=== PATIENT | female | born 1965 | race Caucasian/White ===

== ENCOUNTER 2024-09-11 14:09 | Outpatient (CLI) | payer BC, SELFPAY | END 2024-09-11 14:10 | disposition home or self-care (01) | PROVIDERS: PCP Family Medicine; Visit Provider Family Medicine | DX: N95.2 Postmenopausal atrophic vaginitis (principal); F41.8 Other specified anxiety disorders; Z11.51 Encounter for screening for human papillomavirus (HPV); Z11.59 Encounter for screening for other viral diseases | CPT/HCPCS: 80053; 80061; 86304; 86803 ==

== ENCOUNTER 2024-09-25 10:32 | Outpatient (CLI) | payer BC, SELFPAY ==
--- NOTE | 2024-09-25 10:45 | CRLHL7_ITS ---
For Patients: As a result of the Century Cures Act, medical imaging exams and procedure reports are released immediately into your electronic medical record. You may view this report before your referring provider. If you have questions, please contact your health care provider. CLINICAL HISTORY: Unspecified abdominal pain COMPARISON: none TECHNIQUE: Real time zarco scale imaging and color Doppler analysis was performed of the abdomen. FINDINGS: The liver is heterogeneous and coarsened in echotexture. There is a heterogeneous solid mass within the left hepatic lobe which distorts the contour of the liver. This measures 4.4 x 3.4 x 5.8 cm. Portal vein thrombosis is noted. No ascites. Pancreatic parenchyma is heterogeneous. Spleen is normal measuring 9.7 cm. There is no evidence of ascites. The gallbladder is of normal size and there is no evidence of sludge or stones within the gallbladder lumen. The gallbladder wall measures 2 mm in thickness. The common bile duct measures 3 mm in size within the jed hepatis. The kidneys appear symmetric. The right kidney measures 9.9 cm in length and the left kidney measures 8.6 cm. There is no evidence of a renal calculus or hydronephrosis. Proximal aorta 2.5 x 2.2 cm. Mid aorta 1.8 x 1.5 cm. Distal aorta 1.7 x 2.0 cm. Common iliac arteries measure 1.0 x 1.0 cm on the right and 1.1 x 0.9 cm on the left. No aneurysm. IMPRESSION: Chronic liver disease with left hepatic lobe mass which measures 5.8 cm. Portal vein thrombosis. Dynamic pre and postcontrast CT of the abdomen and pelvis recommended for further evaluation. Called to Dr. Casitllo 11:45 a.m. 09/25/2024. Dictated by Kana Ambrosio MD @ 09/25/2024 11:47:42 AM (Electronically Signed)
--- OUTSIDE RECORDS SUMMARY | 2024-09-26 01:03 | XMS_ITS ---
Author Name Interface, [id number] lity Address [place] [address] Organization [facility] Address [place] [address] Care Team Providers Care Door Puller Name Role Phone Kareen Adrianatnhony Solis Unavailable Unavailable Allergies and Adverse Reactions Medication/Group Name Reaction Severity Date Penicillins Rash 08/15/2022 Plan Date Type Value 03/14/2023 APPOINTMENT 1552 LAB MD 03/14/2023 APPOINTMENT 1552 LAB MD 02/13/2023 APPOINTMENT 1552 LAB MD 02/13/2023 APPOINTMENT 1552 LAB MD 08/15/2022 APPOINTMENT DETAILER HX MALIGNANT CANCER 08/15/2022 APPOINTMENT 1552 LAB 08/15/2022 LABORDER CMP 08/15/2022 LABORDER CBC w/ auto diff 08/15/2022 LABORDER CA 125 panel 03/14/2023 LABORDER CBC w/ auto diff 03/14/2023 LABORDER CMP 03/14/2023 LABORDER CA 125 panel Reason for Visit 1552 LAB MD Encounters Date Name 08/15/2022 Primary malignant ne oplasm of endometrium (disorder) Immunizations Date Name Route Dose Instructions Refusal Reason Stat us 09/28/2020 Covid-19 vaccine (Tiera) Completed Diagnostic Results Date Type Test Units Lower Limit Upper Limit Result Flag Comments Status Ordered By Specimen Source Lab Address 08/15 CMP Gluco se mg/dL 74.0 106.0 83 [facility]AL [facility]. [address] [place] [address]. [place] 08/15 CMP BUN mg/dL 7.0 18.0 12 [facility]. [address] [place] [address]. [place] 08/15 CMP Creat inine , mg/dL mg/dL 0.55 1.3 0.83 FINAL [facility]. [address] [place] [address]. [place] 08/15 CMP GFR estim ate ml/min /1.73m 2 83 Result based on the eGFR 2020 calculati on.60-89 mL/min/1. 73m^2 without kidney damage may be normal.60 -89 mL/min/1. 73m^2 for 3 months or more, along with kidney damage, mayindica te early kidney disease.C ginao n modified to the 2020 formula effective 07/08/22. FINAL [facility]. [address] [place] [address]. [place] 08/15 CMP BUN/C reati nine ratio 6.0 25.0 14.46 [facility]. [address] [place] [address]. [place] 08/15 CMP Sodiu m mmol/L 136.0 145.0 141 [facility]AL [facility]. [address] [place] [address]. [place] 08/15 CMP Potas sium mmol/L 3.5 5.1 4.2 FINAL [facility]. [address] [place] [address]. [place] 08/15 CMP Chlor ben mmol/L 97.0 107.0 103 [facility]AL [facility]. [address] [place] [address]. [place] 08/15 CMP CO2 mmol/L 21.0 32.0 29 [facility]. [address] [place] [address]. [place] 08/15 CMP Calci um mg/dL 8.5 10.1 8.7 [facility]. [address] [place] [address]. [place] 08/15 CMP Total prote in g/dL 6.4 8.2 7.7 [facility]. [address] [place] [address]. [place] 08/15 CMP Album in g/dL 3.4 5.0 3.4 [facility]. [address] [place] [address]. [place] 08/15 CMP Globu shiela g/dL 2.2 4.2 4.3 High [facility]. [address] [place] [address]. [place] 08/15 CMP A/G ratio 0.8 2.0 0.8 FINAL [facility]. [address] [place] [address]. [place] 08/15 CMP Bilir ubin, total mg/dL 0.2 1.0 0.30 [facility]. [address] [place] [address]. [place] 08/15 CMP Alkal ine phosp hatas e U/L 46.0 116.0 69 [facility]. [address] [place] [address]. [place] 08/15 CMP AST/S GOT U/L 15.0 37.0 23 [facility]. [address] [place] [address]. [place] 08/15 CMP ALT/S GPT U/L 14.0 59.0 34 [facility]. [address] [place] [address]. [place] 08/15 CA 125 panel CA 125, Sieme ns ICMA UNITS/ ML 2.0 30.2 12.1 CA 125 values from different assay methods can not be used interchan geably. is assay was performed using the AMS VariCodeass ay system. FINAL [facility]. [address] [place] [address]. [place] 08/15 CBC w/ auto diff WBC 10^3/u L 4.8 10.8 4.1 Low [facility]AL [facility]. [address] [place] [address] CLIA#[id number] 08/15 CBC w/ auto diff RBC 10^6/u L 4.2 5.4 4.13 Low [facility]. [address] [place] [address] CLIA#[id number] 08/15 CBC w/ auto diff HGB g/dL 12.0 16.0 13.2 [facility]. [address] [place] [address] CLIA#[id number] 08/15 CBC w/ auto diff HCT % 37.0 47.0 39.6 FINAL [facility]. [address] [place] [address] CLIA#[id number] 08/15 CBC w/ auto diff MCV fL 81.0 99.0 95.90 [facility]. [address] [place] [address] CLIA#[id number] 08/15 CBC w/ auto diff MCH pg 27.0 31.0 32.00 High [facility]AL [facility]. [address] [place] [address] CLIA#[id number] 08/15 CBC w/ auto diff MCHC g/dL 33.0 37.0 33.30 [facility]. [address] [place] [address] CLIA#[id number] 08/15 CBC w/ auto diff RDW % 10.5 14.5 14.40 [facility]. [address] [place] [address] CLIA#[id number] 08/15 CBC w/ auto diff PLT 10^3/u L 130.0 400.0 244 [facility]. [address] [place] [address] CLIA#[id number] 08/15 CBC w/ auto diff MPV fL 9.4 12.3 8.3 Low [facility]. [address] [place] [address] CLIA#[id number] 08/15 CBC w/ auto diff Jimi % % 40.0 77.0 47.3 FINAL [facility]. [address] [place] [address] CLIA#[id number] 08/15 CBC w/ auto diff LY % % 15.0 41.0 34.6 FINAL [facility]. [address] [place] [address] CLIA#[id number] 08/15 CBC w/ auto diff MO % % 3.0 11.[address] 17.[address] [facility]. [address] [place] [address] CLIA#[id number] 08/15 CBC w/ auto diff EO % % 0.0 3.0 0.0 [facility]. [address] [place] [address] CLIA#[id number] 08/15 CBC w/ auto diff BA % % 0.0 1.0 0.70 [facility]. [address] [place] [address] CLIA#[id number] 08/15 CBC w/ auto diff IG % % 0.0 0.5 0.20 [facility]. [address] [place] [address] CLIA#[id number] 08/15 CBC w/ auto diff Jimi # (ANC) 10^3/u L 1.5 6.5 1.9 [facility]. [address] [place] [address] CLIA#[id number] 08/15 CBC w/ auto diff LY # 10^3/u L 1.2 3.4 1.4 [facility]. [address] [place] [address] CLIA#[id number] 08/15 CBC w/ auto diff MO # 10^3/u L 0.0 0.8 0.7 [facility]. [address] [place] [address] CLIA#[id number] 08/15 CBC w/ auto diff EO # 10^3/u L 0.0 0.3 0.0 [facility]. [address] [place] [address] CLIA#[id number] 08/15 CBC w/ auto diff BA # 10^3/u L 0.0 0.2 0.03 [facility]. [address] [place] [address] CLIA#[id number] 08/15 CBC w/ auto diff IG # 10^3/u L 0.0 0.03 0.01 [facility]. [address] [place] [address] CLIA#[id number] 08/15 CBC w/ auto diff NRBC, absol chitina, x 10^3/ uL 0.0 0.01 0.00 [facility] Blood [place] [address] CLIA#[id number] 08/15 CBC w/ auto diff NRBC, % 0.0 0.2 0.00 [facility] [place] [address] CLIA#[id number] Medications Date Name Route Dose Frequency Instructions Start Date End Date Status Citalopram Oral PO 1.0 tablet daily active Problems Diagnosis Status Date of Diagnosi s Primary malignant neoplasm of endometrium (disor yocasta) Active Vital Signs Date Type Value 08/15/2022 Body Temperature 98.10 08/15/2022 Heart Beat 85.00 08/15/2022 Respiratory Rate 16.00 08/15/2022 Intravascular Systolic 138 08/15/2022 Intravascular Diastolic 74 08/15/2022 BSA 1.76 08/15/2022 Weight 159.40 08/15/2022 Height 63.00 08/15/2022 BMI 28.24 08/15/2022 Pain Scale 0.00 Notes Section * DIRECTOR OF DONOR [place] [address] ??P:?? PATIENT:??KALEIGH WILL :??1965 Date of Service:??08/15/2022 Referring Physician Reason for Consult/Chief Complaint endometrial cancer Principal Diagnosis * Primary malignant neoplasm of endometrium (disorder) ( First record:07/19/2017 Last record:07/19/2017; ICD-10:C54.1 ;Malignant neoplasm of endometrium ) Diagnosis* Treatment History ? Treatment History* History of Present Illness Kaleigh Will is a melonie 57 year old lady who presented with abnormal bleeding in 2018. 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 She then had robotic hyst/bso/sentinal LND showing Stage 1A, no LVSI, negative SLN. MMR intact. She did not have adjuvant therapy but in 01/24 she returned with bleeding and biopsy showed recurrent disease. She had PET showing widespread disease with peritoneal mets including a trocar site met. It was biopsied and grade 3. She underwent systemic chemo x 4of planned 6 cycles due to her intolerance to chemo. She then recurred again in the vaginal cuff [id number] and biopsy showed grade 2 c/w endometrial primary. She underwent EBRT and VBT completed 07/27.?? She has been in remission since that time.?? She reports genetic testing negative. PDL1 reportedly positive.?? The patient was requested to see me for further evaluation and management. Medical History endometrial cancer Surgical History ? Surgical History* robotic hyst/bso/SLND 2017 DRIFTMAN History ? DRIFTMAN History* G4 Family History ? Family History* mother colon cancer age 57 Social History Smoking Status Smoking Tobacco : none found; Smokeless Tobacco : none found; Vaping : none found Social History* nonsmoker, no etoh/drug abuse Review of Systems Gen: ??no fever/chills, no weight loss/gain, no night sweats Head: ??no headaches, dizziness, no confusion, no seizures, no tremor, no speech changes ENT: ??no vision or hearing changes respiratory: ??no shortness of breath/wheezing, no cough, no hemoptysis, no pleurisy CV: no shortness of breath, chest pain, palpitations, no syncope, no edema GI: ??No abdominal pain, no Nausea, no vomiting, no constipation, no diarrhea, no hematochezia, no jaundice, no hematemesis, no melena, no dyspepsia, no dysphagia : ??no vaginal discharge, no suprapubic pain, no abnormal vaginal bleeding; no dysuria, no hematuria, no nocturia, no urinary incontinence Musculoskeletal: ??no back pain, no muscle pain, no swollen joints, no joint redness, no bone pain,no spine tenderness lymphatics: no lymphadenopathy, no lymphedema Heme: no abnormal bleeding, no epistaxis, no gingival bleeding, no petechiae, no ecchymosis Skin: ??no rash/infection Psych: ??no anxiety/depression, normal concentration Medications * Progesterone Oral 100 mg capsule 2 CAPSULE(S) PO daily as directed * Travoprost Ophthalmic Drops 0.004 % 0.004 % drops 1 DROP(S) OU daily Medications reviewed and reconciled with patient.?? Medications* Allergies * Penicillins * bacitracin Allergies* Vitals/Performance Status Performance Status:??Karnofsky Not Assessed Vital Signs:??Height: 63 in; Weight: 159.4 lb; Blood pressure: 138/74, Pulse: 85, Temperature: 98.1F, Respirations: 16, Pain Scale: 0 Physical Exam Constitutional: ??VSSAF; appears stated age?? Gen: NAD, A&O x 3 Neuro: no focal deficit Eyes: normal pupils, equal, round, reactive ?? Neck: supple, no lymphadenopathy Lung: ??clear bilaterally ; good respiratory effort?? cardiovascular: regular rate and rhythm , normal S1S2 ?? abdomen: ??no abdominal mass, no hepatosplenomegaly, normal bowel sounds, ??soft abdomen, ??no tenderness to palpation?? Musculoskeletal: normal gait, adequate strength and muscle tone?? Genitourinary: ??normal external female genitalia, normal perineum, urethra, bladder, vaginal pritchard, vaginal cuff. Radiation changes noted. No palpable masses. Surgically absent uterus, cervix, adnexa?? Skin: no notable rashes or abnormalities?? Procedure Imaging Pathology Lab CBC None Today Chemistries LabResults 07/19/2017 07/09/2017 Chemistries Glucose mg/dL 89 BUN mg/dL 14 Creatinine, mg/dL 1 Sodium mmol/L 140 Potassium mmol/L 4.3 Chloride mmol/L 104 CO2 mmol/L 29 Calcium mg/dL 8.9 GFR estimate mL/min/1.73m2 68 Coags None Today Tumor Markers None Today Urine None Today Assessment 1. Endometrial Cancer, Stage 1A, Grade 1, recurrent in the peritoneum as grade 3 within one year and treated with chemo x 4 cycles. Recurrent in vaginal cuff 2019 and treated with EBRT and VBT. Now in Remission.?? Plan We have reviewed records from her referring physician. We discussed her extensive course and recurrences and treatment. She has been in remission since 2019 and feels well now. We have reviewed risksof recurrence and symptoms to watch for. She will have labs today and on return and we will plan for imaging with symptoms. She will call with any problems and plan to f/u in 6m.?? Problem List * Primary malignant neoplasm of endometrium (disorder) . Evan Adrian MD, [facility] Send copy of note to: MD Reji Carter MD . Electronically signed by Evan Adrian MD, [facility] 08/15/2022 14:08 CDT
--- OUTSIDE RECORDS SUMMARY | 2024-09-26 01:03 | XMS_ITS | CCD ---
Author Name Interface, [id number] lity Address [place] [address] Organization [facility] Address [place] breakthroughs[place] [address] Care Team Providers Care Printed Circuit Board Panels Plater Name Role Phone Evan Adrian Unavailable Unavailable Reason for Visit 1552 LAB MD Encounters Date Name 08/15/2022 Primary malignant ne oplasm of endometrium (disorder) Medications Date Name Route Dose Frequency Instructions Start Date End Date Status Citalopram Oral PO 1.0 tablet daily active 018 Travoprost Ophthalmic Drops 0.004 % OU 1.0 DROP(S) daily 07/20/19 18 2017 inactive 018 Progesterone Oral PO 2.0 CAPSULE(S ) daily as directed 07/20/19 18 2017 inactive Problems Diagnosis Status Date of Diagnosi s Body mass index [BMI] 21.0-21.9, adult Inactive Primary malignant neoplasm of endometrium (disor yocasta) Active Social History Date Name Value 08/14/2022 Sex Female
== END 2024-09-25 10:33 | disposition home or self-care (01) ==
LOC: US 10:33
PROVIDERS: PCP Family Medicine; Visit Provider Family Medicine
DX: R10.9 Unspecified abdominal pain (principal); K76.9 Liver disease, unspecified; R16.0 Hepatomegaly, not elsewhere classified; I81 Portal vein thrombosis
CPT/HCPCS: 76700

== ENCOUNTER 2024-09-26 10:40 | Outpatient (CLI) | payer BC, SELFPAY ==
--- OUTSIDE RECORDS SUMMARY | 2024-09-26 09:54 | XMS_ITS | Continuity of Care Document ---
Author Organization [facility] Address [address] [address] [place] [address] Phone Care Team Providers Care Bathing Suit Maker Name Role Phone No Information Unavailable Unavailable Advance Directives Directive Yes / No Effective Date File Name No Information Encounters Encounter Description Practice Location Reason(s) For Visit Diagnoses Date Provider Providers Copied on Encounter [facility], [address] [address], [place], [place], [id number], tel:[phone] No Information No Information Referring Provider: Aide Castillo MD E, [address], [place], [address]. tel:[phone] Family History Family Member Type Diagnosis Age At Onset No Information Payers Payer name Insurance type Covered green party ID Authoriza tion(s) No Information Social History Type Description Quantity Date Captured Comments Sex Female Smoking Status No Information Chief Complaint And Reason For Visit No Information Reason For Referral Reason For Referral No Information History Of Present Illness Encounter Date Complaint History Of Prese nt Illness No Information Functional Status Date Functional Assessmen t No Information Instructions Date Instruction Additional Infor mation No Information Assessments Type Assessment Date No Information Patient Care Teams Name Effective Dates (start - stop) Status Members No Information
--- OUTSIDE RECORDS SUMMARY | 2024-09-26 10:52 | XMS_ITS ---
Author Name Interface, G2Ucogthy lity Address [place] [address] Organization [facility] Address [place] [address] Care Team Providers Care Tire Technician Name Role Phone Kareen Adriananthony Solis Unavailable Unavailable Allergies and Adverse Reactions Medication/Group Name Reaction Severity Date Penicillins Rash 08/15/2022 Plan Date Type Value 03/14/2023 APPOINTMENT 1552 LAB MD 03/14/2023 APPOINTMENT 1552 LAB MD 02/13/2023 APPOINTMENT 1552 LAB MD 02/13/2023 APPOINTMENT 1552 LAB MD 08/15/2022 APPOINTMENT EXTENSION ASSOCIATE HX MALIGNANT CANCER 08/15/2022 APPOINTMENT 1552 LAB [...] Gluco se mg/dL 74.0 106.0 83 FINAL [facility]. [address] [place] [address]. [place] 08/15 CMP BUN mg/dL 7.[address] [facility]. [address] [place] [address]. [place] 08/15 CMP Creat inine , mg/dL mg/dL 0.55 1.3 0.83 FINAL [facility]. [address] [place] [address]. [place] 08/15 CMP GFR estim ate ml/min /1.73m 2 83 Result based on the eGFR 2020 calculati on.60-89 mL/min/1. 73m^2 without kidney damage may be normal.60 -89 mL/min/1. 73m^2 for 3 months or more, along with kidney damage, mayindica te early kidney disease.C ginao n modified to the 2020 formula effective 07/08/22. FINAL [facility]. [address] [place] [address]. [place] 08/15 CMP BUN/C reati nine ratio 6.[address] [facility]. [address] [place] [address]. [place] 08/15 CMP Sodiu m mmol/L 136.0 145.0 141 FINAL [facility]. [address] [place] [address]. [place] 08/15 CMP Potas sium mmol/L 3.5 5.1 4.2 FINAL [facility]. [address] [place] [address]. [place] 08/15 CMP Chlor ben mmol/L 97.0 107.0 103 FINAL [facility]. [address] [place] [address]. [place] 08/15 CMP CO2 mmol/L 21.0 32.0 29 FINAL [facility]. [address] [place] [address]. [place] 08/15 CMP Calci um mg/dL 8.[address] [facility]. [address] [place] [address]. [place] 08/15 CMP Total prote in g/dL 6.[address] [facility]. [address] [place] [address]. [place] 08/15 CMP Album in g/dL 3.[address] [facility]. [address] [place] [address]. [place] 08/15 CMP Globu shiela g/dL 2.[address] [facility]. [address] [place] [address]. [place] 08/15 CMP A/G ratio 0.8 2.0 0.8 FINAL [facility] Plasma [facility]. [address] [place] [address]. [place] 08/15 CMP Bilir ubin, total mg/dL 0.2 1.0 0.30 FINAL [facility] Plasma [facility]. [address] [place] [address]. [place] 08/15 CMP Alkal ine phosp hatas e U/L 46.0 116.0 69 FINAL [facility] Plasma [facility]. [address] [place] [address]. [place] 08/15 CMP AST/S GOT U/L 15.0 37.0 23 FINAL [facility] Plasma [facility]. [address] [place] [address]. [place] 08/15 CMP ALT/S GPT U/L 14.0 59.0 34 FINAL [facility] Plasma [facility]. [address] [place] [address]. [place] 08/15 CA 125 panel CA 125, Sieme ns ICMA UNITS/ ML 2.0 30.2 12.1 CA 125 values from different assay methods can not be used interchan geably. is assay was performed using the [employer] ay system. FINAL [facility] Serum [facility]. [address] [place] [address]. [place] 08/15 CBC w/ auto diff WBC 10^3/u L 4.8 10.8 4.1 Low FINAL [facility] Whole Blood [facility]. [address] [place] [address] CLIA#[id number] 08/15 CBC w/ auto diff RBC 10^6/u L 4.2 5.4 4.13 Low FINAL [facility] Whole Blood [facility]. [address] [place] [address] CLIA#[id number] 08/15 CBC w/ auto diff HGB g/dL 12.0 16.0 13.2 FINAL [facility] Whole Blood [facility]. [address] [place] [address] CLIA#[id number] 08/15 CBC w/ auto diff HCT % 37.0 47.0 39.6 FINAL [facility] Whole Blood [facility]. [address] [place] [address] CLIA#[id number] 08/15 CBC w/ auto diff MCV fL 81.0 99.0 95.90 FINAL [facility] Whole Blood [facility]. [address] [place] [address] CLIA#[id number] 08/15 CBC w/ auto diff MCH pg 27.0 31.0 32.00 High FINAL [facility] Whole Blood [facility]. [address] [place] [address] CLIA#[id number] 08/15 CBC w/ auto diff MCHC g/dL 33.0 37.0 33.30 FINAL [facility] Whole Blood [facility]. [address] [place] [address] CLIA#[id number] 08/15 CBC w/ auto diff RDW % 10.5 14.5 14.40 FINAL [facility] Whole Blood [facility]. [address] [place] [address] CLIA#[id number] 08/15 CBC w/ auto diff PLT 10^3/u L 130.0 400.0 244 FINAL [facility] Whole Blood [facility]. [address] [place] [address] CLIA#[id number] 08/15 CBC w/ auto diff MPV fL 9.4 12.3 8.3 Low FINAL [facility] Whole Blood [facility]. [address] [place] [address] CLIA#[id number] 08/15 CBC w/ auto diff Jimi % % 40.0 77.0 47.3 FINAL [facility] Whole Blood [facility]. [address] [place] [address] CLIA#[id number] 08/15 CBC w/ auto diff LY % % 15.0 41.0 34.6 FINAL [facility] Whole Blood [facility]. [address] [place] [address] CLIA#[id number] 08/15 CBC w/ auto diff MO % % 3.0 11.[address] Whole Blood [facility]. [address] [place] [address] CLIA#[id number] 08/15 CBC w/ auto diff EO % % 0.0 3.0 0.0 FINAL [facility] Whole Blood [facility]. [address] [place] [address] CLIA#[id number] 08/15 CBC w/ auto diff BA % % 0.0 1.0 0.70 FINAL [facility] Whole Blood [facility]. [address] [place] [address] CLIA#[id number] 08/15 CBC w/ auto diff IG % % 0.0 0.5 0.20 FINAL [facility] Whole Blood [facility]. [address] [place] [address] CLIA#[id number] 08/15 CBC w/ auto diff Jimi # (ANC) 10^3/u L 1.5 6.5 1.9 FINAL [facility] Whole Blood [facility]. [address] [place] [address] CLIA#[id number] 08/15 CBC w/ auto diff LY # 10^3/u L 1.2 3.4 1.4 [facility] Whole Blood [facility]. [address] [place] [address] CLIA#[id number] 08/15 CBC w/ auto diff MO # 10^3/u L 0.0 0.8 0.7 FINAL [facility] Whole Blood [facility]. [address] [place] [address] CLIA#[id number] 08/15 CBC w/ auto diff EO # 10^3/u L 0.0 0.3 0.0 FINAL [facility] Whole Blood [facility]. [address] [place] [address] CLIA#[id number] 08/15 CBC w/ auto diff BA # 10^3/u L 0.0 0.2 0.03 FINAL [facility] Whole Blood [facility]. [address] [place] [address] CLIA#[id number] 08/15 CBC w/ auto diff IG # 10^3/u L 0.0 0.03 0.01 FINAL [facility] Whole Blood [facility]. [address] [place] [address] CLIA#[id number] 08/15 CBC w/ auto diff NRBC, absol koi, x 10^3/ uL 0.0 0.01 0.00 FINAL [facility] Whole Blood [place] [address] CLIA#[id number] 08/15 CBC w/ auto diff NRBC, % 0.0 0.2 0.00 FINAL [facility] Whole Blood [place] [address] CLIA#[id number] Medications Date Name Route Dose Frequency Instructions [...] 08/15/2022 Pain Scale 0.00 Notes Section * LARD RENDERER [place] [address] ??P:?? PATIENT:??KALEIGH WILL :??1965 Date of Service:??08/15/2022 [...] then recurred again in the vaginal cuff [id number] and biopsy showed grade 2 c/w endometrial primary. She underwent EBRT and VBT completed 07/27.?? She has been in remission since that time.?? She reports genetic testing negative. PDL1 reportedly positive.?? The patient was requested to see me for further evaluation and management. Medical History endometrial cancer Surgical History ? Surgical History* robotic hyst/bso/SLND 2017 ASSISTANT TO THE PRESIDENT History ? ASSISTANT TO THE PRESIDENT History* G4 Family History ? Family History* [...] of endometrium (disorder) . Evan Adrian MD, [facility] Send copy of note to: MD Reji Carter MD . Electronically signed by Evan Adrian MD, [facility] 08/15/2022 14:08 CDT
--- OUTSIDE RECORDS SUMMARY | 2024-09-26 10:52 | XMS_ITS | CCD ---
Author Name Interface, G4Iusepba lity Address [place] [address] [facility] Address [place] [address] Care Team Providers Care Infusion Pharmacist Name Role Phone Evan Adrian Unavailable Unavailable Reason for Visit Encounters Medications Problems Social History
--- OUTSIDE RECORDS SUMMARY | 2024-09-26 10:52 | XMS_ITS ---
Author Name Interface, [id number] lity Address [place] [address] Organization [facility] Address 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 [address] [place] [address]. [place] 08/15 CMP BUN mg/dL 7.0 18.0 12 [facility]. [address] [place] [address]. [place] 08/15 CMP Creat inine , mg/dL mg/dL 0.55 1.3 0.83 FINAL [facility]. [address] [place] [address]. [place] 08/15 CMP GFR estim ate ml/min /1.73m 2 83 Result based on the eGFR 2020 calculati on.60-89 mL/min/1. 73m^2 without kidney damage may be normal.60 -89 mL/min/1. 73m^2 for 3 months or more, along with kidney damage, mayindica te early kidney disease.C ginao n modified to the 2020 formula effective 07/08/22. FINAL [facility]. [address] [place] [address]. [place] 08/15 CMP BUN/C reati nine ratio 6.0 25.0 14.46 [facility]. [address] [place] [address]. [place] 08/15 CMP Sodiu m mmol/L 136.0 145.0 141 FINAL [facility]. [address] [place] [address]. [place] 08/15 CMP Potas sium mmol/L 3.5 5.1 4.2 FINAL [facility]. [address] [place] [address]. [place] 08/15 CMP Chlor ben mmol/L 97.0 107.0 103 FINAL [facility]. [address] [place] [address]. [place] 08/15 CMP CO2 mmol/L 21.0 32.0 29 FINAL [facility]. [address] [place] [address]. [place] 08/15 CMP Calci um mg/dL 8.5 10.1 8.7 [facility]. [address] [place] [address]. [place] 08/15 CMP Total prote in g/dL 6.4 8.2 7.7 [facility]. [address] [place] [address]. [place] 08/15 CMP Album in g/dL 3.4 5.0 3.4 [facility]. [address] [place] [address]. [place] 08/15 CMP Globu shiela g/dL 2.2 4.2 4.3 High [facility]. [address] [place] [address]. [place] 08/15 CMP A/G ratio 0.8 2.0 0.8 FINAL [facility] Plasma [facility]. [address] [place] [address]. [place] 08/15 CMP Bilir ubin, total mg/dL 0.2 1.0 0.30 FINAL [facility] Plasma [facility]. [address] [place] [address]. [place] 08/15 CMP Alkal ine phosp hatas e U/L 46.0 116.0 69 FINAL [facility] Plasma [facility]. [address] [place] [address]. [place] 08/15 CMP AST/S GOT U/L 15.0 37.0 23 FINAL [facility] Plasma [facility]. [address] [place] [address]. [place] 08/15 CMP ALT/S GPT U/L 14.0 59.0 34 FINAL [facility] Plasma [facility]. [address] [place] [address]. [place] 08/15 CA 125 panel CA 125, Sieme ns ICMA UNITS/ ML 2.0 30.2 12.1 CA 125 values from different assay methods can not be used interchan geably. is assay was performed using the [employer] ay system. FINAL [facility] Serum [facility]. [address] [place] [address]. [place] 08/15 CBC w/ auto diff WBC 10^3/u L 4.8 10.8 4.1 Low FINAL [facility] Whole Blood [facility]. [address] [place] [address] CLIA#[id number] 08/15 CBC w/ auto diff RBC 10^6/u L 4.2 5.4 4.13 Low FINAL [facility] Whole Blood [facility]. [address] [place] [address] CLIA#[id number] 08/15 CBC w/ auto diff HGB g/dL 12.0 16.0 13.2 FINAL [facility] Whole Blood [facility]. [address] [place] [address] CLIA#[id number] 08/15 CBC w/ auto diff HCT % 37.0 47.0 39.6 FINAL [place] Whole Blood [facility]. [address] [place] [address] CLIA#[id number] 08/15 CBC w/ auto diff MCV fL 81.0 99.0 95.90 FINAL [facility] Whole Blood [facility]. [address] [place] [address] CLIA#[id number] 08/15 CBC w/ auto diff MCH pg 27.0 31.0 32.00 High FINAL [place] Whole Blood [facility]. [address] [place] [address] CLIA#[id number] 08/15 CBC w/ auto diff MCHC g/dL 33.0 37.0 33.30 FINAL [facility] Whole Blood [facility]. [address] [place] [address] CLIA#[id number] 08/15 CBC w/ auto diff RDW % 10.5 14.5 14.40 FINAL [facility] Whole Blood [facility]. [address] [place] [address] CLIA#[id number] 08/15 CBC w/ auto diff PLT 10^3/u L 130.0 400.0 244 FINAL [facility] Whole Blood [facility]. [address] [place] [address] CLIA#[id number] 08/15 CBC w/ auto diff MPV fL 9.4 12.3 8.3 Low FINAL [place] Whole Blood [facility]. [address] [place] [address] CLIA#[id number] 08/15 CBC w/ auto diff Jimi % % 40.0 77.0 47.3 FINAL [place] Whole Blood [facility]. [address] [place] [address] CLIA#[id number] 08/15 CBC w/ auto diff LY % % 15.0 41.0 34.6 FINAL [place] Whole Blood [facility]. [address] [place] [address] CLIA#[id number] 08/15 CBC w/ auto diff MO % % 3.0 11.[address] Whole Blood [facility]. [address] [place] [address] CLIA#[id number] 08/15 CBC w/ auto diff EO % % 0.0 3.0 0.0 FINAL [facility] Whole Blood [facility]. [address] [place] [address] CLIA#[id number] 08/15 CBC w/ auto diff BA % % 0.0 1.0 0.70 FINAL [facility] Whole Blood [facility]. [address] [place] [address] CLIA#[id number] 08/15 CBC w/ auto diff IG % % 0.0 0.5 0.20 FINAL [facility] Whole Blood [facility]. [address] [place] [address] CLIA#[id number] 08/15 CBC w/ auto diff Jimi # (ANC) 10^3/u L 1.5 6.5 1.9 FINAL [facility] Whole Blood [facility]. [address] [place] [address] CLIA#[id number] 08/15 CBC w/ auto diff LY # 10^3/u L 1.2 3.4 1.4 [facility] Whole Blood [facility]. [address] [place] [address] CLIA#[id number] 08/15 CBC w/ auto diff MO # 10^3/u L 0.0 0.8 0.7 FINAL [facility] Whole Blood [facility]. [address] [place] [address] CLIA#[id number] 08/15 CBC w/ auto diff EO # 10^3/u L 0.0 0.3 0.0 FINAL [facility] Whole Blood [facility]. [address] [place] [address] CLIA#[id number] 08/15 CBC w/ auto diff BA # 10^3/u L 0.0 0.2 0.03 FINAL [facility] Whole Blood [facility]. [address] [place] [address] CLIA#[id number] 08/15 CBC w/ auto diff IG # 10^3/u L 0.0 0.03 0.01 FINAL [facility] Whole Blood [facility]. [address] [place] [address] CLIA#[id number] 08/15 CBC w/ auto diff NRBC, absol wainwright, x 10^3/ uL 0.0 0.01 0.00 FINAL [facility] Whole Blood [place] [address] CLIA#[id number] 08/15 CBC w/ auto diff NRBC, % 0.0 0.2 0.00 FINAL [facility] Whole Blood [place] [address] CLIA#[id number] Medications Date Name Route Dose Frequency Instructions [...] 08/15/2022 Pain Scale 0.00 Notes Section * CATALOGUE [place]ER [place] [address] ??P:?? PATIENT:??KALEIGH WILL :??1965 Date of Service:??08/15/2022 [...] then recurred again in the vaginal cuff [id number] and biopsy showed grade 2 c/w endometrial primary. She underwent EBRT and VBT completed 07/27.?? She has been in remission since that time.?? She reports genetic testing negative. PDL1 reportedly positive.?? The patient was requested to see me for further evaluation and management. Medical History endometrial cancer Surgical History ? Surgical History* robotic hyst/bso/SLND 2017 AS400 ADMINISTRATOR History ? AS400 ADMINISTRATOR History* G4 Family History ? Family History* [...] of endometrium (disorder) . [place] Adrian MD, [facility] [place] Send copy of note to: MD Reji Carter MD . Electronically signed by Evan Adrian MD, [facility] 08/15/2022 14:08 CDT
--- OUTSIDE RECORDS SUMMARY | 2024-09-26 10:53 | XMS_ITS | CCD ---
Author Name Interface, D4Sbwgxks lity Address [place] [address] [facility] Address More breakthroughs[place] [address] Care Team Providers Care Communications Assistant Name Role Phone Evan Adrian Unavailable Unavailable Reason for Visit Encounters Medications Problems Social History
--- NOTE | 2024-09-26 11:00 | CRLHL7_ITS ---
For Patients: As a result of the Century Cures Act, medical imaging exams and procedure reports are released immediately into your electronic medical record. You may view this report before your referring provider. If you have questions, please contact your health care provider. 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 COMPARISON: 09/25/2024 abdominal ultrasound TECHNIQUE: CT of the abdomen and pelvis with and without intravenous contrast (74 milliliters Isovue 370). FINDINGS: Lung bases: No pleural effusion. Status post bilateral breast implants. Tiny hiatal hernia. Liver: There are multiple somewhat ill-defined heterogeneously hypoattenuating masses within the left greater than right hepatic lobe the largest of which is a segment 2/3 5.4 x 4.6 centimeter mass which causes prominent anterior bulging of the liver capsule (8/36). The main portal vein becomes difficult to identify as it approaches the hepatic hilum and becomes decreased in attenuation adjacent to multiple ill-defined hepatic masses at this region which, although somewhat difficult to characterize due to contrast bolus, is concerning for either bland thrombus or tumor in vein (8/34). The hepatic branches of the main portal vein are also difficult to visualize. Non cirrhotic liver morphology. There is a 8 millimeter lipoma in the right hepatic lobe (16/14). Gallbladder and biliary tree: Normal CT appearance of the gallbladder. There is mild multifocal left-sided intrahepatic biliary ductal dilation. No evidence of extrahepatic biliary ductal dilation. Spleen: No splenomegaly. Pancreas: Normal. Adrenal glands: Normal. Kidneys and ureters: No hydroureteronephrosis. No suspicious renal lesions are identified. 3 millimeter nonobstructing right lower pole renal calculus. Bladder: Unremarkable CT appearance. Visualized reproductive organs: Status post hysterectomy. Gastrointestinal tract: No focal abnormally dilated loops of bowel. Peritoneal cavity: No free fluid or free air. Lymph nodes: No enlarged abdominal or pelvic lymph nodes by CT size criteria. Vessels: No abdominal aortic aneurysm. Please see above for findings pertaining to the portal venous vasculature. Abdominal and pelvic wall: Mild diastasis of the rectus abdominis musculature. There is a indeterminate 22 x 11 millimeter soft tissue nodule within the subcutaneous fat of the right lateral abdominal wall immediately superficial to the lateral abdominal wall musculature (8/55). There is a partially imaged at least 23 x 13 millimeter soft tissue nodule in the subcutaneous fat of the right perineum anterolateral to the anus (8/129). Bones: There are osseous degenerative changes. There is diffuse osseous demineralization. There is a bilateral L5 pars defect with 8 millimeters anterolisthesis of L5 on S1. There is marked endplate irregularity and/or erosion, joint space narrowing, and subchondral sclerosis associated with L5-S1. There is slight anterior vertebral body wedging centered at the thoracolumbar junction. IMPRESSION: 1. Multiple somewhat ill-defined heterogeneously hypoattenuating masses in the left greater than right hepatic lobe are most suspicious for metastatic disease. Recommend tissue diagnosis. 2. The main portal vein becomes difficult to identify as it approaches the hepatic hilum and becomes decreased in attenuation adjacent to multiple ill-defined hepatic masses at this region which, although somewhat difficult to characterize due to contrast bolus, is concerning for either bland thrombus or tumor in vein. 3. Mild multifocal left-sided intrahepatic biliary ductal dilation. 4. Indeterminate 2.2 centimeter soft tissue nodule in the subcutaneous fat of the right lateral abdominal wall and partially imaged indeterminate at least 23 millimeter soft tissue nodule in the subcutaneous fat of the right perineum. 5. Bilateral L5 pars defects with 8 millimeters anterolisthesis of L5 on S1. Marked endplate irregularity and/or erosion, joint space narrowing, and subchondral sclerosis at L5-S1 is most likely degenerative, but should be correlated with physical exam to exclude infection as this can sometimes have a similar CT appearance. 6. Nonobstructing 3 millimeter right lower pole renal calculus. Please note that all CT scans at this facility use dose modulation, iterative reconstruction, and/or weight-based dosing when appropriate to reduce radiation dose to as low as reasonably achievable. Dictated by Hussain Field MD @ 09/26/2024 12:34:34 PM (Electronically Signed)
--- OUTSIDE RECORDS SUMMARY | 2024-09-26 13:53 | XMS_ITS | CCD ---
Author Name Interface, [id number] lity Address [place] [address] [facility] Address [place] breakthrough[place] [address] Care Team Providers Care Automotive Electrical Helper Name Role Phone Evan Adrian Unavailable Unavailable Reason for Visit Encounters Medications Problems Social History
--- OUTSIDE RECORDS SUMMARY | 2024-09-26 13:53 | XMS_ITS ---
Author Name Interface, [id number] lity Address [place] [address] Organization [facility] Address 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 [address] [place] [address]. [place] 08/15 CMP BUN mg/dL 7.0 18.0 12 [facility]. [address] [place] [address]. [place] 08/15 CMP Creat inine , mg/dL mg/dL 0.55 1.3 0.83 FINAL [facility]. [address] [place] [address]. [place] 08/15 CMP GFR estim ate ml/min /1.73m 2 83 Result based on the eGFR 2020 calculati on.60-89 mL/min/1. 73m^2 without kidney damage may be normal.60 -89 mL/min/1. 73m^2 for 3 months or more, along with kidney damage, mayindica te early kidney disease.C ginao n modified to the 2020 formula effective 07/08/22. FINAL [facility]. [address] [place] [address]. [place] 08/15 CMP BUN/C reati nine ratio 6.0 25.0 14.46 [facility]. [address] [place] [address]. [place] 08/15 CMP Sodiu m mmol/L 136.0 145.0 141 FINAL [facility]. [address] [place] [address]. [place] 08/15 CMP Potas sium mmol/L 3.5 5.1 4.2 FINAL [facility]. [address] [place] [address]. [place] 08/15 CMP Chlor ben mmol/L 97.0 107.0 103 FINAL [facility]. [address] [place] [address]. [place] 08/15 CMP CO2 mmol/L 21.0 32.0 29 FINAL [facility]. [address] [place] [address]. [place] 08/15 CMP Calci um mg/dL 8.5 10.1 8.7 [facility]. [address] [place] [address]. [place] 08/15 CMP Total prote in g/dL 6.4 8.2 7.7 [facility]. [address] [place] [address]. [place] 08/15 CMP Album in g/dL 3.4 5.0 3.4 [facility]. [address] [place] [address]. [place] 08/15 CMP Globu shiela g/dL 2.2 4.2 4.3 High [facility]. [address] [place] [address]. [place] 08/15 CMP A/G ratio 0.8 2.0 0.8 FINAL [facility] Plasma [facility]. [address] [place] [address]. [place] 08/15 CMP Bilir ubin, total mg/dL 0.2 1.0 0.30 FINAL [facility] Plasma [facility]. [address] [place] [address]. [place] 08/15 CMP Alkal ine phosp hatas e U/L 46.0 116.0 69 FINAL [facility] Plasma [facility]. [address] [place] [address]. [place] 08/15 CMP AST/S GOT U/L 15.0 37.0 23 FINAL [facility] Plasma [facility]. [address] [place] [address]. [place] 08/15 CMP ALT/S GPT U/L 14.0 59.0 34 FINAL [facility] Plasma [facility]. [address] [place] [address]. [place] 08/15 CA 125 panel CA 125, Sieme ns ICMA UNITS/ ML 2.0 30.2 12.1 CA 125 values from different assay methods can not be used interchan geably. is assay was performed using the Nimbula[employer] ay system. FINAL [facility] Serum [facility]. [address] [place] [address]. [place] 08/15 CBC w/ auto diff WBC 10^3/u L 4.8 10.8 4.1 Low FINAL [facility] Whole Blood [facility]. [address] [place] [address] CLIA#[id number] 08/15 CBC w/ auto diff RBC 10^6/u L 4.2 5.4 4.13 Low FINAL [facility] Whole Blood [facility]. [address] [place] [address] CLIA#[id number] 08/15 CBC w/ auto diff HGB g/dL 12.0 16.0 13.2 FINAL [facility] Whole Blood [facility]. [address] [place] [address] CLIA#[id number] 08/15 CBC w/ auto diff HCT % 37.0 47.0 39.6 FINAL [place] Whole Blood [facility]. [address] [place] [address] CLIA#[id number] 08/15 CBC w/ auto diff MCV fL 81.0 99.0 95.90 FINAL [facility] Whole Blood [facility]. [address] [place] [address] CLIA#[id number] 08/15 CBC w/ auto diff MCH pg 27.0 31.0 32.00 High FINAL [place] [facility] Whole Blood [facility]. [address] [place] [address] CLIA#[id number] 08/15 CBC w/ auto diff MCHC g/dL 33.0 37.0 33.30 FINAL [facility] Whole Blood [facility]. [address] [place] [address] CLIA#[id number] 08/15 CBC w/ auto diff RDW % 10.5 14.5 14.40 FINAL [facility] Whole Blood [facility]. [address] [place] [address] CLIA#[id number] 08/15 CBC w/ auto diff PLT 10^3/u L 130.0 400.0 244 FINAL [facility] Whole Blood [facility]. [address] [place] [address] CLIA#[id number] 08/15 CBC w/ auto diff MPV fL 9.4 12.3 8.3 Low FINAL [place] [facility] Whole Blood [facility]. [address] [place] [address] CLIA#[id number] 08/15 CBC w/ auto diff Jimi % % 40.0 77.0 47.3 FINAL [facility] [place] Whole Blood [facility]. [address] [place] [address] CLIA#[id number] 08/15 CBC w/ auto diff LY % % 15.0 41.0 34.6 FINAL [place] Whole Blood [facility]. [address] [place] [address] CLIA#[id number] 08/15 CBC w/ auto diff MO % % 3.0 11.0 17.2 High FIN[address] Whole Blood [facility]. [address] [place] [address] CLIA#[id number] 08/15 CBC w/ auto diff EO % % 0.0 3.0 0.0 FINAL [facility] Whole Blood [facility]. [address] [place] [address] CLIA#[id number] 08/15 CBC w/ auto diff BA % % 0.0 1.0 0.70 FINAL [facility] Whole Blood [facility]. [address] [place] [address] CLIA#[id number] 08/15 CBC w/ auto diff IG % % 0.0 0.5 0.20 FINAL [facility] Whole Blood [facility]. [address] [place] [address] CLIA#[id number] 08/15 CBC w/ auto diff Jimi # (ANC) 10^3/u L 1.5 6.5 1.9 FINAL [facility] Whole Blood [facility]. [address] [place] [address] CLIA#[id number] 08/15 CBC w/ auto diff LY # 10^3/u L 1.2 3.4 1.4 [facility] Whole Blood [facility]. [address] [place] [address] CLIA#[id number] 08/15 CBC w/ auto diff MO # 10^3/u L 0.0 0.8 0.7 FINAL [facility] Whole Blood [facility]. [address] [place] [address] CLIA#[id number] 08/15 CBC w/ auto diff EO # 10^3/u L 0.0 0.3 0.0 FINAL [facility] Whole Blood [facility]. [address] [place] [address] CLIA#[id number] 08/15 CBC w/ auto diff BA # 10^3/u L 0.0 0.2 0.03 FINAL [facility] Whole Blood [facility]. [address] [place] [address] CLIA#[id number] 08/15 CBC w/ auto diff IG # 10^3/u L 0.0 0.03 0.01 FINAL [facility] Whole Blood [facility]. [address] [place] [address] CLIA#[id number] 08/15 CBC w/ auto diff NRBC, absol [place], x 10^3/ uL 0.0 0.01 0.00 FINAL [facility] Whole Blood [place] [address] CLIA#[id number] 08/15 CBC w/ auto diff NRBC, % 0.0 0.2 0.00 FINAL [facility] Whole Blood [place] [address] CLIA#[id number] Medications Date Name Route Dose Frequency Instructions [...] 08/15/2022 Pain Scale 0.00 Notes Section * CHIEF CONTROLLER [place] [address] ??P:?? PATIENT:??KALEIGH WILL :??1965 Date of Service:??08/15/2022 [...] then recurred again in the vaginal cuff [id number] and biopsy showed grade 2 c/w endometrial primary. She underwent EBRT and VBT completed 07/27.?? She has been in remission since that time.?? She reports genetic testing negative. PDL1 reportedly positive.?? The patient was requested to see me for further evaluation and management. Medical History endometrial cancer Surgical History ? 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 ANNEALING OVEN OPERATOR History* G4 Family History ? Family History* [...] of endometrium (disorder) . Evan Adrian MD, [facility] Send copy of note to: MD Reji Carter MD . Electronically signed by Evan Adrian MD, [facility] 08/15/2022 14:08 CDT
--- OUTSIDE RECORDS SUMMARY | 2024-09-26 13:53 | XMS_ITS ---
Author Name Interface, [id number] lity Address [place] [address] Organization [facility] Address [place] breakthrough[place] [address] Care Team Providers Care Sales Applications Engineer Name Role Phone Kareen Adriananthony Solis Unavailable Unavailable Allergies and Adverse Reactions Medication/Group Name Reaction Severity Date Penicillins Rash 08/15/2022 Plan Date Type Value 03/14/2023 APPOINTMENT 1552 LAB MD 03/14/2023 APPOINTMENT 1552 LAB MD 02/13/2023 APPOINTMENT 1552 LAB MD 02/13/2023 APPOINTMENT 1552 LAB MD 08/15/2022 APPOINTMENT DIRECTOR OF CARDIOLOGY SERVICE LINE HX MALIGNANT CANCER 08/15/2022 APPOINTMENT 1552 LAB [...] Gluco se mg/dL 74.0 106.0 83 FINAL [facility]. [address] [place] [address]. [place] 08/15 CMP BUN mg/dL 7.0 18.0 12 [facility]. [address] [place] [address]. [place] 08/15 CMP Creat inine , mg/dL mg/dL 0.55 1.3 0.83 FINAL [facility]. [address] [place] [address]. [place] 08/15 CMP GFR estim ate ml/min /1.73m 2 83 Result based on the eGFR 2020 calculati on.60-89 mL/min/1. 73m^2 without kidney damage may be normal.60 -89 mL/min/1. 73m^2 for 3 months or more, along with kidney damage, mayindica te early kidney disease.C ginao n modified to the 2020 formula effective 07/08/22. FINAL [facility]. [address] [place] [address]. [place] 08/15 CMP BUN/C reati nine ratio 6.0 25.0 14.46 [facility]. [address] [place] [address]. [place] 08/15 CMP Sodiu m mmol/L 136.0 145.0 141 FINAL [facility]. [address] [place] [address]. [place] 08/15 CMP Potas sium mmol/L 3.5 5.1 4.2 FINAL [facility]. [address] [place] [address]. [place] 08/15 CMP Chlor ben mmol/L 97.0 107.0 103 FINAL [facility]. [address] [place] [address]. [place] 08/15 CMP CO2 mmol/L 21.0 32.0 29 FINAL [facility]. [address] [place] [address]. [place] 08/15 CMP Calci um mg/dL 8.5 10.1 8.7 [facility]. [address] [place] [address]. [place] 08/15 CMP Total prote in g/dL 6.4 8.2 7.7 [facility]. [address] [place] [address]. [place] 08/15 CMP Album in g/dL 3.4 5.0 3.4 [facility]. [address] [place] [address]. [place] 08/15 CMP Globu shiela g/dL 2.2 4.2 4.3 High [facility]. [address] [place] [address]. [place] 08/15 CMP A/G ratio 0.8 2.0 0.8 FINAL [facility] Plasma [facility]. [address] [place] [address]. [place] 08/15 CMP Bilir ubin, total mg/dL 0.2 1.0 0.30 FINAL [facility] Plasma [facility]. [address] [place] [address]. [place] 08/15 CMP Alkal ine phosp hatas e U/L 46.0 116.0 69 FINAL [facility] Plasma [facility]. [address] [place] [address]. [place] 08/15 CMP AST/S GOT U/L 15.0 37.0 23 FINAL [facility] Plasma [facility]. [address] [place] [address]. [place] 08/15 CMP ALT/S GPT U/L 14.0 59.0 34 FINAL [facility] Plasma [facility]. [address] [place] [address]. [place] 08/15 CA 125 panel CA 125, Sieme ns ICMA UNITS/ ML 2.0 30.2 12.1 CA 125 values from different assay methods can not be used interchan geably. is assay was performed using the AYLIENass ay system. FINAL [facility] Serum [facility]. [address] [place] [address]. [place] 08/15 CBC w/ auto diff WBC 10^3/u L 4.8 10.8 4.1 Low FINAL [facility] Whole Blood [facility]. [address] [place] [address] CLIA#[id number] 08/15 CBC w/ auto diff RBC 10^6/u L 4.2 5.4 4.13 Low FINAL [facility] Whole Blood [facility]. [address] [place] [address] CLIA#[id number] 08/15 CBC w/ auto diff HGB g/dL 12.0 16.0 13.2 FINAL [facility] Whole Blood [facility]. [address] [place] [address] CLIA#[id number] 08/15 CBC w/ auto diff HCT % 37.0 47.0 39.6 FINAL [place] Whole Blood [facility]. [address] [place] [address] CLIA#[id number] 08/15 CBC w/ auto diff MCV fL 81.0 99.0 95.90 FINAL [facility] Whole Blood [facility]. [address] [place] [address] CLIA#[id number] 08/15 CBC w/ auto diff MCH pg 27.0 31.0 32.00 High FINAL [place] Whole Blood [facility]. [address] [place] [address] CLIA#[id number] 08/15 CBC w/ auto diff MCHC g/dL 33.0 37.0 33.30 FINAL [facility] Whole Blood [facility]. [address] [place] [address] CLIA#[id number] 08/15 CBC w/ auto diff RDW % 10.5 14.5 14.40 FINAL [facility] Whole Blood [facility]. [address] [place] [address] CLIA#[id number] 08/15 CBC w/ auto diff PLT 10^3/u L 130.0 400.0 244 FINAL [facility] Whole Blood [facility]. [address] [place] [address] CLIA#[id number] 08/15 CBC w/ auto diff MPV fL 9.4 12.3 8.3 Low FINAL [place] Whole Blood [facility]. [address] [place] [address] CLIA#[id number] 08/15 CBC w/ auto diff Jimi % % 40.0 77.0 47.3 FINAL [place] [facility] Whole Blood [facility]. [address] [place] [address] CLIA#[id number] 08/15 CBC w/ auto diff LY % % 15.0 41.0 34.6 FINAL [place] [facility] Whole Blood [facility]. [address] [place] [address] CLIA#[id number] 08/15 CBC w/ auto diff MO % % 3.0 11.[address] Whole Blood [facility]. [address] [place] [address] CLIA#[id number] 08/15 CBC w/ auto diff EO % % 0.0 3.0 0.0 FINAL [facility] Whole Blood [facility]. [address] [place] [address] CLIA#[id number] 08/15 CBC w/ auto diff BA % % 0.0 1.0 0.70 FINAL [facility] Whole Blood [facility]. [address] [place] [address] CLIA#[id number] 08/15 CBC w/ auto diff IG % % 0.0 0.5 0.20 FINAL [facility] Whole Blood [facility]. [address] [place] [address] CLIA#[id number] 08/15 CBC w/ auto diff Jimi # (ANC) 10^3/u L 1.5 6.5 1.9 FINAL [facility] Whole Blood [facility]. [address] [place] [address] CLIA#[id number] 08/15 CBC w/ auto diff LY # 10^3/u L 1.2 3.4 1.4 [facility] Whole Blood [facility]. [address] [place] [address] CLIA#[id number] 08/15 CBC w/ auto diff MO # 10^3/u L 0.0 0.8 0.7 FINAL [facility] Whole Blood [facility]. [address] [place] [address] CLIA#[id number] 08/15 CBC w/ auto diff EO # 10^3/u L 0.0 0.3 0.0 FINAL [facility] Whole Blood [facility]. [address] [place] [address] CLIA#[id number] 08/15 CBC w/ auto diff BA # 10^3/u L 0.0 0.2 0.03 FINAL [facility] Whole Blood [facility]. [address] [place] [address] CLIA#[id number] 08/15 CBC w/ auto diff IG # 10^3/u L 0.0 0.03 0.01 FINAL [facility] Whole Blood [facility]. [address] [place] [address] CLIA#[id number] 08/15 CBC w/ auto diff NRBC, absol [place], x 10^3/ uL 0.0 0.01 0.00 FINAL [facility] Whole Blood [place] [address] CLIA#[id number] 08/15 CBC w/ auto diff NRBC, % 0.0 0.2 0.00 FINAL [facility] Whole Blood [place] [address] CLIA#[id number] Medications Date Name Route Dose Frequency Instructions [...] 08/15/2022 Pain Scale 0.00 Notes Section * GLASS BLOCK BENDER [place] [address] ??P:?? PATIENT:??KALEIGH WILL :??1965 Date of Service:??08/15/2022 [...] then recurred again in the vaginal cuff [id number] and biopsy showed grade 2 c/w endometrial primary. She underwent EBRT and VBT completed 07/27.?? She has been in remission since that time.?? She reports genetic testing negative. PDL1 reportedly positive.?? The patient was requested to see me for further evaluation and management. Medical History endometrial cancer Surgical History ? Surgical History* robotic hyst/bso/SLND 2017 ROLLER LEVELER History ? ROLLER LEVELER History* G4 Family History ? Family History* [...] Evan Adrian MD, [facility] Send copy of note to: MD Reji Carter MD . Electronically signed by Evan Adrian MD, [facility] 08/15/2022 14:08 CDT
--- OUTSIDE RECORDS SUMMARY | 2024-09-26 13:53 | XMS_ITS | CCD ---
Author Name Interface, [id number] lity Address [place] [address] [facility] Address More breakthroughs[place] [address] Care Team Providers Care Earth Science Technical Officer Name Role Phone Evan Adrian Unavailable Unavailable Reason for Visit Encounters Medications Problems Social History
--- OUTSIDE RECORDS SUMMARY | 2024-09-27 00:16 | XMS_ITS | CCD ---
Author Name Interface, [id number] lity Address More breakthroughs[place] [address] [facility] Address More breakthroughs. [place] [address] Care Team Providers Care Mechanical Engineering Intern Name Role Phone Evan Adrian Unavailable Unavailable Reason for Visit Encounters Medications Problems Social History
--- OUTSIDE RECORDS SUMMARY | 2024-09-27 00:16 | XMS_ITS ---
Author Name Interface, H2Vofsxaj lity Address [place] [address] Organization [facility] Address [place] [address] Care Team Providers Care Networking Administrator Name Role Phone NguyễnKareenanthony Solis Unavailable Unavailable Allergies and Adverse Reactions Medication/Group Name Reaction Severity Date Penicillins Rash 08/15/2022 Plan Date Type Value 03/14/2023 APPOINTMENT 1552 LAB MD 03/14/2023 APPOINTMENT 1552 LAB MD 02/13/2023 APPOINTMENT 1552 LAB MD 02/13/2023 APPOINTMENT 1552 LAB MD 08/15/2022 APPOINTMENT OPERATOR ASSISTANT I CEMENTING HX MALIGNANT CANCER 08/15/2022 APPOINTMENT 1552 LAB [...] Gluco se mg/dL 74.0 106.0 83 FINAL [facility]. [address] [place] [address]. [place] 08/15 CMP BUN mg/dL 7.0 18.0 12 [facility]. [address] [place] [address]. [place] 08/15 CMP Creat inine , mg/dL mg/dL 0.55 1.3 0.83 FINAL [facility]. [address] [place] [address]. [place] 08/15 CMP GFR estim ate ml/min /1.73m 2 83 Result based on the eGFR 2020 calculati on.60-89 mL/min/1. 73m^2 without kidney damage may be normal.60 -89 mL/min/1. 73m^2 for 3 months or more, along with kidney damage, mayindica te early kidney disease.C ginao n modified to the 2020 formula effective 07/08/22. FINAL [facility]. [address] [place] [address]. [place] 08/15 CMP BUN/C reati nine ratio 6.0 25.0 14.46 [facility]. [address] [place] [address]. [place] 08/15 CMP Sodiu m mmol/L 136.0 145.0 141 FINAL [facility]. [address] [place] [address]. [place] 08/15 CMP Potas sium mmol/L 3.5 5.1 4.2 FINAL [facility]. [address] [place] [address]. [place] 08/15 CMP Chlor ben mmol/L 97.0 107.0 103 FINAL [facility]. [address] [place] [address]. [place] 08/15 CMP CO2 mmol/L 21.0 32.0 29 FINAL [facility]. [address] [place] [address]. [place] 08/15 CMP Calci um mg/dL 8.5 10.1 8.7 [facility]. [address] [place] [address]. [place] 08/15 CMP Total prote in g/dL 6.4 8.2 7.7 [facility]. [address] [place] [address]. [place] 08/15 CMP Album in g/dL 3.4 5.0 3.4 [facility]. [address] [place] [address]. [place] 08/15 CMP Globu shiela g/dL 2.2 4.2 4.3 High [facility]. [address] [place] [address]. [place] 08/15 CMP A/G ratio 0.8 2.0 0.8 FINAL [facility] Plasma [facility]. [address] [place] [address]. [place] 08/15 CMP Bilir ubin, total mg/dL 0.2 1.0 0.30 FINAL [facility] Plasma [facility]. [address] [place] [address]. [place] 08/15 CMP Alkal ine phosp hatas e U/L 46.0 116.0 69 FINAL [facility] Plasma [facility]. [address] [place] [address]. [place] 08/15 CMP AST/S GOT U/L 15.0 37.0 23 FINAL [facility] Plasma [facility]. [address] [place] [address]. [place] 08/15 CMP ALT/S GPT U/L 14.0 59.0 34 FINAL [facility] Plasma [facility]. [address] [place] [address]. [place] 08/15 CA 125 panel CA 125, Sieme ns ICMA UNITS/ ML 2.0 30.2 12.1 CA 125 values from different assay methods can not be used interchan geably. is assay was performed using the Smuleass ay system. FINAL [facility] Serum [facility]. [address] [place] [address]. [place] 08/15 CBC w/ auto diff WBC 10^3/u L 4.8 10.8 4.1 Low FINAL [facility] Whole Blood [facility]. [address] [place] [address] CLIA#[id number] 08/15 CBC w/ auto diff RBC 10^6/u L 4.2 5.4 4.13 Low FINAL [facility] Whole Blood [facility]. [address] [place] [address] CLIA#[id number] 08/15 CBC w/ auto diff HGB g/dL 12.0 16.0 13.2 FINAL [facility] Whole Blood [facility]. [address] [place] [address] CLIA#[id number] 08/15 CBC w/ auto diff HCT % 37.0 47.0 39.6 FINAL [facility] [place] Whole Blood [facility]. [address] [place] [address] CLIA#[id number] 08/15 CBC w/ auto diff MCV fL 81.0 99.0 95.90 FINAL [facility] Whole Blood [facility]. [address] [place] [address] CLIA#[id number] 08/15 CBC w/ auto diff MCH pg 27.0 31.0 32.00 High FINAL [facility] [place] Whole Blood [facility]. [address] [place] [address] CLIA#[id number] 08/15 CBC w/ auto diff MCHC g/dL 33.0 37.0 33.30 FINAL [facility] Whole Blood [facility]. [address] [place] [address] CLIA#[id number] 08/15 CBC w/ auto diff RDW % 10.5 14.5 14.40 FINAL [facility] Whole Blood [facility]. [address] [place] [address] CLIA#[id number] 08/15 CBC w/ auto diff PLT 10^3/u L 130.0 400.0 244 FINAL [facility] Whole Blood [facility]. [address] [place] [address] CLIA#[id number] 08/15 CBC w/ auto diff MPV fL 9.4 12.3 8.3 Low FINAL [facility] [place] Whole Blood [facility]. [address] [place] [address] CLIA#[id number] 08/15 CBC w/ auto diff Jimi % % 40.0 77.0 47.3 FINAL [facility] [place] Whole Blood [facility]. [address] [place] [address] CLIA#[id number] 08/15 CBC w/ auto diff LY % % 15.0 41.0 34.6 FINAL [facility] [place] Whole Blood [facility]. [address] [place] [address] CLIA#[id number] 08/15 CBC w/ auto diff MO % % 3.0 11.[address] [facility]. [address] [place] [address] CLIA#[id number] 08/15 CBC w/ auto diff EO % % 0.0 3.0 0.0 FINAL [facility] Whole Blood [facility]. [address] [place] [address] CLIA#[id number] 08/15 CBC w/ auto diff BA % % 0.0 1.0 0.70 FINAL [facility] Whole Blood [facility]. [address] [place] [address] CLIA#[id number] 08/15 CBC w/ auto diff IG % % 0.0 0.5 0.20 FINAL [facility] Whole Blood [facility]. [address] [place] [address] CLIA#[id number] 08/15 CBC w/ auto diff Jimi # (ANC) 10^3/u L 1.5 6.5 1.9 FINAL [facility] Whole Blood [facility]. [address] [place] [address] CLIA#[id number] 08/15 CBC w/ auto diff LY # 10^3/u L 1.2 3.4 1.4 [facility] Whole Blood [facility]. [address] [place] [address] CLIA#[id number] 08/15 CBC w/ auto diff MO # 10^3/u L 0.0 0.8 0.7 FINAL [facility] Whole Blood [facility]. [address] [place] [address] CLIA#[id number] 08/15 CBC w/ auto diff EO # 10^3/u L 0.0 0.3 0.0 FINAL [facility] Whole Blood [facility]. [address] [place] [address] CLIA#[id number] 08/15 CBC w/ auto diff BA # 10^3/u L 0.0 0.2 0.03 FINAL [facility] Whole Blood [facility]. [address] [place] [address] CLIA#[id number] 08/15 CBC w/ auto diff IG # 10^3/u L 0.0 0.03 0.01 FINAL [facility] Whole Blood [facility]. [address] [place] [address] CLIA#[id number] 08/15 CBC w/ auto diff NRBC, absol match-e-be-[place], x 10^3/ uL 0.0 0.01 0.00 FINAL [facility] Whole Blood [place] [address] CLIA#[id number] 08/15 CBC w/ auto diff NRBC, % 0.0 0.2 0.00 FINAL [facility] Whole Blood [place] [address] CLIA#[id number] Medications Date Name Route Dose Frequency Instructions [...] 08/15/2022 Pain Scale 0.00 Notes Section * [employer] [place] [address] ??P:?? PATIENT:??KALEIGH WILL :??1965 Date of Service:??08/15/2022 [...] then recurred again in the vaginal cuff [id number] and biopsy showed grade 2 c/w endometrial primary. She underwent EBRT and VBT completed 07/27.?? She has been in remission since that time.?? She reports genetic testing negative. PDL1 reportedly positive.?? The patient was requested to see me for further evaluation and management. Medical History endometrial cancer Surgical History ? Surgical History* robotic hyst/bso/SLND 2017 SMELLER History ? SMELLER History* G4 Family History ? Family History* [...] of endometrium (disorder) . Evan Adrian MD, [facility] [place] Send copy of note to: MD Reji Carter MD . Electronically signed by Evan Adrian MD, [facility] 08/15/2022 14:08 CDT
--- OUTSIDE RECORDS SUMMARY | 2024-09-27 00:16 | XMS_ITS | CCD ---
Author Name Interface, [id number] lity Address [place] [address] [facility] Address [place] [address] Care Team Providers Care Site Physician Name Role Phone Evan Adrian Unavailable Unavailable Reason for Visit Encounters Medications Problems Social History
--- OUTSIDE RECORDS SUMMARY | 2024-09-27 00:16 | XMS_ITS ---
Author Name Interface, N0Olwvuln lity Address [place] [address] Organization [facility] Address [place] breakthroughs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 [address] [place] [address]. [place] 08/15 CMP BUN mg/dL 7.0 18.0 12 [facility]. [address] [place] [address]. [place] 08/15 CMP Creat inine , mg/dL mg/dL 0.55 1.3 0.83 FINAL [facility]. [address] [place] [address]. [place] 08/15 CMP GFR estim ate ml/min /1.73m 2 83 Result based on the eGFR 2020 calculati on.60-89 mL/min/1. 73m^2 without kidney damage may be normal.60 -89 mL/min/1. 73m^2 for 3 months or more, along with kidney damage, mayindica te early kidney disease.C ginao n modified to the 2020 formula effective 07/08/22. FINAL [facility]. [address] [place] [address]. [place] 08/15 CMP BUN/C reati nine ratio 6.0 25.0 14.46 [facility]. [address] [place] [address]. [place] 08/15 CMP Sodiu m mmol/L 136.0 145.0 141 FINAL [facility]. [address] [place] [address]. [place] 08/15 CMP Potas sium mmol/L 3.5 5.1 4.2 FINAL [facility]. [address] [place] [address]. [place] 08/15 CMP Chlor ben mmol/L 97.0 107.0 103 FINAL [facility]. [address] [place] [address]. [place] 08/15 CMP CO2 mmol/L 21.0 32.0 29 FINAL [facility]. [address] [place] [address]. [place] 08/15 CMP Calci um mg/dL 8.5 10.1 8.7 [facility]. [address] [place] [address]. [place] 08/15 CMP Total prote in g/dL 6.4 8.2 7.7 [facility]. [address] [place] [address]. [place] 08/15 CMP Album in g/dL 3.4 5.0 3.4 [facility]. [address] [place] [address]. [place] 08/15 CMP Globu shiela g/dL 2.2 4.2 4.3 High [facility]. [address] [place] [address]. [place] 08/15 CMP A/G ratio 0.8 2.0 0.8 FINAL [facility] Plasma [facility]. [address] [place] [address]. [place] 08/15 CMP Bilir ubin, total mg/dL 0.2 1.0 0.30 FINAL [facility] Plasma [facility]. [address] [place] [address]. [place] 08/15 CMP Alkal ine phosp hatas e U/L 46.0 116.0 69 FINAL [facility] Plasma [facility]. [address] [place] [address]. [place] 08/15 CMP AST/S GOT U/L 15.0 37.0 23 FINAL [facility] Plasma [facility]. [address] [place] [address]. [place] 08/15 CMP ALT/S GPT U/L 14.0 59.0 34 FINAL [facility] Plasma [facility]. [address] [place] [address]. [place] 08/15 CA 125 panel CA 125, Sieme ns ICMA UNITS/ ML 2.0 30.2 12.1 CA 125 values from different assay methods can not be used interchan geably. is assay was performed using the NetEffectass ay system. FINAL [facility] Serum [facility]. [address] [place] [address]. [place] 08/15 CBC w/ auto diff WBC 10^3/u L 4.8 10.8 4.1 Low FINAL [facility] Whole Blood [facility]. [address] [place] [address] CLIA#[id number] 08/15 CBC w/ auto diff RBC 10^6/u L 4.2 5.4 4.13 Low FINAL [facility] Whole Blood [facility]. [address] [place] [address] CLIA#[id number] 08/15 CBC w/ auto diff HGB g/dL 12.0 16.0 13.2 FINAL [facility] Whole Blood [facility]. [address] [place] [address] CLIA#[id number] 08/15 CBC w/ auto diff HCT % 37.0 47.0 39.6 FINAL [place] Whole Blood [facility]. [address] [place] [address] CLIA#[id number] 08/15 CBC w/ auto diff MCV fL 81.0 99.0 95.90 FINAL [facility] Whole Blood [facility]. [address] [place] [address] CLIA#[id number] 08/15 CBC w/ auto diff MCH pg 27.0 31.0 32.00 High FINAL [facility] [place] Whole Blood [facility]. [address] [place] [address] CLIA#[id number] 08/15 CBC w/ auto diff MCHC g/dL 33.0 37.0 33.30 FINAL [facility] Whole Blood [facility]. [address] [place] [address] CLIA#[id number] 08/15 CBC w/ auto diff RDW % 10.5 14.5 14.40 FINAL [facility] Whole Blood [facility]. [address] [place] [address] CLIA#[id number] 08/15 CBC w/ auto diff PLT 10^3/u L 130.0 400.0 244 FINAL [facility] Whole Blood [facility]. [address] [place] [address] CLIA#[id number] 08/15 CBC w/ auto diff MPV fL 9.4 12.3 8.3 Low FINAL [place] Whole Blood [facility]. [address] [place] [address] CLIA#[id number] 08/15 CBC w/ auto diff Jimi % % 40.0 77.0 47.3 FINAL [place] Whole Blood [facility]. [address] [place] [address] CLIA#[id number] 08/15 CBC w/ auto diff LY % % 15.0 41.0 34.6 FINAL [place] Whole Blood [facility]. [address] [place] [address] CLIA#[id number] 08/15 CBC w/ auto diff MO % % 3.0 11.0 17.2 High [address] Whole Blood [facility]. [address] [place] [address] CLIA#[id number] 08/15 CBC w/ auto diff EO % % 0.0 3.0 0.0 FINAL [facility] Whole Blood [facility]. [address] [place] [address] CLIA#[id number] 08/15 CBC w/ auto diff BA % % 0.0 1.0 0.70 FINAL [facility] Whole Blood [facility]. [address] [place] [address] CLIA#[id number] 08/15 CBC w/ auto diff IG % % 0.0 0.5 0.20 FINAL [facility] Whole Blood [facility]. [address] [place] [address] CLIA#[id number] 08/15 CBC w/ auto diff Jimi # (ANC) 10^3/u L 1.5 6.5 1.9 FINAL [facility] Whole Blood [facility]. [address] [place] [address] CLIA#[id number] 08/15 CBC w/ auto diff LY # 10^3/u L 1.2 3.4 1.4 [facility] Whole Blood [facility]. [address] [place] [address] CLIA#[id number] 08/15 CBC w/ auto diff MO # 10^3/u L 0.0 0.8 0.7 FINAL [facility] Whole Blood [facility]. [address] [place] [address] CLIA#[id number] 08/15 CBC w/ auto diff EO # 10^3/u L 0.0 0.3 0.0 FINAL [facility] Whole Blood [facility]. [address] [place] [address] CLIA#[id number] 08/15 CBC w/ auto diff BA # 10^3/u L 0.0 0.2 0.03 FINAL [facility] Whole Blood [facility]. [address] [place] [address] CLIA#[id number] 08/15 CBC w/ auto diff IG # 10^3/u L 0.0 0.03 0.01 FINAL [facility] Whole Blood [facility]. 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 PATIENT:??KALEIGH WILL :??1965 Date of Service:??08/15/2022 [...] then recurred again in the vaginal cuff [id number] and biopsy showed grade 2 c/w endometrial primary. She underwent EBRT and VBT completed 07/27.?? She has been in remission since that time.?? She reports genetic testing negative. PDL1 reportedly positive.?? The patient was requested to see me for further evaluation and management. Medical History endometrial cancer Surgical History ? Surgical History* robotic hyst/bso/SLND 2017 DIRECTOR STAFFING History ? DIRECTOR STAFFING History* G4 Family History ? Family History* [...] of endometrium (disorder) . Evan Adrian MD, [facility] [place] Send copy of note to: MD Reji Carter MD . Electronically signed by Evan Adrian MD, [facility] 08/15/2022 14:08 CDT
== END 2024-09-26 10:41 | disposition home or self-care (01) ==
PROVIDERS: PCP Family Medicine; Visit Provider Family Medicine
DX: R16.0 Hepatomegaly, not elsewhere classified (principal); I81 Portal vein thrombosis; N20.0 Calculus of kidney
CPT/HCPCS: 74170; Q9967

== ENCOUNTER 2025-01-20 13:22 | Emergency (ER) | payer BC, SELFPAY ==
--- OUTSIDE RECORDS SUMMARY | 2024-12-16 13:20 | XMS_ITS | Encounter Summary ---
Author Organization [facility] Address [address] [place] [address] Care Team Providers Care Legislators Name Role Phone Elsewhere, Pcp Primary Care Provider Unavailabl e Reason for Visit * Episode Based Medications (Routine) - Authorized Specialty Diagnoses / Procedures Referred By Contac t Referred To Contact Diagnoses Other Retirement Current Drug Therapy Melanoma Skin (HCC) Procedures OR NIVOLUMAB INJ OR IPILIMUMAB INJ 1 MG Yossi Cabrera M.D., Ph.D. [address] [place] [phone] Phone: tel: fax: Department of Oncology in [place], [place] [address] [place] [phone] Phone: tel: Referral ID Status Reason Start Date Expiration Date V isits Requested Visits Authorized [id number] Authorized 10/29/2024 01/29/2026 99 99 Encounter Details Date Type Department Care Team (Latest Contact Info) Description 12/16/2024 1:20 PM CDT - 12/16/2024 11:59 PM CDT Hospital Encounter Department of Laboratory Medicine in [address] [phone] Yossi Cabrera M.D., Ph.D. [address] [place] [phone] Other Retirement Current Drug Therapy; Melanoma Skin (HCC) Discharge Disposition: Home or Self Care Social History Tobacco Use Types Packs/Day Years Used Date Smoking Tobacco: Never Passive Smoke Exposure: Never Smokeless Tobacco: Never Alcohol Use Standard Drinks/Week Comments Yes 1 (1 standard drink = 0.6 oz pur e alcohol) 1 glass wine per month [facility] Utilities Answer Date Recorded In the past 12 months has e electric, gas, oil, or water company threatened to shut off services in your home? No 09/30/2024 Hunger Vital Sign Answer Date Recorded Within the past 12 months, y ou worried that your food would run out before you got the money to buy more. Never true 10/01/19 25 Within the past 12 months, t he food you bought just didn't last and you didn't have money to get more. Never true 09/30/2024 PRAPARE - Transportation Answer Date Re corded In the past 12 months, has l ack of transportation kept you from medical appointments or from getting medications? No 09/08 In the past 12 months, has l ack of transportation kept you from meetings, work, or from getting things needed for daily living? No 09/30/2024 Housing Stability Answer Date Recorded What is your living situation today? [facility] 09/30/2024 Comments No Sex and Gender Information Value Date Recorded Sex Assigned at Female 09/30/2024 9:25 AM CDT Legal Sex Female 12:05 PM CDT Gender Identity Female 09/30/2024 9:25 AM CDT Sexual Orientation Straight 09/30/2024 9: 25 AM CDT documented as of this encounter Medications at Time of Discharge acetaminophen (TylenoL) 500 mg tablet Take 1,000 mg by mouth every 6 (six) hours. ALPRAZolam (Xanax) 0.5 mg tablet Take 1 tablet by mouth every 12 (twelve) hours as needed for anxiety. 09/26/2024 apixaban (Eliquis) 5 mg tablet Take 1 tablet (5 mg total) by mouth 2 (two) times a day. 180 tablet 3 10/09/2024 chlorpheniramine maleate (CHLOR-TRIMETON ORAL) Take by mouth. citalopram (CeleXA) 40 mg tablet Take 1 tablet by mouth daily. 11/07/2024 estradioL (Estrace) 0.1 mg/g (0.01%) vaginal cream Insert 2 g into the vagina every 7 (seven) days. Has not started yet 09/11/2024 hydrOXYzine (Atarax) 25 mg tablet Take 1 tablet by mouth every 8 (eight) hours as needed for anxiety. 11/07/2024 multivitamin tablet Take 1 tablet by mouth daily. triamcinolone (Kenalog) 0.1 % cream Apply 1 Application topically 2 (two) times a day. Apply thin layer to areas of rash. 454 g 12/10/2024 documented as of this encounter Plan of Treatment Upcoming Encounters Date Type Department Care Team (Latest Contact Info) Description 01/23/2025 12:15 PM CDT Clinical Communication Virtual Review in [address] [phone] 01/23/2025 2:15 PM CDT Appointment Department of Radiology, [address] [phone] Yossi Cabrera M.D., Ph.D. [address] [place] [phone] 01/26/2025 11:15 AM CDT Appointment Department of Radiology, [address] [phone] Yossi Cabrera M.D., Ph.D. [address] [place] [phone] 01/26/2025 12:40 PM CDT Lab Department of Laboratory Medicine and Pathology, [address] [phone] Yossi Cabrera M.D., Ph.D. [address] [place] [phone] 01/27/2025 1:40 PM CDT Office Visit Department of Oncology in [address] [phone] Sara Rowan P.A.-C., M.S. [address] [place] [phone] 01/27/2025 2:30 PM CDT Infusion Department of Oncology in [place], [place] [address] [place] [phone] Yossi Cabrera M.D., Ph.D. 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 [address] [place] [phone] documented as of this encounter Procedures Procedure Name Priority Date/Time Associated Diagnosis Comments AURA ONCOEXTRA-GERMLINE Routine 12/16/2024 2:18 PM CDT Melanoma Skin (HCC) THYROID FUNCTION CASCADE, S Routine 12/16/2024 2:18 PM CDT Other Cigar Head Piercer Current Drug Therapy Melanoma Skin (HCC) CBC WITH DIFFERENTIAL, B Routine 12/16/2024 2:18 PM CDT Other Cigar Head Piercer Current Drug Therapy Melanoma Skin (HCC) COMPREHENSIVE METABOLIC PANEL, S/P Routine 12/16/2024 2:18 PM CDT Other Retirement Current Drug Therapy Melanoma Skin (HCC) documented in this encounter Results * Aura Exact OncoExTra-[place] - Sent Out Lab (12/16/2024 2:18 PM CDT) Aura OncoExtra-Lazaro mline Collected, Sent to Reference Lab DEFAULT 12/17/2024 7:28 AM CDT AURA Blood (Blood, Peripheral Draw) 12/16/2024 2:18 PM CDT 12/17/2024 7:28 AM CDT Yossi Cabrera M.D., Ph.D. LAB GENETIC TESTING Final Result [facility] AURA REFERRALS [address] [place] [address], [place] AURA [address] [place] [address] * Thyroid Function Mcgrann (12/16/2024 2:18 PM CDT) TSH, Sensitive 2.6 0.3 - 4.2 mIU/L 12/16/2024 3:51 PM CDT CNFL Blood (Blood, Venous) 12/16/2024 2:18 PM CDT 12/16/2024 2:21 PM CDT Yossi Cabrera M.D., Ph.D. LAB BLOOD ADD-ON Fin al Result [facility] [address] [place] [phone], [place] CNFL [facility] in [address] [address] * (ABNORMAL) Comprehensive Metabolic Panel (12/16/2024 2:18 PM CDT) Potassium, P 3.9 3.6 - 5.2 mmol/L 12/16/2024 2:41 PM CDT CNFL Sodium, P 133(L) 135 - 145 mmol/L 12/16/2024 2:41 PM CDT CNFL Chloride, P 101 98 - 107 mmol/L 12/16/2024 2:41 PM CDT CNFL Bicarbonate, P 25 22 - 29 mmol/L 12/16/2024 2:41 PM CDT CNFL Anion Gap, P 7 7 - 15 12/16/2024 2:41 PM CDT CNFL BUN (Blood Urea Nitrogen), P 7 6 - 21 mg/dL 12/16/2024 2:41 PM CDT CNFL Creatinine 0.58(L) 0.59 - 1.04 mg/dL 12/16/2024 2:41 PM CDT CNFL Estimated GFR (eGFR) >90 >=60 mL/min/BS A 12/16/2024 2:41 PM CDT CNFL Comment: Estimated GFR calculated using the 2020 CKD_EPI creatinine equation. Calcium, Total, P 8.8 8.6 - 10.0 mg/dL 12/16/2024 2:41 PM CDT CNFL Glucose, P 97 70 - 140 mg/dL 12/16/2024 2:41 PM CDT CNFL Protein, Total, P 6.9 6.3 - 7.9 g/dL 12/16/2024 2:41 PM CDT CNFL Albumin, P 3.1(L) 3.5 - 5.0 g/dL 12/16/2024 2:41 PM CDT CNFL Aspartate Aminotransferase (AST), P 22 8 - 43 U/L 12/16/2024 2:41 PM CDT CNFL Alkaline Phosphatase, P 227(H) 35 - 104 U/L 12/16/2024 2:41 PM CDT CNFL Alanine Aminotransferase (ALT), P 27 7 - 45 U/L 12/16/2024 2:41 PM CDT CNFL Bilirubin, Total, P 0.3 0.0 - 1.2 mg/dL 12/16/2024 2:41 PM CDT CNFL Blood (Blood, Venous) 12/16/2024 2:18 PM CDT 12/16/2024 2:21 PM CDT us Yossi Cabrera M.D., Ph.D. LAB BLOOD ADD-ON Fin al Result [facility] [address] [place], [place] [id number], [facility] CNFL [facility] [place] [address] * (ABNORMAL) CBC with Differential, Blood (12/16/2024 2:18 PM CDT) Hemoglobin 9.5(L) 11.6 - 15.0 g/dL 12/16/2024 2:29 PM CDT CNFL Hematocrit 29.1(L) 35.5 - 44.9 % 12/16/2024 2:29 PM CDT CNFL Erythrocytes 3.24(L) 3.92 - 5.13 x10(12)/L 12/16/2024 2:29 PM CDT CNFL MCV 89.8 78.2 - 97.9 fL 12/16/2024 2:29 PM CDT CNFL RBC Distrib Width 20.4(H) 12.2 - 16.1 % 12/16/2024 2:29 PM CDT CNFL Platelet Count 381(H) 157 - 371 x10(9)/L 12/16/2024 2:29 PM CDT CNFL Leukocytes 5.1 3.4 - 9.6 x10(9)/L 12/16/2024 2:29 PM CDT CNFL Neutrophils 3.06 1.56 - 6.45 x10(9)/L 12/16/2024 2:29 PM CDT CNFL Lymphocytes 1.40 0.95 - 3.07 x10(9)/L 12/16/2024 2:29 PM CDT CNFL Monocytes 0.64 0.26 - 0.81 x10(9)/L 12/16/2024 2:29 PM CDT CNFL Eosinophils <0.04 0.03 - 0.48 x10(9)/L 12/16/2024 2:29 PM CDT CNFL Basophils <0.04 0.01 - 0.08 x10(9)/L 12/16/2024 2:29 PM CDT CNFL Blood (Blood, Venous) 12/16/2024 2:18 PM CDT 12/16/2024 2:21 PM CDT us Yossi Cabrera M.D., Ph.D. LAB BLOOD ADD-ON Fin al Result [facility] [address] [place] [phone], [facility] CNFL [facility] [place] [address] documented in this encounter Visit Diagnoses Diagnosis Other Retirement Current Drug Therapy Melanoma Skin (HCC) documented in this encounter Additional Health Concerns Infection Onset Date Last Indicated Resolved Time Protective Environment 11/04/2024 11/04/2024 documented as of this encounter Care Teams Legislators Relationship Specialty Start Date End Date Elsewhere, Pcp PCP - General Internal Medicine 09/28/24 documented as of this encounter
--- OUTSIDE RECORDS SUMMARY | 2024-12-17 13:40 | XMS_ITS | Encounter Summary ---
Author Organization [facility] Address [address] [place] [address] Care Team Providers Care Wellhead Pumper Name Role Phone Elsewhere, Pcp Primary Care Provider Unavailabl e Reason for Visit * Episode Based Medications (Routine) - Authorized Specialty Diagnoses / Procedures Referred By Contac t Referred To Contact Diagnoses Other Custodial Current Drug Therapy Melanoma Skin (HCC) Procedures RI NIVOLUMAB INJ RI IPILIMUMAB INJ 1 MG Yossi Cabrera M.D., Ph.D. [address] [place] [phone] Phone: tel: fax: Department of Oncology in [place], [place] [address] [place] [phone] Phone: tel: Referral ID Status Reason Start Date Expiration Date V isits Requested Visits Authorized [id number] Authorized 10/29/2024 01/29/2026 99 99 Encounter Details Date Type Department Care Team (Late st Contact Info) Description 12/17/2024 1:40 PM CDT Office Visit Department of Oncology in [place], [place] [address] [place] [phone] Sara Rowan P.A.-C., M.S. [address] [place] [phone] Melanoma Skin (HCC) (Primary Dx); Secondary Malignant Neoplasm Brain (HCC); Secondary Malignant Neoplasm Soft Tissue (HCC); Other Body Former Current Drug Therapy; Rash; Anemia Social History Tobacco Use Types Packs/Day Years Used Date Smoking Tobacco: Never Passive Smoke Exposure: Never Smokeless Tobacco: Never Tobacco Cessation:Counseling Given: Not Answered Alcohol Use Standard Drinks/Week Comments Yes 1 (1 standard drink = 0.6 oz pur e alcohol) 1 glass wine per month [facility] Utilities Answer Date Recorded In the past 12 months has th e electric, gas, oil, or water company [...] your living situation today? [facility] 09/30/2024 Comments No Sex and Gender Information Value Date Recorded Sex Assigned at Female 09/30/2024 9:25 AM CDT Legal Sex Female 12:05 PM CDT Gender Identity Female 09/30/2024 9:25 AM CDT Sexual Orientation Straight 09/30/2024 9: 25 AM CDT documented as of this encounter Last Filed Vital Signs Vital Sign Reading Time Taken Comments Blood Pressure 110/71 12/17/2024 1:44 PM CDT Pulse 96 12/17/2024 1:44 PM CDT Temperature 36.4 C (97.5 F) 12/17/2024 1:44 PM CDT Respiratory Rate 16 12/17/2024 1:44 PM CDT Oxygen Saturation 98% 12/17/2024 1:44 PM CDT Inhaled Oxygen Concentration - - Weight 64.9 kg (143 lb 1.3 oz) 12/17/2024 1:44 P M CDT Height 158.9 cm (5' 2.56) 12/17/2024 1:44 PM CD T Body Mass Index 25.7 12/17/2024 1:44 PM CDT documented in this encounter Progress Notes * Sara Rowan P.A.-C., M.S. - 12/17/2024 1:40 PM CDT SUBJECTIVE REQUESTING PROVIDER Yossi Cabrera M.D., Ph.D. [address] [place] [phone] PRIMARY COLLABORATING PROVIDER Yossi Cabrera M.D., Ph.D. CHIEF CONCERN Kaleigh Will is a 59 y.o. female with BRAF mutated metastatic melanoma who is currently on ipilimumab and nivolumab. Presents today for clinical evaluation and lab review prior to her third infusion. HISTORY OF PRESENT ILLNESS Oncology History Oncology History Melanoma Skin (HCC) 08/07/2024 Other Patient began feeling night sweats, anorexia, fatigue. From August until mid October, she lost without trying 10 lb. 10/01/2024 Critical Imaging FDG PET scan showed hepatic and multiple musculoskeletal masses. Musculoskeletal masses included the right adductor musculature, medial right thigh, right inferior flank, and right thyroid. 10/03/2024 Clinical Stage Staging form: Melanoma Of The Skin, AJCC 8th Edition - Clinical stage from 10/03/2024: Stage IV (cT0, cN0, pM1d(1)) 10/03/2024 Biopsy/Pathology Fine-needle aspiration of mass on right flank returned with malignant melanoma. From the report: The neoplastic cells are positive for SOX10, S100, Melan A, BRAF, CD117 while negative for AE1/AE3, PAX8, TTF1, WT-1, Desmin and chromogranin. The neoplastic cells retain INI-1, and BRG. 10/14/2024 Critical Imaging MR brain with and without contrast showed 4 lesions, with the largest in the left occipital lobe at1.8 cm in diameter. 10/30/2024 Biopsy/Pathology Biopsy of liver is positive for metastatic melanoma 11/04/2024 - Chemotherapy Nivolumab 3 mg/kg / Ipilimumab 1 mg/kg ( Maintenance Cycles 480 mg every 28 days) Start Date: 11/04/2024 11/11/2024 Surgery and Procedures GK therapy to right frontal tumor, left frontal tumor x 2, left occipital, left parietal tumor, andright temporal tumor. Malignant Neoplasm Of Uterus Endometrial (HCC) 2017 Initial Diagnosis Malignant Neoplasm Of Uterus Endometrial (HCC). This was diagnosed at an outside institution in [place] after an episode of abnormal uterine bleeding. 08/2017 Surgery and Procedures Patient received total abdominal hysterectomy and bilateral oophorectomy. 04/2018 - Chemotherapy 9 months after total abdominal hysterectomy and oophorectomy, patient had a recurrence and receivedchemotherapy, believed to be carbo Taxol. Her platelets decreased significantly at the time. 06/2019 - Radiation Therapy Approximately 1 year after receiving chemotherapy, there was an additional recurrence of the patient's cancer which included on imaging a ???spot?? on her abdomen and liver. She received 30 days of pelvic radiation, followed by vaginal brachytherapy. INTERVAL HISTORY Kaleigh Will presents to clinic today accompanied by her spouse, Gato. She reports good tolerance of ipilimumab and nivolumab with the exception of a rash which started around the time she discontinued 2 mg of oral dexamethasone just over a week ago. She did message in about this concern andwas informed to take 10 mg Claritin daily, 25 mg Benadryl nightly, and use topical triamcinolone cream twice daily. She states this regimen has helped. She does note increased abdominal bloating overthe past 3 weeks, but feels palpable mass on right lateral back and right groin have decreased in size. REVIEW OF SYSTEMS A 14-point review of systems was completed and negative except as noted above in the interval history. OBJECTIVE PAST MEDICAL/SURGICAL HISTORY Medical History[1] Surgical History[2] ALLERGIES Allergies Allergen Reactions Hydrophilic Cream Rash Penicillins Rash Pollen Extracts Other (see comments) Congestion MEDICATIONS Active Home Medications Medication Sig Taking acetaminophen (TylenoL) 500 mg tablet Take 1,000 mg by mouth every 6 (six) hours. Yes ALPRAZolam (Xanax) 0.5 mg tablet Take 1 tablet by mouth every 12 (twelve) hours as needed for anxiety. Yes apixaban (Eliquis) 5 mg tablet Take 1 tablet (5 mg total) by mouth 2 (two) times a day. Yes chlorpheniramine maleate (CHLOR-TRIMETON ORAL) Take by mouth. Yes citalopram (CeleXA) 40 mg tablet Take 1 tablet by mouth daily. Yes estradioL (Estrace) 0.1 mg/g (0.01%) vaginal cream Insert 2 g into the vagina every 7 (seven) days.Has not started yet Yes hydrOXYzine (Atarax) 25 mg tablet Take 1 tablet by mouth every 8 (eight) hours as needed for anxiety. Yes multivitamin tablet Take 1 tablet by mouth daily. Yes triamcinolone (Kenalog) 0.1 % cream Apply 1 Application topically 2 (two) times a day. Apply thin layer to areas of rash. Yes SOCIAL HISTORY Kaleigh Will lives in [place], [place], with her spouse, Gato. PHYSICAL EXAMINATION ECOG performance score: 0 - asymptomatic BP 110/71 (BP Location: Right arm, Patient Position: Sitting, Cuff Size: Regular) Pulse 96 Temp36.4 ??C (Temporal) Resp 16 Ht 158.9 cm Wt 64.9 kg SpO2 98% BMI 25.70 kg/m?? General: Well-developed female sitting comfortably in clinic room. Eyes: Extraocular movements intact. ENT: Mucous membranes moist. Neck: No thyromegaly noted. Lymph Nodes: No cervical, supraclavicular, axillary, or inguinal lymphadenopathy. Cardiovascular: Regular rate and rhythm. No murmurs, rubs, or gallops. Lungs: Clear to auscultation bilaterally. No use of accessory muscles. No rales, rhonchi, or wheezes. Extremities: No edema or cyanosis. Musculoskeletal: Normal range of motion. No swollen or erythematous joints. Skin: Warm and dry. Mild rash on bilateral forearms. Neurological: Alert and oriented x 3. Psychiatry: No overt anxiety or depression. DIAGNOSTICS LABORATORY DATA Reviewed. RADIOLOGICAL DATA Reviewed. ASSESSMENT / PLAN #1 Melanoma Skin (HCC) #2 Secondary Malignant Neoplasm Brain (HCC) #3 Secondary Malignant Neoplasm Soft Tissue (HCC) #4 Other Custodial Current Drug Therapy Kaleigh Will is a 59 y.o. female with BRAF mutated metastatic melanoma who is currently on ipilimumab and nivolumab. Presents today for clinical evaluation and lab review prior to next infusion. She reports good tolerance of ipilimumab and nivolumab with the exception of a rash, which I've discussed further below. She does not increased abdominal bloating over the past 3 weeks, but feels palpable mass on right lateral back and right groin have decreased in size. Labs reveal worsening anemia, discussed below. Per clinical evaluation, ECOG status, and lab review, patient is okay to proceed with infusion today. Plan to return to clinic in 3 weeks for her fourth infusion. Imaging scheduled for 01/27/25. #5 Rash Rash started around the time she discontinued 2 mg of oral dexamethasone just over a week ago. She did message in about this concern and was informed to take 10 mg Claritin daily, 25 mg Benadryl nightly, and use topical triamcinolone cream twice daily. She states this regimen has helped. I also encouraged lukewarm baths/showers and routine moisturization with unscented cream such as Vanicream, CereVe, or Eucerin. #6 Anemia Hemoglobin has dropped from 11.9 to 9.5 over the past 3 weeks. Kaleigh denies any notable bleeding with the exception of some bleeding with blowing her nose. Denies black tarry stools or overt blood instool. Will check this in a week to ensure it does not continue to decline. If declining further, we will complete further workup to rule out occult bleed. PATIENT EDUCATION Ready to learn, no apparent learning barriers were identified; learning preferences include listening. Explained diagnosis and treatment plan; patient expressed understanding of the content. Discussed with the patient we work together as a care team of physicians, nurse practitioners/physician assistants, nurses and other bilingual patient support caseworker that specialize in this cancer. Also, reviewed the importance of maintaining ongoing care with local oncology team and primary care physician. BILLING I spent an additional 30 minutes beyond treatment clearance reviewing chart, managing above symptoms, and placing follow-up orders. [1] No past medical history on file. [2] Past Surgical History: Procedure Laterality Date APPLICATION STEREOTACTIC HEAD FRAME N/A 11/11/2024 Procedure: APPLICATION STEREOTACTIC HEAD FRAME; Surgeon: Shun Vital M.D.; Location: [facility] SECTION GAMMA KNIFE N/A 11/11/2024 Procedure: GAMMA KNIFE.; Surgeon: Shun Vital M.D.; Location: [facility] OR documented in this encounter Plan of Treatment Upcoming Encounters Date Type Department Care Team (Latest Contact Info) Description 01/23/2025 12:15 PM CDT Clinical Communication Virtual Review in [place], [place] 200 [place] [phone] 01/23/2025 2:15 PM CDT Appointment Department of Radiology, [facility] in [place], [place] [address] [place] [phone] Yossi Cabrera M.D., Ph.D. [address] [place] [phone] 01/26/2025 11:15 AM CDT Appointment Department of Radiology, [facility] in [place], [place] [address] [place] [phone] Yossi Cabrera M.D., Ph.D. [address] [place] [phone] 01/26/2025 12:40 PM CDT Lab Department of Laboratory Medicine and Pathology, [facility] in [place], [place] [address] [place] [phone] Yossi Cabrera M.D., Ph.D. [address] [place] [phone] 01/27/2025 1:40 PM CDT Office Visit Department of Oncology in [address] [phone] Sara Rowan P.A.-C., M.S. [address] [place] [phone] 01/27/2025 2:30 PM CDT Infusion Department of Oncology in [place], [place] [address] [place] [phone] Yossi Cabrera M.D., Ph.D. [address] [place] [phone] 03/16/2025 10:30 AM ZINC MINER BLASTING Office Visit Department of Oncology in [place], [place] [address] [place] [phone] Yossi Cabrera M.D., Ph.D. [address] [place] [phone] documented as of this encounter Results * (ABNORMAL) CBC with Differential, Blood (12/25/2024 12:26 PM CDT) [facility] Hemoglobin 10.3(L) 11.6 - 15.0 g/dL 12/25/2024 12:30 PM CDT CNFL Hematocrit 32.3(L) 35.5 - 44.9 % 12/25/2024 12:30 PM CDT CNFL Erythrocytes 3.54(L) 3.92 - 5.13 x10(12)/L 12/25/2024 12:30 PM CDT CNFL MCV 91.2 78.2 - 97.9 fL 12/25/2024 12:30 PM CDT CNFL RBC Distrib Width 20.1(H) 12.2 - 16.1 % 12/25/2024 12:30 PM CDT CNFL Platelet Count 352 157 - 371 x10(9)/L 12/25/2024 12:30 PM CDT CNFL Leukocytes 6.4 3.4 - 9.6 x10(9)/L 12/25/2024 12:30 PM CDT CNFL Neutrophils 3.72 1.56 - 6.45 x10(9)/L 12/25/2024 12:30 PM CDT CNFL Lymphocytes 1.72 0.95 - 3.07 x10(9)/L 12/25/2024 12:30 PM CDT CNFL Monocytes 0.90(H) 0.26 - 0.81 x10(9)/L 12/25/2024 12:30 PM CDT CNFL Eosinophils <0.04 0.03 - 0.48 x10(9)/L 12/25/2024 12:30 PM CDT CNFL Basophils 0.04 0.01 - 0.08 x10(9)/L 12/25/2024 12:30 PM CDT CNFL Blood (Blood, Venous) 12/25/2024 12:26 PM CDT 12/25/2024 12:27 PM CDT Sara Rowan P.A.-C., M.S. LAB BLOOD ADD-ON Final Result Performing Organization Address City/State/[facility] Co de Phone Number [facility] [address] [place] [phone], [facility] CNFL [facility] in [address] [address] documented in this encounter Visit Diagnoses Diagnosis Melanoma Skin (HCC)- Primary Secondary Malignant Neoplasm Brain (HCC) Secondary Malignant Neoplasm Soft Tissue (HCC) Other Body Former Current Drug Therapy Rash Anemia documented in this encounter Additional Health Concerns Infection Onset Date Last Indicated Resolved Time Protective Environment 11/04/2024 11/04/2024 documented as of this encounter Care Teams Wellhead Pumper Relationship Specialty Start Date End Date Elsewhere, Pcp PCP - General Internal Medicine 09/28/24 documented as of this encounter
--- OUTSIDE RECORDS SUMMARY | 2024-12-17 15:00 | XMS_ITS | Encounter Summary ---
Author Organization [facility] Address [address] [place] [address] Care Team Providers Care Cambering Machine Operator Name Role Phone Elsewhere, Pcp Primary Care Provider Unavailabl e Reason for Visit * Episode Based Medications (Routine) - Authorized Specialty Diagnoses / Procedures Referred By Contac t Referred To Contact Diagnoses Other Electronics Maintenance Technician Current Drug Therapy Melanoma Skin (HCC) Procedures MO NIVOLUMAB INJ MO IPILIMUMAB INJ 1 MG Yossi Cabrera M.D., Ph.D. [address] [place] [phone] Phone: tel: fax: Department of Oncology in [place], [place] [address] [place] [phone] Phone: tel: Referral ID Status Reason Start Date Expiration Date V isits Requested Visits Authorized [id number] Authorized 10/29/2024 01/29/2026 99 99 Encounter Details Date Type Department Care Team (Late st Contact Info) Description 12/17/2024 3:00 PM CDT Infusion Department of Oncology in [place], [place] [address] [place] [phone] Yossi Cabrera M.D., Ph.D. [address] [place] [address] [phone] Melanoma Skin (HCC) (Primary Dx); Other Nursing Home Current Drug Therapy Social History Tobacco Use Types Packs/Day Years Used Date Smoking Tobacco: Never Passive Smoke Exposure: Never Smokeless Tobacco: Never Alcohol Use Standard Drinks/Week Comments Yes 1 (1 standard drink = 0.6 oz pur e alcohol) 1 glass wine per month [facility] Utilities Answer Date Recorded In the [...] your living situation today? I have a [facility] place to live 09/30/2024 Comments No Sex and Gender Information Value Date Recorded Sex Assigned at Female 09/30/2024 9:25 AM CDT Legal Sex Female 12:05 PM CDT Gender Identity Female 09/30/2024 9:25 AM CDT Sexual Orientation Straight 09/30/2024 9: 25 AM CDT documented as of this encounter Plan of Treatment Upcoming Encounters Date Type Department Care Team (Latest Contact Info) Description 01/23/2025 12:15 PM CDT Clinical Communication Virtual Review in [place], [place] 200 [place] [address] 01/23/2025 2:15 PM CDT Appointment Department of Radiology, [facility] in [place], [place] [address] [place] [phone] Yossi Cabrera M.D., Ph.D. [address] [place] [phone] 01/26/2025 11:15 AM CDT Appointment Department of Radiology, [facility] in [place], [place] [address] [place] [phone] Yossi Cabrera M.D., Ph.D. [address] [place] [phone] 01/26/2025 12:40 PM CDT Lab Department of Laboratory Medicine and Pathology, [facility], in [place], [place] [address] [place] [phone] Yossi Cabrera M.D., Ph.D. [address] [place] [phone] 01/27/2025 1:40 PM CDT Office Visit Department of Oncology in [address] [phone] Sara Rowan P.A.-C., M.S. [address] [place] [phone] 01/27/2025 2:30 PM CDT Infusion Department of Oncology in [address] [phone] Yossi Cabrera M.D., Ph.D. [address] [place] [phone] 03/16/2025 10:30 AM COMPRESSOR STATIONS SUPERINTENDENT Office Visit Department of Oncology in [address] [phone] Yossi Cabrera M.D., Ph.D. [address] [place] [phone] documented as of this encounter Visit Diagnoses Diagnosis Melanoma Skin (HCC)- Primary Other Electronics Maintenance Technician Current Drug Therapy documented in this encounter Administered Medications Inactive Administered Medications - up to 3 most recent administrations Medication Order MAR Action Action Date Dose Rate Site ipilimumab 65 mg in NaCl 0.9% 71 mL IVPB (Yervoy) 65 mg (rounded from 65.4 mg = 1 mg/kg 65.4 kg Treatment plan Measured weight), intravenous, at 142 mL/hr, Administer over 30 Minutes, Once, On Sun12/17/24 at 1600, For 1 dose, Do not shake. Administer via ppv-yulvnpo-onlsxlk 0.2 or 0.22 filter. Do not co-administer other drugs through the same infusion line. Flush line with 0.9% NaCl after each dose. Do not shake. Use low protein binding filter.Indications:Other Electronics Maintenance Technician Current Drug Therapy,Melanoma Skin (HCC) New Bag 12/17/2024 4:21 PM CDT 65 mg 142 mL/hr nivolumab 200 mg in NaCl 0.9% 130 mL IVPB (Opdivo) 200 mg (rounded from 196.2 mg = 3 mg/kg 65.4 kg Treatment plan Measured weight), intravenous, at 260 mL/hr, Administer over 30 Minutes, Once, On Sun12/17/24 at 1530, For 1 dose, Do not co-administer other drugs through the same infusion line. Give via 0.2 or 0.22 micron filter. Do not shake. Use low protein binding filter.Indications:Other Nursing Home Current Drug Therapy,Melanoma Skin (HCC) New Bag 12/17/2024 3:38 PM CDT 200 mg 260 mL/hr sodium chloride 0.9 % injection 10 mL 10 mL, intravenous, As needed, line care, Starting on Sun12/17/24 at 1512, Prior to blood sampling, post blood transfusion, or post blood sampling.Indications:Melanoma Skin (HCC) Given 12/17/2024 4:16 PM CDT 20 mL documented in this encounter Additional Health Concerns Infection Onset Date Last Indicated Resolved Time Protective Environment 11/04/2024 11/04/2024 documented as of this encounter Care Teams Cambering Machine Operator Relationship Specialty Start Date End Date Elsewhere, Pcp PCP - General Internal Medicine 09/28/24 documented as of this encounter
--- OUTSIDE RECORDS SUMMARY | 2024-12-25 12:20 | XMS_ITS | Encounter Summary ---
Author Organization [facility] Address [address] [place] [address] Care Team Providers Care Lead Pastor Name Role Phone Elsewhere, Pcp Primary Care Provider Unavailabl e Encounter Details Date Type Department Care Team (Latest Contact Info) Description 12/25/2024 12:20 PM CDT - 12/25/2024 11:59 PM CDT Hospital Encounter Department of Laboratory Medicine in [address] [phone] Sara Rowan P.A.-C., M.S. 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 I have a [facility] place to live 09/30/2024 Comments No [...] PM CDT Clinical Communication Virtual Review in [place], [place] 200 [place] [address] 01/23/2025 2:15 PM CDT Appointment Department of Radiology, [facility] in [place], [place] [address] [place] [phone] Yossi Cabrera M.D., Ph.D. [address] [place] [phone] 01/26/2025 11:15 AM CDT Appointment Department of Radiology, [facility] in [place], [place] [address] [place] [phone] Yossi Cabrera M.D., Ph.D. [address] [place] [phone] 01/26/2025 12:40 PM CDT Lab Department of Laboratory Medicine and Pathology, [facility] in [address] [phone] Yossi Cabrera M.D., Ph.D. [address] [place] [phone] 01/27/2025 1:40 PM CDT Office Visit Department of Oncology in [address] [phone] Sara Rowan P.A.-C., M.S. [address] [place] [phone] 01/27/2025 2:30 PM CDT Infusion Department of Oncology in [address] [phone] Yossi Cabrera M.D., Ph.D. [address] [place] [phone] 03/16/2025 10:30 AM WELLNESS SPECIALIST Office Visit Department of Oncology in [place], [place] [address] [place] [address] Yossi Cabrera M.D., Ph.D. 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 M.S. 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
--- OUTSIDE RECORDS SUMMARY | 2025-01-05 13:45 | XMS_ITS | Encounter Summary ---
Author Organization [facility] Address [address] [place] [address] Care Team Providers Care Dining Chair Seat Cushion Trimmer Name Role Phone Elsewhere, Pcp Primary Care Provider Unavailabl e Reason for Visit * Reason Onset Date Comments Pre-visit Intake 01/05/2025 * Appointment Request (Routine) - Authorized Specialty Diagnoses / Procedures Referred By Contac t Referred To Contact Oncology Referral ID Status Reason Start Date Expiration Date V isits Requested Visits Authorized [id number] Authorized 11/03/2024 02/03/2026 1 1 Encounter Details Date Type Department Care Team (Latest Contact Info) Description 01/05/2025 1:45 PM CDT Clinical Communication Virtual Review in [place], [place] 200 [place] [address] Pre-visit Intake Social History Tobacco Use Types Packs/Day Years Used Date Smoking Tobacco: Never Passive Smoke Exposure: Never Smokeless Tobacco: Never Alcohol Use Standard Drinks/Week Comments Yes 1 (1 standard drink = 0.6 oz pur e alcohol) 1 glass wine per month [facility] Utilities Answer Date Recorded In the past 12 months has e [employer], gas, oil, or water [employer] threatened to shut off services in your [...] your living situation today? I have a [facility] place to live 09/30/2024 Comments No [...] PM CDT Clinical Communication Virtual Review in [place], [place] 200 [place] [address] 01/23/2025 2:15 PM CDT Appointment Department of Radiology, [place], [place] [address] [place] [phone] Yossi Cabrera M.D., Ph.D. [address] [place] [phone] 01/26/2025 11:15 AM CDT Appointment Department of Radiology, [facility] in [address] [phone] Yossi Cabrera M.D., Ph.D. [address] [place] [phone] 01/26/2025 12:40 PM CDT Lab Department of Laboratory Medicine and Pathology, [place], [place] [address] [place] [phone] Yossi Cabrera M.D., Ph.D. [address] [place] [phone] 01/27/2025 1:40 PM CDT Office Visit Department of Oncology in [place], [place] [address] [place] [phone] Sara Rowan P.A.-C., M.S. [address] [place] [phone] 01/27/2025 2:30 PM CDT Infusion Department of Oncology in [place], [place] [address] [place] [phone] Yossi Cabrera M.D., Ph.D. [address] [place] [phone] 03/16/2025 10:30 AM OFFSET PLATEMAKER Office Visit Department of Oncology in [place], [place] [address] [place] [phone] Yossi Cabrera M.D., Ph.D. [address] [place] [phone] documented as of this encounter Visit Diagnoses Not on filedocumented in this encounter Additional Health Concerns Infection Onset Date Last Indicated Resolved Time Protective Environment 11/04/2024 11/04/2024 documented as of this encounter Care Teams Dining Chair Seat Cushion Trimmer Relationship Specialty Start Date End Date Elsewhere, Pcp PCP - General Internal Medicine 09/28/24 documented as of this encounter
--- OUTSIDE RECORDS SUMMARY | 2025-01-06 13:18 | XMS_ITS | Encounter Summary ---
Author Organization [facility] Address [address] [place] [address] Care Team Providers Care Sample Weaver Name Role Phone Elsewhere, Pcp Primary Care Provider Unavailabl e Reason for Visit * Episode Based Medications (Routine) - Authorized Specialty Diagnoses / Procedures Referred By Contac t Referred To Contact Diagnoses Other Snf Current Drug Therapy Melanoma Skin (HCC) Procedures AR NIVOLUMAB INJ AR IPILIMUMAB INJ 1 MG Yossi Cabrera M.D., Ph.D. [address] [place] [phone] Phone: tel: fax: Department of Oncology in [place], [place] [address] [place] [phone] Phone: tel: Referral ID Status Reason Start Date Expiration Date V isits Requested Visits Authorized [id number] Authorized 10/29/2024 01/29/2026 99 99 Encounter Details Date Type Department Care Team (Latest Contact Info) Description 01/06/2025 1:18 PM CDT - 01/06/2025 11:59 PM CDT Hospital Encounter Department of Laboratory Medicine in [address] [phone] Yossi Cabrera M.D., Ph.D. [address] [place] [phone] Other Snf Current Drug Therapy; Melanoma Skin (HCC) Discharge Disposition: Home or Self Care Social History Tobacco Use Types Packs/Day Years Used Date Smoking Tobacco: Never Passive Smoke Exposure: Never Smokeless Tobacco: Never Alcohol Use Standard Drinks/Week Comments Yes 1 (1 standard drink = 0.6 oz pur e alcohol) 1 glass wine per month [facility] Utilities Answer Date Recorded In the past [...] your living situation today? I have a [facility] place to live 09/30/2024 Comments No [...] PM CDT Clinical Communication Virtual Review in [address] [phone] 01/23/2025 2:15 PM CDT Appointment Department of Radiology, [address] [phone] Yossi Cabrera M.D., Ph.D. [address] [place] [phone] 01/26/2025 11:15 AM CDT Appointment Department of Radiology, [address] [phone] Yossi Cabrera M.D., Ph.D. [address] [place] [phone] 01/26/2025 12:40 PM CDT Lab Department of Laboratory Medicine and Pathology, [address] [phone] Yossi Cabrera M.D., Ph.D. [address] [place] [phone] 01/27/2025 1:40 PM CDT Office Visit Department of Oncology in [address] [phone] Sara Rowan P.A.-C., M.S. [address] [place] [phone] 01/27/2025 2:30 PM CDT Infusion Department of Oncology in [place], [place] [address] [place] [phone] Yossi Cabrera M.D., Ph.D. [address] [place] [address] [phone] 03/16/2025 10:30 AM HOME SALES SERVICE PROFESSIONAL Office Visit Department of Oncology in [place], [place] [address] [place] [phone] Yossi Cabrera M.D., Ph.D. [address] [place] [address] [phone] documented as of this encounter Procedures Procedure Name Priority Date/Time Associated Diagnosis Comments THYROID FUNCTION CASCADE, S Routine 01/06/2025 1:25 PM CDT Other Snf Current Drug Therapy Melanoma Skin (HCC) CBC WITH DIFFERENTIAL, B Routine 01/06/2025 1:25 PM CDT Other Snf Current Drug Therapy Melanoma Skin (HCC) COMPREHENSIVE METABOLIC PANEL, S/P Routine 01/06/2025 1:25 PM CDT Other Television Actor Current Drug Therapy Melanoma Skin (HCC) documented in this encounter Results * Thyroid Function [place] (01/06/2025 1:25 PM CDT) TSH, Sensitive 3.2 0.3 - 4.2 mIU/L 01/06/2025 2:36 PM CDT CNFL Blood (Blood, Venous) 01/06/2025 1:25 PM CDT 01/06/2025 1:27 PM CDT us Yossi Cabrera M.D., Ph.D. LAB BLOOD ADD-ON Fin al Result [facility] [address] [place] [address], [facility] CNFL [facility] in [address] [address] * (ABNORMAL) Comprehensive Metabolic Panel (01/06/2025 1:25 PM CDT) Potassium, P 4.6 3.6 - 5.2 mmol/L 01/06/2025 8:05 PM CDT [facility] Sodium, P 135 135 - 145 mmol/L 01/06/2025 8:05 PM CDT [facility] Chloride, P 97(L) 98 - 107 mmol/L 01/06/2025 8:05 PM CDT [facility] Bicarbonate, P 25 22 - 29 mmol/L 01/06/2025 8:06 PM CDT [facility] Anion Gap, P 13 7 - 15 01/06/2025 8:05 PM CDT [facility] BUN (Blood Urea Nitrogen), P 9 6 - 21 mg/dL 01/06/2025 8:06 PM CDT [facility] Creatinine 0.58(L) 0.59 - 1.04 mg/dL 01/06/2025 8:06 PM CDT [facility] Estimated GFR (eGFR) >90 >=60 mL/min/BS A 01/06/2025 8:06 PM CDT [facility] Comment: Estimated GFR calculated using the 2020 CKD_EPI creatinine equation. Calcium, Total, P 9.0 8.6 - 10.0 mg/dL 01/06/2025 8:06 PM CDT [facility] Glucose, P 94 70 - 140 mg/dL 01/06/2025 8:06 PM CDT [facility] Protein, Total, P 7.3 6.3 - 7.9 g/dL 01/06/2025 8:06 PM CDT [facility] Albumin, P 3.3(L) 3.5 - 5.0 g/dL 01/06/2025 8:06 PM CDT [facility] Aspartate Aminotransferase (AST), P 26 8 - 43 U/L 01/06/2025 8:06 PM CDT [facility] Alkaline Phosphatase, P 155(H) 35 - 104 U/L 01/06/2025 8:06 PM CDT [facility] Alanine Aminotransferase (ALT), P 12 7 - 45 U/L 01/06/2025 8:06 PM CDT [facility] Bilirubin, Total, P 0.3 0.0 - 1.2 mg/dL 01/06/2025 8:06 PM CDT [facility] Blood (Blood, Venous) 01/06/2025 1:25 PM CDT 01/06/2025 1:27 PM CDT us Yossi Cabrera M.D., Ph.D. LAB BLOOD ADD-ON Fin al Result [facility] [address] [place] [address], [facility] in [place] [address] [place] [address] * (ABNORMAL) CBC with Differential, Blood (01/06/2025 1:25 PM CDT) [facility] Hemoglobin 10.6(L) 11.6 - 15.0 g/dL 01/06/2025 1:30 PM CDT CNFL Hematocrit 32.7(L) 35.5 - 44.9 % 01/06/2025 1:30 PM CDT CNFL Erythrocytes 3.64(L) 3.92 - 5.13 x10(12)/L 01/06/2025 1:30 PM CDT CNFL MCV 89.8 78.2 - 97.9 fL 01/06/2025 1:30 PM CDT CNFL RBC Distrib Width 18.8(H) 12.2 - 16.1 % 01/06/2025 1:30 PM CDT CNFL Platelet Count 325 157 - 371 x10(9)/L 01/06/2025 1:30 PM CDT CNFL Leukocytes 5.8 3.4 - 9.6 x10(9)/L 01/06/2025 1:30 PM CDT CNFL Neutrophils 3.28 1.56 - 6.45 x10(9)/L 01/06/2025 1:30 PM CDT CNFL Lymphocytes 1.70 0.95 - 3.07 x10(9)/L 01/06/2025 1:30 PM CDT CNFL Monocytes 0.75 0.26 - 0.81 x10(9)/L 01/06/2025 1:30 PM CDT CNFL Eosinophils <0.04 0.03 - 0.48 x10(9)/L 01/06/2025 1:30 PM CDT CNFL Basophils 0.05 0.01 - 0.08 x10(9)/L 01/06/2025 1:30 PM CDT CNFL Blood (Blood, Venous) 01/06/2025 1:25 PM CDT 01/06/2025 1:27 PM CDT Yossi Cabrera M.D., Ph.D. LAB BLOOD ADD-ON Fin al Result Performing Organization Address City/State/[facility] Co de Phone Number [facility] [address] [place] [phone], [facility] CNFL [facility] in [address] [address] documented in this encounter Visit Diagnoses Diagnosis Other Snf Current Drug Therapy Melanoma Skin (HCC) documented in this encounter Additional Health Concerns Infection Onset Date Last Indicated Resolved Time Protective Environment 11/04/2024 11/04/2024 documented as of this encounter Care Teams Sample Weaver Relationship Specialty Start Date End Date Elsewhere, Pcp PCP - General Internal Medicine 09/28/24 documented as of this encounter
--- OUTSIDE RECORDS SUMMARY | 2025-01-07 13:00 | XMS_ITS | Encounter Summary ---
Author Organization [facility] Address [address] [place] [address] Care Team Providers Care Biochemist Name Role Phone Elsewhere, Pcp Primary Care Provider Unavailabl e Reason for Visit * Episode Based Medications (Routine) - Authorized Specialty Diagnoses / Procedures Referred By Contac t Referred To Contact Diagnoses Other Retirement Current Drug Therapy Melanoma Skin (HCC) Procedures WY NIVOLUMAB INJ WY IPILIMUMAB INJ 1 MG Yossi Cabrera M.D., Ph.D. [address] [place] [phone] Phone: tel: fax: Department of Oncology in [place], [place] [address] [place] [phone] Phone: tel: Referral ID Status Reason Start Date Expiration Date V isits Requested Visits Authorized [id number] Authorized 10/29/2024 01/29/2026 99 99 Encounter Details Date Type Department Care Team (Late st Contact Info) Description 01/07/2025 1:00 PM CDT Office Visit Department of Oncology in [place], [place] [address] [place] [phone] Sara Rowan P.A.-C., M.S. [address] [place] [phone] Melanoma Skin (HCC) (Primary Dx); Secondary Malignant Neoplasm Brain (HCC); Secondary Malignant Neoplasm Soft Tissue (HCC); Other Roller Maker Current Drug Therapy; Myalgia Social History Tobacco Use Types Packs/Day Years Used Date Smoking Tobacco: Never Passive Smoke Exposure: Never Smokeless Tobacco: Never Alcohol Use Standard Drinks/Week Comments Yes 1 (1 standard drink = 0.6 oz pur e alcohol) 1 glass wine per month [facility] Utilities Answer Date Recorded In the past [...] your living situation today? [facility] 09/30/2024 Comments No Sex and Gender Information Value Date Recorded Sex Assigned at Female 09/30/2024 9:25 AM CDT Legal Sex Female 12:05 PM CDT Gender Identity Female 09/30/2024 9:25 AM CDT Sexual Orientation Straight 09/30/2024 9: 25 AM CDT documented as of this encounter Last Filed Vital Signs Vital Sign Reading Time Taken Comments Blood Pressure 126/78 01/07/2025 1:01 PM CDT Pulse 78 01/07/2025 1:01 PM CDT Temperature 36.5 C (97.7 F) 01/07/2025 1:01 PM CDT Respiratory Rate 17 01/07/2025 1:01 PM CDT Oxygen Saturation 99% 01/07/2025 1:01 PM CDT Inhaled Oxygen Concentration - - Weight 63.5 kg (139 lb 15.9 oz) 01/07/2025 1:01 PM CDT Height 158.7 cm (5' 2.48) 01/07/2025 1:01 PM CD T Body Mass Index 25.21 01/07/2025 1:01 PM CDT documented in this encounter Progress Notes * Montane, Sara N, P.A.-C., M.S. - 01/07/2025 1:00 PM CDT SUBJECTIVE REQUESTING PROVIDER Yossi Cabrera M.D., Ph.D. [address] [place] [phone] PRIMARY COLLABORATING PROVIDER Yossi Cabrera M.D., Ph.D. CHIEF CONCERN Kaleigh Will is a 59 y.o. female with BRAF mutated metastatic melanoma who is currently on ipilimumab and nivolumab. Presents today for clinical evaluation and lab review prior to her fourth infusion. HISTORY OF PRESENT ILLNESS Oncology History [...] was diagnosed at an outside institution in [place] after an episode of abnormal uterine bleeding. [...] She reports good tolerance of ipilimumab and nivolumab. Right sided pain and rash have improved since her previous visit.She feels the metastatic sites on her right lateral abdomen and right epigastric area are flattening, but becoming more firm. She feels the metastatic site on her left medial thigh has decreased in size. Lastly, she notes a new pea-sized lump in her left lateral abdomen. She also states she's had some pain in her legs and thighs when sitting for >1 hour. REVIEW OF SYSTEMS A 14-point review of [...] mg by mouth every 6 (six) hours. Patient taking differently: Take 1,000 mg by mouth as needed for moderate pain or score 4-6 of 10 (headache). ALPRAZolam (Xanax) 0.5 mg tablet Take 1 tablet by mouth every 12 (twelve) hours as needed for anxiety. Patient taking differently: Take 1 tablet by mouth every 12 (twelve) hours as needed for anxiety (mri). apixaban (Eliquis) 5 mg tablet Take 1 tablet (5 mg total) by mouth 2 (two) times a day. chlorpheniramine maleate (CHLOR-TRIMETON ORAL) Take by mouth. Patient taking differently: Take by mouth as needed. citalopram (CeleXA) 40 mg tablet Take 1 tablet by mouth daily. estradioL (Estrace) 0.1 mg/g (0.01%) vaginal cream Insert 2 g into the vagina every 7 (seven) days.Has not started yet Patient taking differently: Insert 2 g into the vagina as needed. Has not started yet hydrOXYzine (Atarax) 25 mg tablet Take 1 tablet by mouth every 8 (eight) hours as needed for anxiety. Patient not taking: Reported on 01/05/2025 multivitamin tablet Take 1 tablet by mouth daily. triamcinolone (Kenalog) 0.1 % cream Apply 1 Application topically 2 (two) times a day. Apply thin layer to areas of rash. Patient taking differently: Apply 1 Application topically as needed for rash. Apply thin layer to areas of rash. SOCIAL HISTORY Kaleigh Will lives in [place], [place], with her spouse, Gato. PHYSICAL EXAMINATION ECOG performance score: 0 - asymptomatic BP 126/78 (BP Location: Left arm, Patient Position: Sitting, Cuff Size: Regular) Pulse 78 Temp 36.5 ??C (Temporal) Resp 17 Ht 158.7 cm Wt 63.5 kg SpO2 99% BMI 25.21 kg/m?? General: Well-developed female sitting comfortably in clinic room. Eyes: Extraocular movements intact. ENT: Mucous membranes moist. Neck: No thyromegaly noted. Lymph Nodes: No lymphadenopathy. Cardiovascular: Regular rate and rhythm. No murmurs, rubs, or gallops. Lungs: Clear to auscultation bilaterally. No use of accessory muscles. No rales, rhonchi, or wheezes. Extremities: No edema or cyanosis. Musculoskeletal: SQ nodules in right lateral abdomen, left thigh, and left lateral abdomen are palpable. Skin: Warm and dry. Mild rash on bilateral forearms. Neurological: Alert and oriented x 3. Psychiatry: No overt anxiety or depression. DIAGNOSTICS LABORATORY DATA Reviewed. RADIOLOGICAL DATA Reviewed. 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 female with BRAF mutated metastatic melanoma who is currently on ipilimumab and nivolumab. Presents today for clinical evaluation and lab review prior to next infusion. She reports good tolerance of ipilimumab and nivolumab. Right sided pain and rash have improved since her previous visit. She feels the metastatic sites on her right lateral abdomen and right epigastric area are flattening, but becoming more firm. She feels the metastatic site on her left medial thigh has decreased in size. Lastly, she notes a new pea-sized lump in her left lateral abdomen. These are all palpable on physical exam. Labs reveal improving anemia, but are otherwise unremarkable. Per clinical evaluation, ECOG status, and lab review, patient is okay to proceed with infusion today. Plan to return to clinic in 3 weeks at which time we will review imaging prior to transition to nivolumab monotherapy. #5 Myalgia Kaleigh notes she's struggling with thigh and leg pain when sitting >1 hour. Given this, I have ordered a CK to be drawn in the infusion unit to rule out myositis. PATIENT EDUCATION Ready to learn, no apparent learning barriers were identified; learning preferences include listening. Explained diagnosis and treatment plan; patient expressed understanding of the content. Discussed with the patient we work together as a care team of physicians, nurse practitioners/physician assistants, nurses and other application support engineer that specialize in this cancer. Also, reviewed the importance of maintaining ongoing care with local oncology team and primary care physician. BILLING I spent an additional 29 minutes beyond treatment clearance reviewing chart, managing above symptoms, and placing follow-up orders. [1] No past medical history on file. [2] Past Surgical History: Procedure Laterality Date APPLICATION STEREOTACTIC HEAD FRAME N/A 11/11/2024 Procedure: APPLICATION STEREOTACTIC HEAD FRAME; Surgeon: Shun Vital M.D.; Location: [facility] SECTION GAMMA KNIFE N/A 11/11/2024 Procedure: GAMMA KNIFE.; Surgeon: Shun Vital M.D.; Location: [facility] OR documented in this encounter Plan of Treatment Upcoming Encounters Date Type Department Care Team (Latest Contact Info) Description 01/23/2025 12:15 PM CDT Clinical Communication Virtual Review in [place], [place] 200 [place] [phone] 01/23/2025 2:15 PM CDT Appointment Department of Radiology, [facility], in [place], [place] [address] [place] [address] Yossi Cabrera M.D., Ph.D. [address] [place] [phone] 01/26/2025 11:15 AM CDT Appointment Department of Radiology, [facility] in [place], [place] [address] [place] [phone] Yossi Cabrera M.D., Ph.D. [address] [place] [phone] 01/26/2025 12:40 PM CDT Lab Department of Laboratory Medicine and Pathology, [facility] in [place], [place] [address] [place] [phone] Yossi Cabrera M.D., Ph.D. [address] [place] [phone] 01/27/2025 1:40 PM CDT Office Visit Department of Oncology in [address] [phone] Sara Rowan P.A.-C., M.S. [address] [place] [phone] 01/27/2025 2:30 PM CDT Infusion Department of Oncology in [address] [phone] Yossi Cabrera M.D., Ph.D. [address] [place] [phone] 03/16/2025 10:30 AM LEAN MANUFACTURING LEADER Office Visit Department of Oncology in [address] [phone] Yossi Cabrera M.D., Ph.D. 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
--- OUTSIDE RECORDS SUMMARY | 2025-01-07 14:00 | XMS_ITS | Encounter Summary ---
Author Organization [facility] Address [address] [place] [address] Care Team Providers Care Loan Examiner Name Role Phone Elsewhere, Pcp Primary Care Provider Unavailabl e Reason for Visit * Episode Based Medications (Routine) - Authorized Specialty Diagnoses / Procedures Referred By Contac t Referred To Contact Diagnoses Other Chcf Current Drug Therapy Melanoma Skin (HCC) Procedures ME NIVOLUMAB INJ ME IPILIMUMAB INJ 1 MG Yossi Cabrera M.D., Ph.D. [address] [place] [phone] Phone: tel: fax: Department of Oncology in [place], [place] [address] [place] [phone] Phone: tel: Referral ID Status Reason Start Date Expiration Date V isits Requested Visits Authorized [id number] Authorized 10/29/2024 01/29/2026 99 99 Encounter Details Date Type Department Care Team (Late st Contact Info) Description 01/07/2025 2:00 PM CDT Infusion Department of Oncology in [place], [place] [address] [place] [phone] Yossi Cabrera M.D., Ph.D. [address] [place] [phone] Melanoma Skin (HCC) (Primary Dx); Other Chcf Current Drug Therapy Social History Tobacco Use Types Packs/Day Years Used Date Smoking Tobacco: Never Passive Smoke Exposure: Never Smokeless Tobacco: Never Alcohol Use Standard Drinks/Week Comments Yes 1 (1 standard drink = 0.6 oz pur e alcohol) 1 glass wine per month [facility] Utilities Answer Date Recorded In the [...] your living situation today? I have a [facility] place to live 09/30/2024 Comments [...] PM CDT Clinical Communication Virtual Review in [place], [place] 200 [place] [address] 01/23/2025 2:15 PM CDT Appointment Department of Radiology, [facility] in [place], [place] [address] [place] [phone] Yossi Cabrera M.D., Ph.D. [address] [place] [phone] 01/26/2025 11:15 AM CDT Appointment Department of Radiology, [facility] in [place], [place] [address] [place] [phone] Yossi Cabrera M.D., Ph.D. [address] [place] [phone] 01/26/2025 12:40 PM CDT Lab Department of Laboratory Medicine and Pathology, [facility], in [place], [place] [address] [place] [phone] Yossi Cabrera M.D., Ph.D. [address] [place] [phone] 01/27/2025 1:40 PM CDT Office Visit Department of Oncology in [address] [phone] Sara Rowan P.A.-C., M.S. [address] [place] [phone] 01/27/2025 2:30 PM CDT Infusion Department of Oncology in [address] [phone] Yossi Cabrera M.D., Ph.D. [address] [place] [phone] 03/16/2025 10:30 AM RECOIL SPRING WINDER Office Visit Department of Oncology in [address] [phone] Yossi Cabrera M.D., Ph.D. [address] [place] [phone] documented as of this encounter Visit Diagnoses Diagnosis Melanoma Skin (HCC)- Primary Other Shortage Worker Current Drug Therapy documented in this encounter Administered Medications Inactive Administered Medications - up to 3 most recent administrations Medication Order MAR Action Action Date Dose Rate Site ipilimumab 65 mg in NaCl 0.9% 71 mL IVPB (Yervoy) 65 mg (rounded from 65.4 mg = 1 mg/kg 65.4 kg Treatment plan Measured weight), intravenous, at 142 mL/hr, Administer over 30 Minutes, Once, On Sun01/07/25 at 1445, For 1 dose, Do not shake. Administer via gpw-iperuao-zznaewi 0.2 or 0.22 filter. Do not co-administer other drugs through the same infusion line. Flush line with 0.9% NaCl after each dose. Do not shake. Use low protein binding filter.Indications:Other Chcf Current Drug Therapy,Melanoma Skin (HCC) New Bag 01/07/2025 3:07 PM CDT 65 mg 142 mL/hr nivolumab 200 mg in NaCl 0.9% 130 mL IVPB (Opdivo) 200 mg (rounded from 196.2 mg = 3 mg/kg 65.4 kg Treatment plan Measured weight), intravenous, at 260 mL/hr, Administer over 30 Minutes, Once, On Sun01/07/25 at 1415, For 1 dose, Do not co-administer other drugs through the same infusion line. Give via 0.2 or 0.22 micron filter. Do not shake. Use low protein binding filter.Indications:Other Chcf Current Drug Therapy,Melanoma Skin (HCC) New Bag 01/07/2025 2:31 PM CDT 200 mg 260 mL/hr sodium chloride 0.9 % injection 10 mL 10 mL, intravenous, As needed, line care, Starting on Sun01/07/25 at 1350, Prior to blood sampling, post blood transfusion, or post blood sampling.Indications:Melanoma Skin (HCC) Given 01/07/2025 3:32 PM CDT 20 mL Given 01/07/2025 3:00 PM CDT 20 mL documented in this encounter Additional Health Concerns Infection Onset Date Last Indicated Resolved Time Protective Environment 11/04/2024 11/04/2024 documented as of this encounter Care Teams Loan Examiner Relationship Specialty Start Date End Date Elsewhere, Pcp PCP - General Internal Medicine 09/28/24 documented as of this encounter
--- OUTSIDE RECORDS SUMMARY | 2025-01-12 14:00 | XMS_ITS | Encounter Summary ---
Author Organization [facility] Address [address] [place] [address] Care Team Providers Care Director Of Outreach Name Role Phone Elsewhere, Pcp Primary Care Provider Unavailabl e Reason for Referral * Outpatient (Routine) - Authorized Specialty Diagnoses / Procedures Referred By Contac t Referred To Contact Oncology Diagnoses Melanoma Skin (HCC) Yossi Cabrera M.D., Ph.D. [address] [place] [phone] Phone: tel: fax: [facility] Referral ID Status Reason Start Date Expiration Date V isits Requested Visits Authorized [id number] Authorized 01/12/2025 07/14/2026 1 1 Scheduling Instructions Please change to a 60 minute visit, thanks! Reason for Visit * Outpatient (Routine) - Closed Specialty Diagnoses / Procedures Referred By Contac t Referred To Contact Oncology Diagnoses Melanoma Skin (HCC) Yossi Cabrera M.D., Ph.D. [address] [place] [phone] Phone: tel: fax: [facility] Referral ID Status Reason Start Date Expiration Date Visits Re quested Visits Authorized [id number] Closed 12/01/2024 06/02/2026 1 1 Encounter Details Date Type Department Care Team (Late st Contact Info) Description 01/12/2025 2:00 PM CDT Telemedicine Department of Oncology in [place], [place] [address] [place] [phone] Yossi Cabrera M.D., Ph.D. [address] [place] [phone] Claire Leger M.S., CASEYN, LD [address] [place] [phone] Melanoma Skin (HCC) (Primary Dx) Social History Tobacco Use Types Packs/Day Years Used Date Smoking Tobacco: Never Passive Smoke Exposure: Never Smokeless Tobacco: Never Alcohol Use Standard Drinks/Week Comments Not Currently 1 (1 standard drink = 0.6 oz pur e alcohol) 1 glass wine per month [facility] Utilities Answer Date Recorded In the past 12 months has e [employer], gas, oil, or water company threatened to [...] your living situation today? I have a [facility] place to live 09/30/2024 Comments No Sex and Gender Information Value Date Recorded Sex Assigned at Female 09/30/2024 9:25 AM CDT Legal Sex Female 12:05 PM CDT Gender Identity Female 09/30/2024 9:25 AM CDT Sexual Orientation Straight 09/30/2024 9: 25 AM CDT documented as of this encounter Progress Notes * Claire Leger M.S., RDN, LD - 01/12/2025 2:00 PM CDT CHIEF COMPLAINT/REASON FOR VISIT Ms. Kaleigh Will was referred for medical nutrition therapy: Melanoma Skin (HCC). She is currently on ipilimumab and nivolumab therapy. Referring provider: Yossi Cabrera M.D., Ph.D. Met with patient for an individual visit. Consult conducted via real-time audio/video technology byClaire Leger M.S., RDN, LD in [facility] to the patient in her home. Follow-up visit. Start time: 2:03 pm End time: 2:30 pm Today's visit lasted 27 minutes. ASSESSMENT Nutrition Focused Physical Findings Appetite: decreased from baseline Mouth/Esophagus/Throat: dysgeusia, foods are described as bland, she finds spicier to be more appealing Nausea/Vomiting: no concerns Bowels: constipation; she has purchased Metamucil fiber gummies recently, she plans to utilize in the afternoon or evening. Hydration: fair Food/Nutrition Related History Diet Experience: She is not following any specific diet restrictions or modifications at this time but she has been trying to eat more fruits and vegetables. She shares grocery shopping responsibilities, she does the majority of the cooking at home. She has been using One Bars Current intake: Breakfast: apple cinnamon oatmeal with added flaxseed (made with milk) or raisin bran cereal Lunch: scrambled egg sandwich or tuna sandwich on sprouted wheat bread with added lettuce PM snack: cashews, almonds, walnuts, apple, banana, craisins Dinner: two vegetables (corn, sweet potatoes, broccoli, cauliflower), meat (chicken, pork tenderloin, ground beef/turkey) hamburger, tacos with lettuce/tomato/cheese, sloppy jg's, salmon HS snack: chocolate or ice cream Beverage/fluid intake: She primarily drinks water, estimates about 50 oz. Occasional milk or lemonade or pomegranate juice. Physical activity: She uses a treadmill, rebounder, stationary bike intermittently. She also enjoyswalking outside. Weight History Patient Weight: 01/07/25 : 63.5 kg 12/17/24 : 64.9 kg 11/26/24 : 63.3 kg 11/11/24 : 62.2 kg 11/10/24 : 63.3 kg 11/04/24 : 64.5 kg BMI Readings from Last 1 Encounters: 01/07/25 25.21 kg/m?? Weight history: She has lost about 20 lbs following her cancer diagnosis, she shares that her weight has stabilized now. Estimation of Nutritional Needs Calories: 1540 kcal (HB+20%) Protein: 76 grams/day (1.2 g/kg) NUTRITION DIAGNOSIS Predicted suboptimal energy intake related to cancer diagnosis/treatment as evidenced by potential for side effects to adversely affect her ability to maintain weight and nutritional status throughout treatment. Nutrition Prescription/Recommendation Regular meals and snacks with adequate calories, protein and fiber. INTERVENTION Counseling: We reviewed strategies to increase protein and fiber intake. I answered questions aboutexercise. MONITORING AND EVALUATION: Nutrition parameter to monitor: food intake Desired Outcome: optimize Patient Goal(s): 1. Strive to include high protein foods with each meal/snack. 2. Choose high fiber foods, such as adding flax or carlos alberto seeds or oatmeal, adding beans/lentils to dishes, etc. Follow-up: 1-2 months documented in this encounter Plan of Treatment Upcoming Encounters Date Type Department Care Team (Latest Contact Info) Description 01/23/2025 12:15 PM CDT Clinical Communication Virtual Review in [address] [phone] 01/23/2025 2:15 PM CDT Appointment Department of Radiology, [facility] in [address] [phone] Yossi Cabrera M.D., Ph.D. [address] [place] [phone] 01/26/2025 11:15 AM CDT Appointment Department of Radiology, [facility] in [address] [phone] Yossi Cabrera M.D., Ph.D. [address] [place] [phone] 01/26/2025 12:40 PM CDT Lab Department of Laboratory Medicine and Pathology, [facility], in [place], [place] [address] [place] [phone] Yossi Cabrera M.D., Ph.D. [address] [place] [phone] 01/27/2025 1:40 PM CDT Office Visit Department of Oncology in [place], [place] [address] [place] [phone] Sara Rowan P.A.-C., M.S. [address] [place] [phone] 01/27/2025 2:30 PM CDT Infusion Department of Oncology in [place], [place] [address] [place] [phone] Yossi Cabrera M.D., Ph.D. [address] [place] [phone] 03/16/2025 10:30 AM CONVERSION WORKER Office Visit Department of Oncology in [place], [place] [address] [place] [phone] Yossi Cabrera M.D., Ph.D. [address] [place] [phone] Scheduled Referrals Name Type Priority Associated Diagnoses Orde r Schedule Oncology office visit (clinic) Outpatient Referral Routine Melanoma Skin (HCC) Expected: 03/14/2025, Expires: 04/14/2026 documented as of this encounter Visit Diagnoses Diagnosis Melanoma Skin (HCC)- Primary documented in this encounter Additional Health Concerns Infection Onset Date Last Indicated Resolved Time Protective Environment 11/04/2024 11/04/2024 documented as of this encounter Care Teams Director Of Outreach Relationship Specialty Start Date End Date Elsewhere, Pcp PCP - General Internal Medicine 09/28/24 documented as of this encounter
[2025-01-20 13:26] VITALS: BP 125/81; PULSE 79; RESP 16; TEMP 37.3; O2SAT 99; BMI 24.6
--- NOTE | 2025-01-20 13:51 | CT_ITS ---
Patient: ZACK DIGGS Facility:?[facility] RIS Patient ID:?[id number] Site Patient ID:?[id number]. Site :?1965 Study:?CT-Head Angio W/ 95CC [id number]/14/2025 3:07:13 PM Ordering Physician:Liz Membreno Final Report: DATE: 01/20/2025 CLINICAL HISTORY: Patient with imbalance. TECHNIQUE: Standard helical CT image acquisition through the head and neck was performed after intravenous contrast bolus enhancement. 2D and 3D MIP images for post- processing were performed and interpreted on an independent workstation and 3D images were permanently archived. COMPARISON: CT same day. FINDINGS: There are faintly enhancing lesions in the right frontal and left temporal lobes, as well as the left cerebellar hemisphere. The origins of the great vessels from the aortic arch are patent. The origin of the right vertebral artery is patent. The origin of the left vertebral artery is patent. The common carotid arteries are patent There is no stenosis at the origin of the right internal carotid artery. There is no stenosis at the origin of the left internal carotid artery. The rest of the cervical segments of the internal carotid arteries are patent up to their intracranial segments. The intracranial segments of the internal carotid arteries are patent. The right vertebral artery is dominant. The cervical segments of the vertebral arteries are patent. The intracranial segments of the vertebral arteries are patent. The middle cerebral arteries are normal without aneurysm or proximal occlusion identified. The anterior cerebral arteries are normal without aneurysm or proximal occlusion identified. The anterior communicating artery is well visualized and appears normal. The basilar artery is normal without aneurysm or occlusion. The posterior cerebral arteries are normal without aneurysm or proximal occlusion. There is normal opacification of major intracranial venous structures. The visualized lung apices demonstrate a 5mm left upper lobe lung nodule. The thyroid gland demonstrates a 1.5cm hypodense lesion in its right lobe. The soft tissues of the neck are unremarkable. There are degenerative changes in the cervical spine. IMPRESSION: 1. Patent cervical and proximal intracranial vasculature. 2. Faintly enhancing lesions in the right frontal and left temporal lobes, as well as the left cerebellar hemisphere are concerning for metastasis. Further evaluation with a brain MRI with contrast is recommended. 3. Indeterminate 5mm left upper lobe lung nodule. Further evaluation with dedicated chest CT is recommended. 4. 1.5cm hypodense right thyroid lesion. Further evaluation with ultrasound is recommended. Please note that all CT scans at this facility use dose modulation, iterative reconstruction, and/or weight-based dosing when appropriate to reduce radiation dose to as low as reasonably achievable. Dictated by Debra Ghotra MD @ 01/20/2025 10:49:23 PM Signed by:?Debra Ghotra MD @01/20/2025 10:49:23 PM (Electronic Signature)
--- NOTE | 2025-01-20 13:51 | CT_ITS ---
Patient: ZACK DIGGS Facility:?[facility] RIS Patient ID:?[id number] Site Patient ID:?[id number]. Site :?1965 Study:?CT-Neck Angio W/ 95CC [id number]/14/2025 3:07:20 PM Ordering Physician:Liz Membreno Final Report: DATE: 01/20/2025 CLINICAL HISTORY: Patient with imbalance. TECHNIQUE: Standard helical CT image acquisition through the head and neck was performed after intravenous contrast bolus enhancement. 2D and 3D MIP images for post- processing were performed and interpreted on an independent workstation and 3D images were permanently archived. COMPARISON: CT same day. FINDINGS: There are faintly enhancing lesions in the right frontal and left temporal lobes, as well as the left cerebellar hemisphere. The origins of the great vessels from the aortic arch are patent. The origin of the right vertebral artery is patent. The origin of the left vertebral artery is patent. The common carotid arteries are patent There is no stenosis at the origin of the right internal carotid artery. There is no stenosis at the origin of the left internal carotid artery. The rest of the cervical segments of the internal carotid arteries are patent up to their intracranial segments. The intracranial segments of the internal carotid arteries are patent. The right vertebral artery is dominant. The cervical segments of the vertebral arteries are patent. The intracranial segments of the vertebral arteries are patent. The middle cerebral arteries are normal without aneurysm or proximal occlusion identified. The anterior cerebral arteries are normal without aneurysm or proximal occlusion identified. The anterior communicating artery is well visualized and appears normal. The basilar artery is normal without aneurysm or occlusion. The posterior cerebral arteries are normal without aneurysm or proximal occlusion. There is normal opacification of major intracranial venous structures. The visualized lung apices demonstrate a 5mm left upper lobe lung nodule. The thyroid gland demonstrates a 1.5cm hypodense lesion in its right lobe. The soft tissues of the neck are unremarkable. There are degenerative changes in the cervical spine. IMPRESSION: 1. Patent cervical and proximal intracranial vasculature. 2. Faintly enhancing lesions in the right frontal and left temporal lobes, as well as the left cerebellar hemisphere are concerning for metastasis. Further evaluation with a brain MRI with contrast is recommended. 3. Indeterminate 5mm left upper lobe lung nodule. Further evaluation with dedicated chest CT is recommended. 4. 1.5cm hypodense right thyroid lesion. Further evaluation with ultrasound is recommended. Please note that all CT scans at this facility use dose modulation, iterative reconstruction, and/or weight-based dosing when appropriate to reduce radiation dose to as low as reasonably achievable. Dictated by Debra Ghotra MD @ 01/20/2025 10:48:46 PM Signed by:?Debra Ghotra MD @01/20/2025 10:48:46 PM (Electronic Signature)
--- NOTE | 2025-01-20 13:51 | CRLHL7_ITS ---
For Patients: As a result of the Century Cures Act, medical imaging exams and procedure reports are released immediately into your electronic medical record. You may view this report before your referring provider. If you have questions, please contact your health care provider. INDICATION: Loss of balance. History of gamma knife radiation TECHNIQUE: CT of the head without contrast. Coronal and sagittal reformats. Bone and soft tissue algorithms. COMPARISON: No prior studies available for comparison at this institution. FINDINGS: There is moderate vasogenic edema in the right superior middle frontal gyrus with hyperdense 1.5 cm lesion of the right superior frontal lobe. Additional region of vasogenic edema is noted in the left occipital lobe likely caused by a 1.3 cm cystic lesion in the medial left occipital lobe. There are 10 mm and 9 mm hyperdensities in the left medial temporal lobe without adjacent edema (series 4, image 12 in 19). There is a 7 mm hyperdensity in the left medial cerebellum (series 4, image 15). There is partial effacement of the frontal horn of the right lateral ventricle. No mass effect or midline shift. Mild generalized parenchymal volume loss. Moderate regions of decreased attenuation within the periventricular and subcortical white matter of both cerebral hemispheres most likely reflect chronic microvascular ischemic disease and age related change in this patient. Vascular calcifications within the carotid siphons. Orbital contents are normal. No calvarial fractures. No lytic or sclerotic osseous lesions within the calvarium or skull base. Scalp and other imaged soft tissue structures are normal. Mastoid air cells are clear. Rightward deviation of the nasal septum with septal spurring. IMPRESSION: 1. No evidence of acute ischemia. 2. There is moderate vasogenic edema in the right superior middle frontal gyrus with hyperdense 1.5 cm lesion of the right superior frontal lobe. Additional region of vasogenic edema is noted in the left occipital lobe likely caused by a 1.3 cm cystic lesion in the medial left occipital lobe. There are 10 mm and 9 mm hyperdensities in the left medial temporal lobe without adjacent edema. There is a 7 mm hyperdensity in the left medial cerebellum. Findings concerning for metastatic lesions. Please note that all CT scans at this facility use dose modulation, iterative reconstruction, and/or weight-based dosing when appropriate to reduce radiation dose to as low as reasonably achievable. Dictated by Kana Madrid MD @ 01/20/2025 3:25:15 PM (Electronically Signed)
[2025-01-20 14:15] LABS: Appearance Urine Clear (Clear)
--- NOTE | 2025-01-20 14:22 | ED.GENADULT ---
HPI - General Adult General Chief complaint: Neuro Symptoms/Altered Deficit Stated complaint: R leg weakness, flashes in R eye Time Seen by Provider: 01/20/25 13:38 Source: patient Mode of arrival: ambulatory Limitations: no limitations History of Present Illness HPI narrative: 59-year-old female presenting today with right leg weakness. Patient states that for the last 4 days she has felt like she can not get dressed properly and feels off balance like her right leg is weaker than the left. Patient does have a history of melanoma with metastasis. She states that she has had brain lesions in the past and underwent gamma knife treatment. She does have repeat imaging scheduled for this week and next week. She has been getting immunotherapy as well. She denies headache or vision changes. She does have flashes in the periphery of the right eye which she has had in the past. This occurs once or twice per day. She denies any speech changes or confusion. No weakness of the upper extremities. She denies having to drag her foot, denies tripping on anything. States that she notices that she feels off-balance when she has to get up in her truck or when she has to get her pants on. Related Data Home Medications ?Medication ?Instructions ?Recorded ?Confirmed apixaban 5 mg tablet (Eliquis) 5 mg PO BID 01/20/25 01/20/25 Previous Rx's ?Medication ?Instructions ?Recorded estradiol 0.01% (0.1 mg/gram) 1 g vaginal QWEEK #42.5 grams 09/11/24 vaginal cream alprazolam 0.5 mg tablet (Xanax) 0.5 mg PO BID PRN anxiety #60 tabs 09/26/24 hydroxyzine HCl 25 mg tablet 25 mg PO TID PRN anxiety #30 tabs 11/07/24 citalopram 40 mg tablet 40 mg PO DAILY #30 tabs 12/30/24 dexamethasone 1 mg tablet 1 mg PO .As prescribed #36 tabs 01/20/25 Allergies Allergy/AdvReac Type Severity Reaction Status Date / Time Penicillins Allergy Mild Rash Verified 01/20/25 13:32 Review of Systems Status of ROS: Reports: 10 or more systems reviewed and unremarkable except as noted in History and below [facility] Medical History Endometrial cancer ?C54.1 - Malignant neoplasm of endometrium (ICD-10) Surgical History History of ?Z98.891 - History of uterine scar from previous surgery (ICD-10) H/O: hysterectomy ?Z90.710 - Acquired absence of both cervix and uterus (ICD-10) Family History Father Parkinson disease Heart disease Mother Colon cancer Brother Lymphoma Exam Narrative: Exam Narrative: Well-nourished well-developed patient in no acute distress. Alert and oriented. Answers questions appropriately. Mood and affect are appropriate. Thoughts are goal oriented and rational. No tangential or magical thinking noted. Patient speaks in full sentences without needing to catch her breath. HEENT: Normocephalic atraumatic. Pupils are equally round reactive to light. Extraocular muscles are intact. Conjunctivae are moist without any icterus noted. Moist mucous membranes. Cardiovascular: Heart is regular rate and rhythm S1 and S2 are present without any murmurs. Lungs: Clear to auscultation bilaterally no wheezes rhonchi or rales are appreciated. Patient takes deep breaths without any discomfort. Abdomen: Soft and nontender nondistended with normal bowel sounds. Extremities: Bilateral lower extremities are without edema. Normal DP and PT pulses. Skin: Well perfused without any obvious rashes. Strength is 5/5 of the upper and lower extremities. Reflexes are 2+ and symmetric at the knees. Romberg sign is negative. Cranial nerves 3-12 are normal. There is no nystagmus either horizontally or vertically. Gait is normal. Patient has a hard time balancing on both the right and the left leg when the other 1 is raised. Const: Vital Signs, click to edit/add: Vital Signs - 24 hr 01/20/25 13:26 01/20/25 15:48 Temperature 99.1 F Pulse Rate 79 Pulse Rate [Left P ulse Oximeter] 79 Respiratory Rate 16 16 Blood Pressure 142/73 H Blood Pressure [Ri ght Upper Arm] 125/81 Pulse Oximetry 99 100 Oxygen Delivery Me thod Room Air Room Air Course Course ED Course: Patient presenting with concerns about right-sided weakness however strength is symmetric on examination. She does seem quite off balance however. Therefore we will proceed with a stroke workup. EKG, read by me, shows normal sinus rhythm with a pulse of 80. She has normal QRS, QTC and RI intervals. CBC unremarkable. Lactate is normal. UA is unremarkable. Chemistries show a slightly low sodium at 133, otherwise unremarkable. Alkaline phosphatase slightly elevated at 167. Normal troponin. CRP slightly elevated at 1.[address] shows scattered moderate vasogenic edema. CTA head and neck preliminary reads do not show any vascular abnormalities. Unclear if this is new or not. Therefore I did speak to with the oncology team at [facility] where patient gets her care. I spoke to Dr. Sanchez who recommends dexamethasone therapy after we discussed her CT scan results. It appears that the vasogenic edema is around the locations of known disease. Oncology team [facility] [place] will reach out to the patient and follow-up. Vital Signs Vital signs: Initial Vital Signs Temperature 99.1 F 01/20/25 13:26 Temperature Source Temporal Artery Scan 01/20/25 13:26 Pulse Rate 79 01/20/25 13:26 Respiratory Rate 16 01/20/25 13:26 Blood Pressure 125/81 01/20/25 13:26 Blood Pressure Mean 95 01/20/25 13:26 Blood Pressure Position Sitting 01/20/25 13:26 Pulse Oximetry 99 01/20/25 13:26 Oxygen Delivery Method Room Air 01/20/25 13:26 Vital Signs Temperature 99.1 F 01/20/25 13:26 Pulse Rate 79 01/20/25 13:26 Respiratory Rate 16 01/20/25 13:26 Blood Pressure 125/81 01/20/25 13:26 Pulse Oximetry 99 01/20/25 13:26 Oxygen Delivery Method Room Air 01/20/25 13:26 Temperature 99.1 F 01/20/25 13:26 Pulse Rate 79 01/20/25 15:48 Respiratory Rate 16 01/20/25 15:48 Blood Pressure 142/73 H 01/20/25 15:48 Pulse Oximetry 100 01/20/25 15:48 Oxygen Delivery Method Room Air 01/20/25 15:48 Medical Decision Making MDM Narrative Medical decision making narrative: 59-year-old female with metastatic cancer. Presenting with balance issues and vasogenic edema of known lesions of her brain. Will treat with a dexamethasone taper. Patient will follow-up with her oncology team. Lab Data Lab results reviewed: Yes I reviewed the patient's lab results Labs: Lab Results 01/20/25 01/20/25 Range/Units 14:05 14:42 WBC 6.68 (4.50-11.00) K/uL RBC 4.02 (4.00-5.20) m/uL Hgb 11.5 L (12.0-16.0) gm/dL Hct 36.3 (33.0-51.0) % MCV 90 (80-100) fL MCH 29 (26-34) pg MCHC 32 (32-36) gm/dL RDW Coeff of Jacque 17.9 H (11.5-15.5) % Plt Count 353 (140-440) K/uL Neut % (Auto) 63.1 (42.0-72.0) % Lymph % (Auto) 25.0 (20-44) % [place] % (Auto) 11.1 H (0.0-11.0) % Eos % (Auto) 0.1 (0.0-7.0) % Baso % (Auto) 0.6 (0.0-3.0) % Neut # (Auto) 4.21 (1.7-7.0) K/uL Lymph # (Auto) 1.67 (0.90-2.90) K/uL [place] # (Auto) 0.70 (0.00-0.90) K/UL Eos # (Auto) 0.01 (0.00-0.50) K/uL Baso # (Auto) 0.04 (0.00-0.30) K/uL Abs Immat Gran (auto) 0.01 (0.00-0.30) K/uL Imm/Tot Granulo (auto) 0.1 % Sodium 133 L (135-149) mmol/L Potassium 4.0 (3.6-5.1) mmol/L Chloride 101 (96-114) mmol/L Carbon Dioxide 28 (20-32) mmol/L Anion Gap 4 L (7-15) mEq/L BUN 10 (7-30) mg/dL Creatinine 0.6 (0.5-1.5) mg/dL Estimated Creat Clear 84.54 Estimated GFR 104 ml/min Glucose 106 (60-115) mg/dL Lactate 1.6 (0.5-1.9) mmol/L Calcium 9.4 (8.4-10.6) mg/dL Magnesium 2.2 (1.5-2.6) mg/dL Total Bilirubin 0.4 (0.1-1.5) mg/dL Direct Bilirubin 0.2 (0.0-0.5) mg/dL AST 29 (12-35) U/L ALT 17 (4-35) U/L Alkaline Phosphatase 167 H (40-150) U/L Troponin I < 0.01 (0.01-0.04) ng/mL C-Reactive Protein 1.7 H (0.5-1.0) mg/dL Total Protein 8.3 (6.0-8.3) g/dL Albumin 4.0 (3.3-5.0) g/dL Urine Color Yellow (Yellow) Urine Appearance Clear (Clear) Urine pH 7.0 (5.0-8.5) Ur Specific [place] 1.010 (1.000-1.030) Urine Protein Negative (Negative) Urine Glucose (UA) Negative (Negative) Urine Ketones Negative (Negative) Urine Blood Trace-intact A (Negative) Urine Nitrite Negative (Negative) Urine Bilirubin Negative (Negative) Urine Urobilinogen 0.2 (0.2-1.0) Ur Leukocyte Esterase Negative (Negative) Urine RBC 0-2 (0-2) Urine WBC 0-2 (0-5) Ur Squamous Epith Cells Few (None-Few) Urine Bacteria None (None) Imaging Data CT scan - head: Attestation: I have reviewed the pertinent imaging results. Radiologist's impression: TECHNIQUE: CT of the head without contrast. Coronal and sagittal reformats. Bone and soft tissue algorithms. COMPARISON: No prior studies available for comparison at this institution. FINDINGS: There is moderate vasogenic edema in the right superior middle frontal gyrus with hyperdense 1.5 cm lesion of the right superior frontal lobe. Additional region of vasogenic edema is noted in the left occipital lobe likely caused by a 1.3 cm cystic lesion in the medial left occipital lobe. There are 10 mm and 9 mm hyperdensities in the left medial temporal lobe without adjacent edema (series 4, image 12 in 19). There is a 7 mm hyperdensity in the left medial cerebellum (series 4, image 15). There is partial effacement of the frontal horn of the right lateral ventricle. No mass effect or midline shift. Mild generalized parenchymal volume loss. Moderate regions of decreased attenuation within the periventricular and subcortical white matter of both cerebral hemispheres most likely reflect chronic microvascular ischemic disease and age related change in this patient. Vascular calcifications within the carotid siphons. Orbital contents are normal. No calvarial fractures. No lytic or sclerotic osseous lesions within the calvarium or skull base. Scalp and other imaged soft tissue structures are normal. Mastoid air cells are clear. Rightward deviation of the nasal septum with septal spurring. IMPRESSION: 1. No evidence of acute ischemia. 2. There is moderate vasogenic edema in the right superior middle frontal gyrus with hyperdense 1.5 cm lesion of the right superior frontal lobe. Additional region of vasogenic edema is noted in the left occipital lobe likely caused by a 1.3 cm cystic lesion in the medial left occipital lobe. There are 10 mm and 9 mm hyperdensities in the left medial temporal lobe without adjacent edema. There is a 7 mm hyperdensity in the left medial cerebellum. Findings concerning for metastatic lesions. ECG Data Attestation: I personally reviewed and interpreted this ECG as follows: Discharge Plan Discharge Clinical Impression: Balance disorder, Vasogenic brain edema, Metastasis Patient Disposition: Home, Self-Care Condition: Stable Additional Instructions: Start steroid therapy as prescribed. Your oncology team should be reaching out to you in the next couple days to schedule a follow-up appointment. If you do not hear from them, recommend you call them to schedule an appointment. The steroid taper will be prescribed for the next 12 days, but it may need to be longer so make sure you follow-up before your steroid taper is done. Prescriptions: New dexamethasone 1 mg tablet 1 mg PO .As prescribed Qty: 36 0RF Rx Instructions: Take 4 tablets daily for 4 days, then take 3 tablets daily for 4 days, then take 2 tablets daily for 4 days. No Action estradiol 0.01 % (0.1 mg/gram) cream 1 g vaginal QWEEK Qty: 42.5 12RF Eliquis 5 mg tablet 5 mg PO BID alprazolam [Xanax] 0.5 mg tablet 0.5 mg PO BID PRN (Reason: anxiety) Qty: 60 0RF hydroxyzine HCl 25 mg tablet 25 mg PO TID PRN (Reason: anxiety) Qty: 30 1RF citalopram 40 mg tablet 40 mg PO DAILY Qty: 30 2RF Follow Up/Referrals: Aide Castillo MD [Primary Care Provider, Family Practice] Stand Alone Forms: [employer] Info Instructions
--- OUTSIDE RECORDS SUMMARY | 2025-01-20 14:55 | XMS_ITS | Clinical Summary ---
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 1 Bottle 0 2 Active multivitamin (MVI) tablet Take 1 tablet by mouth once daily. 0 2 Active omega-3 fatty acids-vitamin E (FISH OIL) 1,000 mg Cap Take 2 capsules by mouth once daily. 0 2 Active cholecalciferol (VITAMIN D) 1,000 unit tablet Take 1 tablet by mouth once daily. 0 2 Active vitamin B complex (VITAMIN B COMPLEX) tablet Take 1 tablet by mouth once daily. 0 2 Active Calcium carbonate (OYSTERSHELL CALCIUM) 500 mg tablet Take 2 tablets by mouth once daily. 0 2 Active Active Problems Problem Noted Date Diagnosed Date History of breast augmentation 05/16/2011 Resolved Problems Problem Noted Date Diagnosed Date Resolved Date Breast cancer screening 05/16/201110/2011 Immunizations Immunization Administration Dates Next Due Tdap 05/16/2011 Family History Medical History Relation Name Comments Cancer Brother 4 Good Health Brother 5 Good Health Brother 6 Psychiatric illness Father Genetic Other ypraap-[id number] olon- at age 55, brother-non hodgkins lymphoma~heart dis-father Good Health Sister 2 Cancer-breast No Family History Relation Name Status Comments Brother 1 Alive Brother 2 Alive Brother 3 Alive Brother 4 Brother 5 Brother 6 Father Mother Other Sister 1 Alive Sister 2 Social History Tobacco Use Types Packs/Day Years Used Date Smoking Tobacco: Former Smokeless Tobacco: Never Alcohol Use Standard Drinks/Week Comments Yes 0 (1 standard drink = 0.6 oz pur e alcohol) occasional Comments No Sex and Gender Information Value Date Recorded Sex Assigned at Not on file Legal Sex Female 5:41 AM COUNTER HOP Gender Identity Not on file Sexual Orientation Not on file Obstetrics History Para Term AB IAB SAB Ectopic Multiple Livin g Live Births 4 0 0 0 1 0 1 0 0 3 4 Date Outcome GA Total Labor Labor//3rd Weight Sex Type Anes PTL Jessica A1 A5 Name Clin SAB Living Living Living Last Filed Vital Signs Vital Sign Reading Time Taken Comments Blood Pressure 128/78 05/16/2011 3:10 PM COUNTER HOP Pulse - - Temperature - - Respiratory Rate - - Oxygen Saturation - - Inhaled Oxygen Concentration - - Weight 57.2 kg (126 lb) 05/16/2011 3:10 PM COUNTER HOP Height 162.6 cm (5' 4) 05/16/2011 3:10 PM COUNTER HOP Body Mass Index 21.63 05/16/2011 3:10 PM COUNTER HOP Plan of Treatment Health Maintenance Due Date Last Done Comments Depression screening for age 12+ 1978 HIV for age 15-65 1981 BMI (ht and wt on same day) for age 18+ 1984 Hepatitis C screening for age 18-79 1984 Hepatitis B series for 19+ ( 1 of 3 - 19+ 3-dose series) 1985 Colonoscopy through age 75 2011 Mammogram for age 45-75 05/22/2012 05/22/2011 Pap test for age 21-65 05/16/2014 05/16/2011 Lipids for age 45-75 05/18/2016 05/18/2011 Pneumococcal series for age 50+ (1 of 1 - PCV) 017 Zoster (shingles) series for age 50+ (1 of 2) 05/26/19 17 Tetanus booster 05/16/2021 05/16/2011 COVID-19 vaccine series (2023- season) Influenza Vaccine (#1) 2024 RSV vaccine for adults or pr egnancy (1 - 1-dose 75+ series) 2041 Procedures Procedure Name Priority Date/Time Associated Diagnosis Comments XR MAMMO BILAT SCREEN FFDM W MARIA R (IA) Routine 05/22/2011 5:46 PM COUNTER HOP History of breast augmentation Breast cancer screening LIPID PANEL Routine 05/18/2011 8:00 AM COUNTER HOP Lipid screening WINDER FIXER THIN PREP PAP SCREEN IMAGED Routine 05/16/2011 4:13 PM COUNTER HOP Screening for malignant neoplasm of the cervix from Last 3 Months or Most Recently Relevant to Health Maintenance Results * XR MAMMO BILAT SCREEN FFDM W MARIA R (05/22/2011 5:46 PM COUNTER HOP) Anatomical Region Laterality Modality BREASTS, Breast Left, Breast Right Bilateral Mammography Impressions 05/24/2011 1:46 PM COUNTER HOP There is no radiographic evidence for malignancy. Recommend annual mammograms. A lay language report of this examination will be provided to the patient. MAMMOGRAM ASSESSMENT: ACR 2 Benign Narrative 05/24/2011 1:46 PM COUNTER HOP XR MAMMO BILAT SCREEN FFDM W MARIA R [G0202.5] CLINICAL HISTORY: This is an asymptomatic 45 y.o. patient. INDICATION FOR EXAM: Mammogram Screening. TECHNIQUE: CC & MLO views were obtained. This digital study was evaluated with the assistance of Computer-Aided Detection. COMPARISON FILMS: This is a baseline study. FINDINGS: Mammographically, the breast tissue is heterogeneously dense, which could obscure detection of small masses (approximately 51% - 75% glandular). No suspicious masses or microcalcifications. Implant(s) within both breasts. Procedure Note Romie Gregory MD - 05/24/2011 XR MAMMO BILAT SCREEN FFDM W MARIA R [G0202.5] CLINICAL HISTORY: This is an asymptomatic 45 y.o. patient. INDICATION FOR EXAM: Mammogram Screening. TECHNIQUE: CC & MLO views were obtained. This digital study was evaluatedwith the assistance of Computer-Aided Detection. COMPARISON FILMS: This is a baseline study. FINDINGS: Mammographically, the breast tissue is heterogeneously dense,which could obscure detection of small masses (approximately 51% - 75%glandular). No suspicious masses or microcalcifications. Implant(s)within both breasts. IMPRESSION: There is no radiographic evidence for malignancy. Recommendannual mammograms. A lay language report of this examination will be provided to the patient. MAMMOGRAM ASSESSMENT: ACR 2 Benign Sabra Mendes MD MAMMO Final Res ult * LIPID PANEL (05/18/2011 8:00 AM COUNTER HOP) [facility] CHOLESTEROL,TOTAL 191 110 - 199 mg/dL [facility] TRIGLYCERIDES 60 <150 mg/dL [facility] HDL CHOLESTEROL 85 >40 mg/dL [facility] CHOL/HDL RATIO 2.25 <4.51 [facility] LDL CHOLESTEROL 94 <131 mg/dL [facility] PATIENT STATUS Fasting [facility] Blood specimen (specimen) BLOOD SPECIMEN / Unknown 05/18/2011 8:00 AM COUNTER HOP 05/18/2011 7:53 AM COUNTER HOP Sabra Mendes MD CHEMISTRY Final Res ult Performing Organization Address City/State/[facility] Co de Phone Number [facility] [address] [place], [place] [phone] * WINDER FIXER THIN PREP PAP SCREEN IMAGED (05/16/2011 4:13 PM COUNTER HOP) CYTOLOGY CYTOPATHOLOGY REPORT [facility] Status: Final Status [id number] CLINICAL INFORMATION Last Date of LMP : Last Pap Date :2004 Last Pap Result :NIL ABN [place]/Bx Past 5 YRS :None Hormone Usage :None Menstrual Status :Irregular Periods [place]/Bx done today :No Additional Information :None given HPV Request :HPV if ASCUS SPECIMEN SOURCE :Cervical/vaginal ThinPrep Vial, screening SPECIMEN ADEQUACY :Satisfactory for evaluation Endocervical component present. INTERPRETATION/RES ULT Negative for intraepithelial lesion or malignancy (NIL) Cytology 1st Screener :wst Signed by :wst This specimen was screened by the FDA approved ThinPrep Imaging System and manually reviewed. NOTE: The Pap test is a screening technique, not a diagnostic procedure. It is used primarily to screen for squamous cancers and precursor lesions. Published studies have shown that it is subject to both false negative and false positive results. The pap test should not be used as the sole means to diagnose or exclude pre-malignant and malignant lesions. COLLECTED:05/16/11 ACCESSIONED: 05/18/11 SIGNED: 05/23/11 [facility] PAP [place] CODE NIL [facility] Tissue specimen (specimen) (Cervical/Vagina l) 05/16/2011 4:13 PM COUNTER HOP 05/16/2011 4:12 PM COUNTER HOP Sabra Mendes MD PATHOLOGY/CYTOLOGY Final Result Performing Organization Address City/State/[facility] Co de Phone Number [facility] [place] ZIP [phone] [address] from Last 3 Months or Most Recently Relevant to Health Maintenance Insurance [facility] Care Teams Felt Cutting Machine Operator Relationship Specialty Start Date End Date Unknown, Doctor . PCP - General 03/17/05August, Anahi Christianson, RN, BSN Nurse Navigator - Oncology Oncology 10/03/24
--- OUTSIDE RECORDS SUMMARY | 2025-01-20 14:55 | XMS_ITS ---
Author Name Interface, [id number] lity Address [place] [address] [facility] Address [place] [address] Support Name Relationship Address Phone Gato Will Spouse Unknown Unavailable Allergies and Adverse Reactions Medication/Group Name Reaction Severity Date Penicillins Rash 08/15/2022 Plan Date Type Value 03/14/2023 APPOINTMENT 1552 LAB MD 03/14/2023 APPOINTMENT 1552 LAB MD 02/13/2023 APPOINTMENT 1552 LAB MD 02/13/2023 APPOINTMENT 1552 LAB MD 08/15/2022 APPOINTMENT IMMIGRATION CASE MANAGER HX MALIGNANT CANCER 08/15/2022 APPOINTMENT 1552 LAB 08/15/2022 LAB_ORDER CMP 08/15/2022 LAB_ORDER CBC w/ auto diff 08/15/2022 LAB_ORDER CA 125 panel 03/14/2023 LAB_ORDER CBC w/ auto diff 03/14/2023 LAB_ORDER CMP 03/14/2023 LAB_ORDER CA 125 panel Reason for Visit 1552 [...] Gluco se mg/dL 74.0 106.0 83 FINAL [facility]. [address] [place] [address]. [place] 08/15 CMP BUN mg/dL 7.0 18.0 12 [facility]. [address] [place] [address]. [place] 08/15 CMP Creat inine , mg/dL mg/dL 0.55 1.3 0.83 [facility]. [address] [place] [address]. [place] 08/15 CMP GFR estim ate ml/min /1.73m 2 83 Result based on the eGFR 2020 calculati on.60-89 mL/min/1. 73m^2 without kidney damage may be normal.60 -89 mL/min/1. 73m^2 for 3 months or more, along with kidney damage, mayindica te early kidney disease.C emiliano n modified to the 2020 formula effective 07/08/22. FINAL [facility]. [address] [place] [address]. [place] 08/15 CMP BUN/C reati nine ratio 6.0 25.0 14.46% FINAL [facility]. [address] [place] [address]. [place] 08/15 CMP Sodiu m mmol/L 136.0 145.0 141 FINAL [facility]. [address] [place] [address]. [place] 08/15 CMP Potas sium mmol/L 3.5 5.1 4.2 FINAL [facility]. [address] [place] [address]. [place] 08/15 CMP Chlor ben mmol/L 97.0 107.0 103 FINAL [facility]. [address] [place] [address]. [place] 08/15 CMP CO2 mmol/L 21.0 32.0 29 FINAL [facility]. [address] [place] [address]. [place] 08/15 CMP Calci um mg/dL 8.5 10.1 8.7 FINAL [facility]. [address] [place] [address]. [place] 08/15 CMP Total prote in g/dL 6.4 8.2 7.7 [facility]. [address] [place] [address]. [place] 08/15 CMP Album in g/dL 3.4 5.0 3.4 FINAL [facility]. [address] [place] [address]. [place] 08/15 CMP Globu shiela g/dL 2.2 4.2 4.3 High FINAL [facility]. [address] [place] [address]. [place] 08/15 CMP A/G ratio 0.8 2.0 0.8% FINAL [facility] Plasma [facility]. [address] [place] [address]. [place] 08/15 CMP Bilir ubin, total mg/dL 0.2 1.0 0.30 FINAL [facility] Plasma [facility]. [address] [place] [address]. [place] 08/15 CMP Alkal ine phosp hatas e U/L 46.0 116.0 69 FINAL [facility] Plasma [facility]. [address] [place] [address]. [place] 08/15 CMP AST/S GOT U/L 15.0 37.0 23 FINAL [facility] Plasma [facility]. [address] [place] [address]. [place] 08/15 CMP ALT/S GPT U/L 14.0 59.0 34 FINAL [facility] Plasma [facility]. [address] [place] [address]. [place] 08/15 CA 125 panel CA 125, Sieme ns ICMA UNITS/ ML 2.0 30.2 12.1 CA 125 values from different assay methods can not be used interchan geably.Th is assay was performed using the SNOBSWAPass ay system. FINAL [facility] Serum [facility]. [address] [place] [address]. [place] 08/15 CBC w/ auto diff WBC 10^3/u L 4.8 10.8 4.1 Low FINAL [facility] Whole Blood [facility]. [address] [place] [address] CLIA#[id number] 08/15 CBC w/ auto diff RBC 10^6/u L 4.2 5.4 4.13 Low FINAL [facility] Whole Blood [facility]. [address] [place] [address] CLIA#[id number] 08/15 CBC w/ auto diff HGB g/dL 12.0 16.0 13.2 FINAL [facility] Whole Blood [facility]. [address] [place] [address] CLIA#[id number] 08/15 CBC w/ auto diff HCT % 37.0 47.0 39.6 FINAL [facility] Whole Blood [facility]. [address] [place] [address] CLIA#[id number] 08/15 CBC w/ auto diff MCV fL 81.0 99.0 95.90 FINAL [facility] Whole Blood [facility]. [address] [place] [address] CLIA#[id number] 08/15 CBC w/ auto diff MCH pg 27.0 31.0 32.00 High FINAL [facility] Whole Blood [facility]. [address] [place] [address] CLIA#[id number] 08/15 CBC w/ auto diff MCHC g/dL 33.0 37.0 33.30 FINAL [facility] Whole Blood [facility]. [address] [place] [address] CLIA#[id number] 08/15 CBC w/ auto diff RDW % 10.5 14.5 14.40 FINAL [facility] Whole Blood [facility]. [address] [place] [address] CLIA#[id number] 08/15 CBC w/ auto diff PLT 10^3/u L 130.0 400.0 244 FINAL [facility] Whole Blood [facility]. [address] [place] [address] CLIA#[id number] 08/15 CBC w/ auto diff MPV fL 9.4 12.3 8.3 Low FINAL [facility] Whole Blood [facility]. [address] [place] [address] CLIA#[id number] 08/15 CBC w/ auto diff Jimi % % 40.0 77.0 47.3 FINAL [facility] Whole Blood [facility]. [address] [place] [address] CLIA#[id number] 08/15 CBC w/ auto diff LY % % 15.0 41.0 34.6 FINAL [facility] Whole Blood [facility]. [address] [place] [address] CLIA#[id number] 08/15 CBC w/ auto diff MO % % 3.0 11.0 17.2 High FINAL [facility] Whole Blood [facility]. [address] [place] [address] CLIA#[id number] 08/15 CBC w/ auto diff EO % % 0.0 3.0 0.0 FINAL [facility] Whole Blood [facility]. [address] [place] [address] CLIA#[id number] 08/15 CBC w/ auto diff BA % % 0.0 1.0 0.70 FINAL [facility] Whole Blood [facility]. [address] [place] [address] CLIA#[id number] 08/15 CBC w/ auto diff IG % % 0.0 0.5 0.20 FINAL [facility] Whole Blood [facility]. [address] [place] [address] CLIA#[id number] 08/15 CBC w/ auto diff Jimi # (ANC) 10^3/u L 1.5 6.5 1.9 FINAL [facility] Whole Blood [facility]. [address] [place] [address] CLIA#[id number] 08/15 CBC w/ auto diff LY # 10^3/u L 1.2 3.4 1.4 FINAL [facility] Whole Blood [facility]. [address] [place] [address] CLIA#45D [id number] 08/15 CBC w/ auto diff MO # 10^3/u L 0.0 0.8 0.7 FINAL [facility] Whole Blood [facility]. [address] [place] [address] CLIA#[id number] 08/15 CBC w/ auto diff EO # 10^3/u L 0.0 0.3 0.0 FINAL [facility] Whole Blood [facility]. [address] [place] [address] CLIA#[id number] 08/15 CBC w/ auto diff BA # 10^3/u L 0.0 0.2 0.03 FINAL [facility] Whole Blood [facility]. [address] [place] [address] CLIA#[id number] 08/15 CBC w/ auto diff IG # 10^3/u L 0.0 0.03 0.01 FINAL [facility] Whole Blood [place] [address] CLIA#[id number] 08/15 CBC w/ auto diff NRBC, absol [place], x 10^3/ uL 0.0 0.01 0.0% FINAL [facility] Whole Blood [place] [address] CLIA#[id number] 08/15 CBC w/ auto diff NRBC, % 0.0 0.2 0.0% FINAL [facility] Whole Blood [place] [address] CLIA#[id number] Medications Date Name Route Dose Frequency Instructions Start Date End Date Status Fill Status Indication 08/15 Citalopr am Oral PO 1.0 tablet daily active Problems Diagnosis Status Date of Diagnosis Resolution Date 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 Vital Signs Date Type Value 08/15/2022 Body Temperature 98.10 08/15/2022 Heart Beat 85.00 08/15/2022 Respiratory Rate 16.00 08/15/2022 Intravascular Systolic 138 08/15/2022 Intravascular Diastolic 74 08/15/2022 BSA 1.76 08/15/2022 Weight 159.40 08/15/2022 Height 63.00 08/15/2022 BMI 28.24 08/15/2022 Pain Scale 0.00 Notes Section * OPTICAL MECH[employer]IC - Consult Note <html><head></head><body><div style=text-align:center><span class=clinicalNoteMacroHighlighted id=[id number] macroname= PracticeLetterhead spantype=macro title=#PracticeLetterhead><img height=80 [email or web address]" dmart=300></span>

<span class=clinicalNoteMacroHighlighted id=[id number] macroname=LocationPrintingName spantype=macro title=#LocationPrintingName>[facility]</span>
<span class=clinicalNoteMacroHighlighted id=[id number] macroname=LocationAddress spantype=macro title=#LocationAddress>[address] [facility]
[place] [address]</span>
<stron g>P: </strong><span class=clinicalNoteMacroHighlighted id=mac [id number] macroname=LocationPhoneNumber spantype=macro title =#LocationPhoneNumber> </span>
</div><div>&lt ;br>

<strong>PATIENT: </strong><span class=clini calNoteMacroHighlighted id=[id number] macroname=PatientName&quot ; spantype=macro title=#PatientName>ZACK WILL</span>
&l t;strong>MRN: </strong><span class=clinicalNoteMacroHighlighted id= [id number] macroname=PatientMRN spantype=macro title =#PatientMRN>[id number]</span>
<strong>: </strong><span class=clinicalNoteMacroHighlighted id=[id number] macro name=PatientDateOfBirth spantype=macro title=#PatientDateOfBirth >1965</span>

<strong>Date of Service: </strong><span class=clinicalNoteMacroHighlighted id=[id number] macr oname=EffectiveDate spantype=macro title=#EffectiveDate>08/15</span>

<span class=clinicalNoteSectionShowSeparators clinica lNoteSectionVisible id=[id number] internalbreaksection=false&q uot; originalname=Referring Provider recognizeconcepts=true spantype=s ection suppressempty=true>Referring Physician</span>

<span class=clinicalNoteSectionShowSeparators clinicalNoteSectionVisible id= [id number] internalbreaksection=false originalname=Chief Complaint recognizeconcepts=true spantype=section suppressempty= true>Reason for Consult/Chief Complaint</span>
endometrial cancer
& lt;br><span class=clinicalNoteSectionShowSeparators clinicalNoteSectionVisible id=[id number] internalbreaksection=false originalname=Princ ipal Diagnosis recognizeconcepts=true spantype=section suppressempty=& quot;true>Principal Diagnosis</span>
<span class=clinicalNoteMacrVA ighlighted id=[id number] macroname=Problems parameters=&qu ot;InitialCap:Yes,ListType:Bulleted,PrincipalOnly:Yes,[id number]:Yes spantype=macro title=#Problems(InitialCap:Yes,ListType:Bulleted,PrincipalOnly:Yes,[id number]:Ye s)><ul> <li>Primary malignant neoplasm of endometrium (disorder) ( First record:07/19/2017 Last record:07/19/2017; ICD-10:C54.1 ;Malignant neoplasm of endometrium )</li></ul></span>

<span class=clinicalNoteSectionShowSeparators clinicalNoteSectionVisible id=[id number] internalbreaksection=false origina lname=Diagnosis Notes recognizeconcepts=true spantype=section hickey ppressempty=true>Diagnosis*</span>

<span class= clinicalNoteSectionShowSeparators clinicalNoteSectionVisible id=[id number] internalbreaksection=false originalname=Treatment History recognizeconcepts=true spantype=section suppressempty=true>Treatment History</span>
<span class=clinicalNoteMacroHighlighted id=[id number] macroname=TreatmentHistory spantype=macro title= #TreatmentHistory> </span>

<span class=clinicalNoteSectionShowSeparators clinicalNoteSectionVisible id=section [id number] internalbreaksection=false originalname=Treatment Notes&q uot; recognizeconcepts=true spantype=section suppressempty=true& gt;Treatment History*</span>

<span class=clinicalNoteSec tionShowSeparators clinicalNoteSectionVisible id=[id number] internalbreaksection=false originalname=HPI recognizeconcepts=true spant ype=section suppressempty=true>History of Present Illness</span>
Zack Will is a melonie 57 year old lady who presented with abnormal bleeding in 2017. 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 She then had robotic hyst/bso/sentinal LND showingStage 1A, no LVSI, negative SLN. MMR intact. She did not have adjuvant therapy but in 01/24 she returned with bleeding and biopsy showed recurrent disease. She had PET showing widespread disease withperitoneal mets including a trocar site met. It was biopsied and grade 3. She underwent systemic chemo x 4 of planned 6 cycles due to her intolerance to chemo. She then recurred again in the vaginal cuff in 2019 and biopsy showed grade 2 c/w endometrial primary. She underwent EBRT and VBT completed07/27.
She has been in remission since that time.
She reports genetic testing negative. PDL1 reportedly positive.

The patient was requested to see me for further evaluation and management.

<span class=clini calNoteSectionShowSeparators clinicalNoteSectionVisible id=[id number]" internalbreaksection=false originalname=Past Medical History recognizeconcepts=true spantype=section suppressempty=true>Medical History</span>
endometrial cancer

<span class=clinicalNoteSectionShowSeparators clinicalNoteSectionVisible id=[id number] internalbreaksection=false originalname=Surgical History recognizeconcepts=true spantype=section suppressempty=true>Surgical History</span>
<span class=clinicalNoteMacroHighlighted id=[id number]" macroname=Surgeries parameters=LookBackDays:All,ListType:Bulleted spantype =macro title=#Surgeries(LookBackDays:All,ListType:Bulleted)> &am p;nbsp; </span>

<span class=clinicalNoteSectionShowSeparators clinicalNoteSectionVisible id=[id number] internalbreaksection=&q uot;false originalname=Surgical History Notes recognizeconcepts=true s pantype=section suppressempty=true>Surgical History*</span>
robotic hyst/bso/SLND 2018

<span class=clinicalNoteSectionShowSeparators clinicalNoteSectionVisible id=[id number] internalbreaksection="false originalname=Past Obstetrical and Gynecologic History recognizeconcepts=true spantype=section suppressempty=true>BARYTES GRINDER History</span>
<span class=clinicalNoteMacroHighlighted id=[id number] macroname=MenopausalStatus spantype=macro title=#MenopausalStatus> </span>
<span class=clinicalN oteMacroHighlighted id=[id number] macroname=OBGYNHx parame ters=ListType:Bulleted spantype=macro title=#OBGYNHx(ListType:Bulleted )> </span>

<span class=clini calNoteSectionShowSeparators clinicalNoteSectionVisible id=[id number]" internalbreaksection=false originalname=BARYTES GRINDER History* recognizeconcepts=true spantype=section suppressempty=true>BARYTES GRINDER History*</span>
G4

<span class=clinicalNoteSectionShowSeparators clinicalNoteSectionVisible id=[id number] internalbreaksection=false originalname=Family History recognizeconcepts=true spantype=section suppressempty=true>Family History</span>
<span class="clinicalNoteMacroHighlighted id=[id number] macroname=FamilyHistory parameters=ListType:Bulleted,ShowComments:Yes spantype=macro tit le=#FamilyHistory(ListType:Bulleted,ShowComments:Yes)> & lt;/span>

<span class=clinicalNoteSectionShowSeparators clinicalNoteS ectionVisible id=[id number] internalbreaksection=false originalname=Family History Notes recognizeconcepts=true spantype=section suppressempty=true>Family History*</span>
mother colon cancer age 57

<span class=clinicalNoteSectionShowSeparators clinicalNoteSecti onVisible id=[id number] internalbreaksection=false origi nalname=Social History recognizeconcepts=true spantype=section s uppressempty=true>Social History</span>
<span class=clinicalN oteMacroHighlighted id=[id number] macroname=PatientSmokingStatu s parameters=Label:Smoking Status spantype=macro title=#PatientS mokingStatus(Label:Smoking Status)>Smoking Status Smoking Tobacco : none found; Smokeless Tobacco : none found; Vaping : none found</span>

<span class=clinicalNoteSectionShowSeparators clinicalNoteSectionVisible id=[id number] internalbreaksection=false originalname=Social History Notes recognizeconcepts=true spantype=section suppressempty=true>Social History*</span>
nonsmoker, no etoh/drug abuse

<span class=clinicalNoteSectionShowSeparators clinicalNoteSectionVisible id=[id number] i nternalbreaksection=false originalname=Review of Systems recognizeconcepts=& quot;true spantype=section suppressempty=true>Review of Systems< /span>
Gen: no fever/chills, no weight loss/gain, no night sweats
Head: no headaches, dizziness, no confusion, no seizures, no tremor, no speech changes
ENT: no vision or hearing changes
respiratory: no shortness of breath/wheezing, no cough, no hemoptysis, no pleurisy
CV: no shortness of breath, chest pain, palpitations, no syncope, no edema
GI: No abdominal pain, no Nausea, no vomiting, no constipation, no diarrhea, no hematochezia, no jaundice, no hematemesis, no melena, no dyspepsia,no dysphagia
: no vaginal discharge, no suprapubic pain, no abnormal vaginal bleeding; no dysuria, no hematuria, no nocturia, no urinary incontinence
Musculoskeletal: no back pain, no muscle pain, no swollen joints, no joint redness, no bone pain, no spine ten derness
lymphatics: no lymphadenopathy, no lymphedema
Heme: no abnormal bleeding,no epistaxis, no gingival bleeding, no petechiae, no ecchymosis
Skin: no rash/infection
Psych: no anxiety/depression, normal concentration

<span class=clinicalNoteSectionShowSeparators clinicalNoteSectionVisible id=section [id number] internalbreaksection=false originalname=Medications recognizeconcepts=true spantype=section suppressempty=true>M edications</span>
<span class=clinicalNoteMacroHighlighted id=ana [id number] macroname=PatientMedications parameters=ListType:Bullet ed,ValueIfNull:No Known Medications spantype=macro title=#PatientMedications (ListType:Bulleted,ValueIfNull:No Known Medications)><ul> <li>Progesterone Oral 100 mg capsule 2 CAPSULE(S) PO daily as directed</li> <li>Travoprost Ophthalmic Drops 0.004 % 0.004 % drops 1 DROP(S) OU daily</li></ul></span>

Medica tions reviewed and reconciled with patient.
<span class=clinicalNoteSectionShowSeparators clinicalNoteSectionVisible id=[id number] internalbreaksection=false originalname=Medication Notes recognizeconcepts=true spantype=section suppressempty=true>Medications*</span>

<span class=clinicalNoteSectionShowSeparators clinicalNoteSectionVisible id=[id number] internalbreaksection=false original name=Allergies recognizeconcepts=true spantype=section suppresse mpty=true>Allergies</span>
<span class=clinicalNoteMacroHighlighted id=[id number] macroname=Allergies parameters=&quot ;ListType:Bulleted,ValueIfNull:No Known Allergies spantype=macro title=#Con rgies(ListType:Bulleted,ValueIfNull:No Known Allergies)><ul> <li>Penicillins&lt ;/li> <li>bacitracin</li></ul></span>

<span class=& quot;clinicalNoteSectionShowSeparators clinicalNoteSectionVisible id=[id number] internalbreaksection=false originalname=Allergy Notes recognizeconcepts=true spantype=section suppressempty=true>Allergies*</span>

<span class=clinicalNoteSectionShowSeparators clinicalNoteSectionVisible id=[id number] internalbreaksection=false originalname=Vitals/Performance Status recognizeconcepts=true spant ype=section suppressempty=true>Vitals/Performance Status</span>< br><strong>Performance Status: </strong><span class=clinicalNoteMac roHighlighted id=[id number] macroname=KarnofskyStatus para meters=Label:Karnofsky,ValueIfNull:Not Assessed spantype=macro title=# KarnofskyStatus(Label:Karnofsky,ValueIfNull:Not Assessed)>Karnofsky Not Assessed</span>

<strong>Vital Signs: </strong><span class=clinic alNoteMacrVAighlighted id=[id number] macroname=PatientHeight&q uot; parameters=Label:Height:,LookBackDays:0,ValueIfNull:None Today spantype=macro title=#PatientHeight(Label:Height:,LookBackDays:0,ValueIfNull:None Today)>Heig ht: 63 in</span>; <span class=clinicalNoteMacroHighlighted id=[id number] macroname=PatientWeight parameters=Label:Weight:,LookBackDays:0, ValueIfNull:None Today spantype=macro title=#PatientWeight(Label:Weight:,Loo kBackDays:0,ValueIfNull:None Today)>Weight: 159.4 lb</span>; <span class=cli nicalNoteMacroHighlighted id=[id number] macroname=PatientVitalSi gns parameters=LookBackDays:0,Verbosity:Medium spantype=macro title=&q uot;#PatientVitalSigns(LookBackDays:0,Verbosity:Medium)>Blood pressure: 138/74, Pulse: 85,Temperature: 98.1 F, Respirations: 16, Pain Scale: 0</span>
<span class=clinicalNoteSectionShowSeparators clinicalNoteSectionVisible id=[id number]" internalbreaksection=false originalname=Physical Exam recognizeconcepts="true spantype=section suppressempty=true>Physical Exam</span>
Constitutional: VSSAF; appears stated age
Gen: NAD, A&O x 3
Neuro: no focal deficit
Eyes: normal pupils, equal, round, reactive
Neck: supple, no lymphadenopathy
Lung: clear bilaterally ; good respiratory effort
cardiovascular: regular rate and rhythm , normal S1S2
abdomen: no abdominal mass, no hepatosplenomegaly, normal bowel sounds, soft abdomen, no tenderness to palpation
Musculoskeletal: normal gait, adequate strength and muscle tone
Genitourinary: normal external female genitalia, normal perineum, urethra, bladder, vaginal pritchard, vaginal cuff. Radiationchanges noted. No palpable masses. Surgically absent uterus, cervix, adnexa
Skin: no notable rashes or abnormalities

<span class=clin icalNoteSectionShowSeparators clinicalNoteSectionVisible id=[id number]" internalbreaksection=false originalname=Procedures recognizeconcepts="true spantype=section suppressempty=true>Procedure</span>

<span class=clinicalNoteSectionShowSeparators clinicalNoteSectionVisible id=[id number] internalbreaksection=false originalname=Imaging recognizeconcepts=true spantype=section suppressem pty=true>Imaging</span>

<span class=clini calNoteSectionShowSeparators clinicalNoteSectionVisible id=[id number]" internalbreaksection=false originalname=Pathology recognizeconcepts="true spantype=section suppressempty=true>Pathology</span>

<span class=clinicalNoteSectionShowSeparators clinicalNoteSectionVisible id=[id number] internalbreaksection=false originalname=Lab recognizeconcepts=true spantype=section suppressempty =true>Lab</span>
<span class=clinicalNoteMacroHighlighted" id=[id number] macroname=RecentLabResultsTable parameters=&quo t;OptionalFlowsheetCategory:CBC,Label:CBC,ValueIfNull:None Today spantype=macro ti tle=#RecentLabResultsTable(OptionalFlowsheetCategory:CBC,Label:CBC,ValueIfNull: None Today)">CBC None Today</span>
<span class=clinicalNoteMacroHighlighted id=[id number] macroname=RecentLabResultsTable parameters=Op tionalFlowsheetCategory:Chemistries,Label:Chemistries,ValueIfNull:None Today spantype=macro title=#RecentLabResultsTable(OptionalFlowsheetCategory:Chemistries,Label:Chemis tries,ValueIfNull:None Today)>Chemistries<table border=1 style=width:100%&q uot;> <tbody> <tr> <th align=left>LabResults</th> <td>07/19/2017</td> <td>07/09/2017</td> </tr> <tr> <th align=left& quot;> Chemistries</th> <td>
</td> <td>
</td> </tr> <tr> <td> Glucose mg/dL</td> <td>89</td> <td>
</td> </tr> <tr> <td> BUN mg/dL</td> <td>14</td> <td>
</td> </tr> <tr> <td> Creatinine, mg/dL</td> <td>1</td> <td>
</td> </tr> <tr> <td> Sodium mmol/L</td> <td>140</td> <td>
</td> </tr> <tr> <td> Potassium mmol/L</td> <td>4.3</td> <td>
</td> </tr> <tr> <td> Chloride mmol/L</td> <td>104</td> <td>
</td> </tr> <tr> <td> CO2 mmol/L</td> <td>29</td> <td>
</td> </tr> <tr> <td> Calcium mg/dL</td> <td>8.9</td> <td>
</td> </tr> <tr> <td> GFR estimate mL/min/1.73m2</td> <td>68</td> <td>
</td> </tr> </tbody></table></span>
<span class=clinicalNoteMacroHighlighted id=[id number] macroname="RecentLabResultsTable parameters=OptionalFlowsheetCategory:Coags,Label:Coags,ValueIfNull:None Today spantype=macro title=#RecentLabResultsTable(OptionalFlowshee tCategory:Coags,Label:Coags,ValueIfNull:None Today)>Coags None Today</span>
<span class=clinicalNoteMacroHighlighted id=[id number] macroname= RecentLabResultsTable parameters=OptionalFlowsheetCategory:Tumor Markers,Label:Tumor Markers,ValueIfNull:None Today spantype=macro title=#RecentLabResultsTable(OptionalFlowsheetCategory:Tumor Markers,Label:Tumor Markers,ValueIfNull:None Today)>Tumor Markers None Today</span>
<span class=clinicalNoteMacroHighchi health mercy council bluffsed id =[id number] macroname=RecentLabResultsTable parameters=Opti onalFlowsheetCategory:Urine,Label:Urine,ValueIfNull:None Today spantype=macro titl e=#RecentLabResultsTable(OptionalFlowsheetCategory:Urine,Label:Urine,ValueIfNul l:None Today)">Urine None Today</span>

<span class=clinicalNoteSectionShowSeparators clinicalNoteSectionVisible id=[id number] internalbreaksection=false originalname=Assessment recognizeconcepts=true spantype=section suppressempty=true>Assessment</span>
1. Endometrial Cancer, Stage 1A, Grade 1, recurrent in the peritoneum as grade 3 within one year and treatedwith chemo x 4 cycles. Recurrent in vaginal cuff 2020 and treated with EBRT and VBT. Now in Remission.

<span class=clinicalNoteSectionShowSeparators clinicalNoteSectionVisible id=[id number] internalbreaksection=false originalname=Plan recognizeconcepts=true spantype=section suppressempty=true>Plan</span>

We have reviewed records from her referring physician. We discussed her extensive course and recurrences and treatment. She has been inremission since 2019 and feels well now. We have reviewed risks of recurrence and symptoms to watchfor. She will have labs today and on return and we will plan for imaging with symptoms. She will call with any problems and plan to f/u in 6m.

<span class=clinicalNoteSectionShowSeparators clinicalNoteSectionVisible id=[id number]=false originalname=Problem List recognizeconcepts="true spantype=section suppressempty=true>Problem List</span>
<span class=clinicalNoteMacroHighlighted id=[id number]" macroname=Problems parameters=ListType:Bulleted,Verbosity:Low spantype=& quot;macro title=#Problems(ListType:Bulleted,Verbosity:Low)><ul> <li&g t;Primary malignant neoplasm of endometrium (disorder)</li></ul></span>
& lt;br><span class=clinicalNoteSectionShowSeparators clinicalNoteSectionVisible id=[id number] internalbreaksection=false originalname=." recognizeconcepts=true spantype=section suppressempty=true> .</span>

<span class=clinicalNoteMacroHighlighted id=[id number] macroname=MyName spantype=macro" title=#MyName>Evan Adrian MD, [facility]</span>

<span class=clinicalNoteMacroHighlighted id=[id number] macron nicho=NoteRecipients spantype=macro title=#NoteRecipients>CLINTW- Nivia - RF</span>

<span class=clinicalNoteSectionShowSeparators clinicalNoteSectionVisible id=[id number] internalbreaksection="false originalname=Send copy of note to: recognizeconcepts=true" spantype=section suppressempty=true>Send copy of note to:</span>
Corey Monroy MD
Reji Hagan MD

.
</div>

<div><span class=eSignSignature>Electronically signed by Evan Adrian MD, [facility] 08/15/2022 14:08 CDT</span></div></body></html>
--- OUTSIDE RECORDS SUMMARY | 2025-01-20 14:55 | XMS_ITS | Encounter Summary ---
Author Organization [facility] Address [address] [place] [address] Care Team Providers Care General Milling Superintendent Name Role Phone Elsewhere, Pcp Primary Care Provider Unavailabl e Reason for Visit * Reason Onset Date Comments sx difficulty with bm 01/14/2025 Encounter Details Date Type Department Care Team (Latest Contact Info) Description 01/14/2025 Clinical Communication Department of Oncology in [place], [place] [address] [place] [address] Donna Gross, RKlaus., O.C.N. [address] [place] [address] sx difficulty with bm Social History Tobacco Use Types Packs/Day Years Used Date Smoking Tobacco: Never Passive Smoke Exposure: Never Smokeless Tobacco: Never Alcohol Use Standard Drinks/Week Comments Not Currently 1 (1 standard drink = 0.6 oz pur e alcohol) 1 glass wine per month [facility] Utilities Answer Date Recorded In the past 12 months has e [employer], gas, oil, or water [employer] threatened to shut off services in your [...] your living situation today? I have a [facility] place to live 09/30/2024 Comments No Sex and Gender Information Value Date Recorded Sex Assigned at Female 09/30/2024 9:25 AM CDT Legal Sex Female 12:05 PM CDT Gender Identity Female 09/30/2024 9:25 AM CDT Sexual Orientation Straight 09/30/2024 9: 25 AM CDT documented as of this encounter Miscellaneous Notes * Telephone Encounter - Tracy Sam R.N. - 01/14/2025 1:48 PM CDT SUBJECTIVE CHIEF COMPLAINT / REASON FOR CALL sx difficulty with bm TREATMENT: - cycle 4 given 01/07 of ipilimumab and nivolumab ASSESSMENT I spoke with Ms. Will to follow up on her earlier call. He shares that she has been having daily bowel movements, but the amount has been less than it usually is. She describes the stools as soft. She is passing gas daily. She reports that she does have some abdominal cramping while she is havingor trying to have a bowel movement. She denies any other abdominal pain, nausea, blood in his stool or fever. She has noticed some mucus when wiping. She reports that she is eating less than she usedto because things just do not taste the same. She estimates that she is getting 50 to 60 oz of oralnon caffeinated fluid per day. After speaking with provider in the dietitian, she did it start incorporating an sicc-lei-oztvsxq fiber gummy. She has been taking 1 per week. Kaleigh is also trying to increase the dietary fiber she gets per day. She reports that the dietitian did tell her she could increase to 2 gummies per week, not implemented that yet. We did discuss that since she is having daily bowel movements, we can observe for now. We reviewed that she should call back if she has any increase constipation, more than 3 days without a bowel movement or she develops any fever, abdominal pain or blood in his stools. She can increase her gummy fibers if she wishes or [place] and rbrn-gds-edftcnm mild stool softener like colace. We reviewed since she is eating less, this might be accounting for the lower stool volume. We also discussed thatshe should be hydrating well and moving around as much as she feels up to as activity can help the bowels work better. We also reviewed that she should keep a diary of the stools she is having to better keep track of those. She verbalized understanding of all information shared had no other questions. PLAN - Will monitor constipation and call back if it worsens Disposition/Recommendation: self-care . appropriate at this time, patient encouraged to call back with questions. Information/Education: patient/caller able to teach back. Caller agreeable to plan of care: yes. The following references were used: nursing clinical judgement. documented in this encounter Plan of Treatment Upcoming Encounters Date Type Department Care Team (Latest Contact Info) Description 01/23/2025 12:15 PM CDT Clinical Communication Virtual Review in [address] [phone] 01/23/2025 2:15 PM CDT Appointment Department of Radiology, [address] [phone] Yossi Cabrera M.D., Ph.D. [address] [place] [phone] 01/26/2025 11:15 AM CDT Appointment Department of Radiology, [facility] in [address] [phone] Yossi Cabrera M.D., Ph.D. [address] [place] [phone] 01/26/2025 12:40 PM CDT Lab Department of Laboratory Medicine and Pathology, [address] [phone] Yossi Cabrera M.D., Ph.D. [address] [place] [phone] 01/27/2025 1:40 PM CDT Office Visit Department of Oncology in [place], [place] [address] [place] [phone] Sara Rowan P.A.-C., M.S. [address] [place] [phone] 01/27/2025 2:30 PM CDT Infusion Department of Oncology in [place], [place] [address] [place] [phone] Yossi Cabrera M.D., Ph.D. [address] [place] [phone] 03/16/2025 10:30 AM PARTS IDENTIFICATION TECHNICIAN Office Visit Department of Oncology in [place], [place] [address] [place] [phone] Yossi Cabrera M.D., Ph.D. [address] [place] [phone] documented as of this encounter Visit Diagnoses Not on filedocumented in this encounter Additional Health Concerns Infection Onset Date Last Indicated Resolved Time Protective Environment 11/04/2024 11/04/2024 documented as of this encounter Care Teams General Milling Superintendent Relationship Specialty Start Date End Date Elsewhere, Pcp PCP - General Internal Medicine 09/28/24 documented as of this encounter
--- OUTSIDE RECORDS SUMMARY | 2025-01-20 14:55 | XMS_ITS | Encounter Summary ---
Author Organization [facility] Address [address] [place] [address] Care Team Providers Care Rubber Factory Worker Name Role Phone Elsewhere, Pcp Primary Care Provider Unavailabl e Reason for Visit * Reason Onset Date Comments sx rash 12/10/2024 Encounter Details Date Type Department Care Team (Late st Contact Info) Description 12/10/2024 Clinical Communication Department of Oncology in [place], [place] [address] [place] [phone] Donna Gross, RKlaus., O.C.N. [address] [place] [phone] sx rash Social History Tobacco Use Types Packs/Day Years Used Date Smoking Tobacco: Never Passive Smoke Exposure: Never Smokeless Tobacco: Never Alcohol Use Standard Drinks/Week Comments Yes 1 (1 standard drink = 0.6 oz pur e alcohol) 1 glass wine per month [facility] Utilities Answer Date Recorded In the past 12 months has [employer], gas, oil, or water [employer] threatened to shut off services in your [...] situation today? I have a [facility] place to live 09/30/2024 Comments No Sex and Gender Information Value Date Recorded Sex Assigned at Female 09/30/2024 9:25 AM CDT Legal Sex Female 12:05 PM CDT Gender Identity Female 09/30/2024 9:25 AM CDT Sexual Orientation Straight 09/30/2024 9: 25 AM CDT documented as of this encounter Miscellaneous Notes * Telephone Encounter - Donna Gross R.N., O.C.N. - 12/10/2024 2:19 PM CDT SUBJECTIVE CHIEF COMPLAINT / REASON FOR CALL sx rash ASSESSMENT I called and spoke with Ms. Will in regards to her rash. She reports that she started to develop a rash on Sunday. She states that it is involving her chest and abdomen. She reports that the rash looks flat and blotchy. She denies any blisters or fevers. She does report that she has pruritus associated with her rash, as well as pruritus on her upper extremities (no visible rash). She denies anychanges to soaps or detergents. Ms. Will does note that her dexamethasone was completed yesterday. She states that she has been using Benadryl in the evening to help her sleep and this is helped with her pruritus. She also statesthat she has occasionally used calamine lotion or Benadryl gel to help with the pruritus. PLAN Per Dr. Cabrera, I have let Ms. Will know that she should start taking Zyrtec or Claritin every morning, can continue using Benadryl in the evening as needed, and start applying triamcinolone cream. I let her know that I would like her to send in a portal message with a picture of her rash and thatshe should let us know if she has any worsening of her symptoms. She verbalized understanding of this. Disposition/Recommendation: recommended continue engagement in self-management activities. Information/Education: patient/caller able to teach back. Caller agreeable to plan of care: yes. The following references were used: nursing clinical judgement. documented in this encounter Plan of Treatment Upcoming Encounters Date Type Department Care Team (Latest Contact Info) Description 01/23/2025 12:15 PM CDT Clinical Communication Virtual Review in [place], [place] 200 [place] [phone] 01/23/2025 2:15 PM CDT Appointment Department of Radiology, [facility] in [place], [place] [address] [place] [phone] Yossi Cabrera M.D., Ph.D. [address] [place] [phone] 01/26/2025 11:15 AM CDT Appointment Department of Radiology, [facility] in [address] [phone] Yossi Cabrera M.D., Ph.D. [address] [place] [phone] 01/26/2025 12:40 PM CDT Lab Department of Laboratory Medicine and Pathology, [facility] in [address] [phone] Yossi Cabrera M.D., Ph.D. [address] [place] [phone] 01/27/2025 1:40 PM CDT Office Visit Department of Oncology in [address] [phone] Sara Rowan P.A.-C., M.S. [address] [place] [phone] 01/27/2025 2:30 PM CDT Infusion Department of Oncology in [place], [place] [address] [place] [phone] Yossi Cabrera M.D., Ph.D. [address] [place] [phone] 03/16/2025 10:30 AM BREADMAN Office Visit Department of Oncology in [place], [place] [address] [place] [phone] Yossi Cabrera M.D., Ph.D. [address] [place] [phone] documented as of this encounter Visit Diagnoses Not on filedocumented in this encounter Additional Health Concerns Infection Onset Date Last Indicated Resolved Time Protective Environment 11/04/2024 11/04/2024 documented as of this encounter Care Teams Rubber Factory Worker Relationship Specialty Start Date End Date Elsewhere, Pcp PCP - General Internal Medicine 09/28/24 documented as of this encounter
--- OUTSIDE RECORDS SUMMARY | 2025-01-20 14:55 | XMS_ITS | Encounter Summary ---
Author Organization [facility] Address [address] [place] [address] Care Team Providers Care Paste Mixer Liquid Name Role Phone Elsewhere, Pcp Primary Care Provider Unavailabl e Reason for Visit * Reason Onset Date Comments Sx - abdominal pain that comes and goes 01/03/20 Encounter Details Date Type Department Care Team (Latest Contact Info) Description 01/02/2025 Clinical Communication Department of Oncology in [place], [place] [address] [place] [address] Donna Gross R.N., O.C.N. [address] [place] [address] Sx - abdominal pain that comes and goes Social History Tobacco Use Types Packs/Day Years Used Date Smoking Tobacco: Never Passive Smoke Exposure: Never Smokeless Tobacco: Never Alcohol Use Standard Drinks/Week Comments Yes 1 (1 standard drink = 0.6 oz pur e alcohol) 1 glass wine per month [facility] Utilities Answer Date Recorded In the past 12 months has e [employer], gas, oil, or water [employer] threatened to shut off services in your home? No 09/30/2024 Hunger Vital Sign Answer Date Recorded Within the past 12 months, y ou worried that your food would run out before you got the money to buy more. Never true 10/01/19 Within the past 12 months, t he [...] your living situation today? I have a [facility] place to live 09/30/2024 Comments No Sex and Gender Information Value Date Recorded Sex Assigned at Female 09/30/2024 9:25 AM CDT Legal Sex Female 12:05 PM CDT Gender Identity Female 09/30/2024 9:25 AM CDT Sexual Orientation Straight 09/30/2024 9: 25 AM CDT documented as of this encounter Miscellaneous Notes * Telephone Encounter - Tracy Sam R.N. - 01/02/2025 11:09 AM CDT SUBJECTIVE CHIEF COMPLAINT / REASON FOR CALL Sx - abdominal pain that comes and goes TREATMENT: Ipilimumab/Nivolumab- D1 C3 given 12/17 ASSESSMENT I spoke with Mrs. Will about her earlier call. She shares that approximately 2 days ago on Sunday she noticed some intermittent lower right abdominal pain, just above the groin area. The pain isworse when she moves around. When she is sitting she does not feel it. She rates the pain 06/16. Shedescribes this as an ache. She has not taken any Tylenol yet today, but did yesterday with some reli ef. She has also been using a heating pad which does seem to help. She denies any numbness or tingling in the area and there is no radiation of the ache. There has been activity that she feels this is muscular. She reports that in general she has been eating and drinking well. She estimates that she gets approximately 50-60 oz of oral fluid per day. She did note some mild dizziness over last week, but this resolved when she ate and drank some water. She has not had any dizziness in the last couple of days since the pain started. She denies any shortness of breath, fever, chest pain, nausea ordiarrhea. She notes that she did feel slightly constipated earlier in the week, but did have a small, soft BM this morning. She noted some mucus in his stool, but no blood. Her baseline stools are 1-2 daily. She is passing gas throughout the day. I let her know that I will update Sara Rowan about these symptoms and get back to her. PLAN Addendum: After speaking with Sara Rowan PA-C, I called Mrs. Will back to let her know recommendations. For now, Sara would like her to observe her pain. She can continue to use anhj-azy-nsuubwz Tylenol and heating pad as needed. We reviewed that if the pain worsens or she develops fever, nausea or her bowels/gas stop- she needs to be evaluated at her local emergency department. We diddiscuss that she can try fplf-jel-obshmfa MiraLax or Colace if she feels that she is constipated. She is wondering if this could be an appendicitis. I explained that it could be, but she would need an in-person evaluation, labs and a scan to determine this. We again reviewed the signs and symptoms that she should report to her local emergency with. I also last her to let us know on Sunday if new symptoms develop over the weekend. Otherwise, Sara will plan on seeing her as scheduled 01/07. Sheverified that she has the construction services technician MD phone number in case this is needed over the weekend. She verbalized understanding of all information shared had no further questions Disposition/Recommendation: notified provider and awaiting recommendations. Information/Education: patient/caller able to teach back. Caller agreeable to plan of care: yes. The following references were used: nursing clinical judgement. documented in this encounter Plan of Treatment Upcoming Encounters Date Type Department Care Team (Latest Contact Info) Description 01/23/2025 12:15 PM CDT Clinical Communication Virtual Review in [place], [place] 200 [place] [phone] 01/23/2025 2:15 PM CDT Appointment Department of Radiology, [facility], in [place], [place] [address] [place] [phone] Yossi Cabrera M.D., Ph.D. [address] [place] [phone] 01/26/2025 11:15 AM CDT Appointment Department of Radiology, [facility] in [place], [place] [address] [place] [phone] Yossi Cabrera M.D., Ph.D. [address] [place] [phone] 01/26/2025 12:40 PM CDT Lab Department of Laboratory Medicine and Pathology, [place], [place] [address] [place] [phone] Yossi Cabrera M.D., Ph.D. [address] [place] [phone] 01/27/2025 1:40 PM CDT Office Visit Department of Oncology in [address] [phone] Sara Rowan P.A.-C., M.S. [address] [place] [phone] 01/27/2025 2:30 PM CDT Infusion Department of Oncology in [address] [phone] Yossi Cabrera M.D., Ph.D. [address] [place] [phone] 03/16/2025 10:30 AM VEST BUSHELER Office Visit Department of Oncology in [address] [phone] Yossi Cabrera M.D., Ph.D. [address] [place] [phone] documented as of this encounter Visit Diagnoses Not on filedocumented in this encounter Additional Health Concerns Infection Onset Date Last Indicated Resolved Time Protective Environment 11/04/2024 11/04/2024 documented as of this encounter Care Teams Paste Mixer Liquid Relationship Specialty Start Date End Date Elsewhere, Pcp PCP - General Internal Medicine 09/28/24 documented as of this encounter
--- OUTSIDE RECORDS SUMMARY | 2025-01-20 14:55 | XMS_ITS | Encounter Summary ---
Author Organization [facility] Address [address] [place] [address] Care Team Providers Care Charge Operator Name Role Phone Elsewhere, Pcp Primary Care Provider Unavailabl e Encounter Details Date Type Department Care Team (Late st Contact Info) Description 12/09/2024 Clinical Communication Department of Oncology in [place], [place] [address] [place] [phone] Yossi Cabrera M.D., Ph.D. [address] [place] [address] Social History Tobacco Use Types Packs/Day Years Used Date Smoking Tobacco: Never Passive Smoke Exposure: Never Smokeless Tobacco: Never Alcohol Use Standard Drinks/Week Comments Yes 1 (1 standard drink = 0.6 oz pur e alcohol) 1 glass wine per month [facility] Utilities Answer Date Recorded In the past 12 months has [facility] [employer], gas, oil, or water [employer] threatened to shut off services in your [...] your living situation today? I have a [facility] place to live 09/30/2024 Comments No [...] PM CDT Clinical Communication Virtual Review in [place], [place] 200 [place] [address] 01/23/2025 2:15 PM CDT Appointment Department of Radiology, [place], [place] [address] [place] [phone] Yossi Cabrera M.D., Ph.D. [address] [place] [phone] 01/26/2025 11:15 AM CDT Appointment Department of Radiology, [facility] in [place], [place] [address] [place] [phone] Yossi Cabrera M.D., Ph.D. [address] [place] [phone] 01/26/2025 12:40 PM CDT Lab Department of Laboratory Medicine and Pathology, [facility] in [place], [place] [address] [place] [phone] Yossi Cabrera M.D., Ph.D. [address] [place] [phone] 01/27/2025 1:40 PM CDT Office Visit Department of Oncology in [place], [place] [address] [place] [phone] Sara Rowan P.A.-C., M.S. [address] [place] [phone] 01/27/2025 2:30 PM CDT Infusion Department of Oncology in [place], [place] [address] [place] [phone] Yossi Cabrera M.D., Ph.D. [address] [place] [phone] 03/16/2025 10:30 AM ALLEY WORKER Office Visit Department of Oncology in [place], [place] [address] [place] [phone] Yossi Cabrera M.D., Ph.D. [address] [place] [phone] documented as of this encounter Visit Diagnoses Not on filedocumented in this encounter Additional Health Concerns Infection Onset Date Last Indicated Resolved Time Protective Environment 11/04/2024 11/04/2024 documented as of this encounter Care Teams Charge Operator Relationship Specialty Start Date End Date Elsewhere, Pcp PCP - General Internal Medicine 09/28/24 documented as of this encounter
--- OUTSIDE RECORDS SUMMARY | 2025-01-20 14:55 | XMS_ITS | Encounter Summary ---
Author Organization [facility] Address [address] [place] [address] Care Team Providers Care Insurance Office Manager Name Role Phone Elsewhere, Pcp Primary Care Provider Unavailabl e Reason for Visit * Reason Onset Date Comments SX - vision issues 01/20/2025 SX - right leg weakness 01/20/2025 Encounter Details Date Type Department Care Team (Latest Contact Info) Description 01/20/2025 Clinical Communication Department of Oncology in [place], [place] [address] [place] [address] Donna Gross, Venu., O.C.N. [address] [place] [address] SX - vision issues; SX - right leg weakness Social History Tobacco Use Types Packs/Day Years Used Date Smoking Tobacco: Never Passive Smoke Exposure: Never Smokeless Tobacco: Never Alcohol Use Standard Drinks/Week Comments Not Currently 1 (1 standard drink = 0.6 oz pur e alcohol) 1 glass wine per month [facility] Utilities Answer Date Recorded In the past 12 months has [employer], gas, oil, or water [employer] threatened to shut off services in your [...] your living situation today? I have a [facility] place to live 09/30/2024 Comments No Sex and Gender Information Value Date Recorded Sex Assigned at Female 09/30/2024 9:25 AM CDT Legal Sex Female 12:05 PM CDT Gender Identity Female 09/30/2024 9:25 AM CDT Sexual Orientation Straight 09/30/2024 9: 25 AM CDT documented as of this encounter Miscellaneous Notes * Telephone Encounter - Donna Gross R.N., O.C.N. - 01/20/2025 12:03 PM CDT SUBJECTIVE CHIEF COMPLAINT / REASON FOR CALL SX - vision issues and SX - right leg weakness ASSESSMENT I called and spoke with Ms. Will. She reports that over the weekend she started noticing intermittent visual change in her right eye. She states that it is like she keeps ???seen something in the corner of my eye?? . She describes this as seeing a ???ceiling fan running ???. She denies any flashes of light, eye pain, or redness. Ms. Will also reports that over the weekend she noticed that her right thigh was sore and weaker.She states that she is having difficulty lifting up her leg to get into a car or to even get her pants on. She denies any numbness or tingling into her legs. She denies any weakness or pain on her left side. She denies any bowel or bladder changes. She reports that this morning she did have a difficult time putting the towel back on a hook with her right arm, however states that this has now resolved. Ms. Will also reports that she has intermittent headaches, mainly associated with her visual changes. She states that they are overall mild and rates them at a 2 to 3/10. PLAN Given her current symptoms, I have recommended that Ms. Will be evaluated in her local ER. I havelet her know that the providers are welcome to call here if they have any questions for our team. Ihave asked that she keep us updated on the outcome. Disposition/Recommendation: recommended to report to the nearest emergency department and recommended not to drive self . Information/Education: patient/caller able to teach back. Caller agreeable to plan of care: yes. The following references were used: nursing clinical judgement. documented in this encounter Plan of Treatment Upcoming Encounters Date Type Department Care Team (Latest Contact Info) Description 01/23/2025 12:15 PM CDT Clinical Communication Virtual Review in [address] [phone] 01/23/2025 2:15 PM CDT Appointment Department of Radiology, [address] [phone] Yossi Cabrera M.D., Ph.D. [address] [place] [phone] 01/26/2025 11:15 AM CDT Appointment Department of Radiology[address] [phone] Yossi Cabrera M.D., Ph.D. [address] [place] [phone] 01/26/2025 12:40 PM CDT Lab Department of Laboratory Medicine and Pathology, [address] [phone] Yossi Cabrera M.D., Ph.D. [address] [place] [phone] 01/27/2025 1:40 PM CDT Office Visit Department of Oncology in [address] [phone] Sara Rowan P.A.-C., M.S. [address] [place] [phone] 01/27/2025 2:30 PM CDT Infusion Department of Oncology in [place], [place] [address] [place] [phone] Yossi Cabrera M.D., Ph.D. [address] [place] [phone] 03/16/2025 10:30 AM CROP SCOUT Office Visit Department of Oncology in [place], [place] [address] [place] [phone] Yossi Cabrera M.D., Ph.D. [address] [place] [phone] documented as of this encounter Visit Diagnoses Not on filedocumented in this encounter Additional Health Concerns Infection Onset Date Last Indicated Resolved Time Protective Environment 11/04/2024 11/04/2024 documented as of this encounter Care Teams Insurance Office Manager Relationship Specialty Start Date End Date Elsewhere, Pcp PCP - General Internal Medicine 09/28/24 documented as of this encounter
[2025-01-20 14:56] LABS: Hematocrit* 36.3 % (33.0-51.0); Hemoglobin* 11.5 gm/dL (12.0-16.0); Immature Granulocytes Abs Auto 0.01 K/uL (0.00-0.30); Immature Granulocytes Pct Auto 0.1 %; Lymphocytes Absolute Auto 1.67 K/uL (0.90-2.90); Mean Corpuscular HGB Conc 32 gm/dL (32-36); Mean Corpuscular Hemoglobin 29 pg (26-34); Mean Corpuscular Volume 90 fL (80-100); RDW Coefficient of Variation % 17.9 % (11.5-15.5); Red Blood Count* 4.02 m/uL (4.00-5.20); White Blood Count* 6.68 K/uL (4.50-11.00)
--- OUTSIDE RECORDS SUMMARY | 2025-01-20 14:56 | XMS_ITS | Encounter Summary ---
Author Organization [facility] Address [address] [place] [address] Care Team Providers Care Dynamometer Tuner Name Role Phone Elsewhere, Pcp Primary Care Provider Unavailabl e Encounter Details Date Type Department Care Team ([facility] st Contact Info) Description 11/10/2024 Clinical Communication Department of Radiation Oncology in [place], [place] [address] [place] [address] Lindsay Vaughan M.D. [address] [place] [address] Social History Tobacco Use Types Packs/Day Years Used Date Smoking Tobacco: Never Passive Smoke Exposure: Never Smokeless Tobacco: Never Alcohol Use Standard Drinks/Week Comments Yes 0 (1 standard drink = 0.6 oz pur e alcohol) 1 glass wine per month [facility] Utilities Answer Date Recorded In the past 12 months has e [employer], gas, oil, or water [employer] threatened to shut off services in your [...] your living situation today? I have a [facility] place to live 09/30/2024 Comments No Sex and Gender Information Value Date Recorded Sex Assigned at Female 09/30/2024 9:25 AM CDT Legal Sex Female 12:05 PM CDT Gender Identity Female 09/30/2024 9:25 AM CDT Sexual Orientation Straight 09/30/2024 9: 25 AM CDT documented as of this encounter Miscellaneous Notes * Telephone Encounter - Krysta Saldaña R.N. - 11/10/2024 3:28 PM CDT Email sent to scheduling and team documented in this encounter Plan of Treatment Upcoming Encounters Date Type Department Care Team (Latest Contact Info) Description 01/23/2025 12:15 PM CDT Clinical Communication Virtual Review in [address] [phone] 01/23/2025 2:15 PM CDT Appointment Department of Radiology, [address] [phone] Yossi Cabrera M.D., Ph.D. [address] [place] [phone] 01/26/2025 11:15 AM CDT Appointment Department of Radiology, [facility] in [address] [phone] Yossi Cabrera M.D., Ph.D. [address] [place] [phone] 01/26/2025 12:40 PM CDT Lab Department of Laboratory Medicine and Pathology, [facility] in [place], [place] [address] [place] [phone] Yossi Cabrera M.D., Ph.D. [address] [place] [phone] 01/27/2025 1:40 PM CDT Office Visit Department of Oncology in [place], [place] [address] [place] [phone] Sara Rowan P.A.-C., M.S. [address] [place] [phone] 01/27/2025 2:30 PM CDT Infusion Department of Oncology in [place], [place] [address] [place] [phone] Yossi Cabrera M.D., Ph.D. [address] [place] [phone] 03/16/2025 10:30 AM DIESEL SERVICE TECHNICIAN Office Visit Department of Oncology in [place], [place] [address] [place] [phone] Yossi Cabrera M.D., Ph.D. [address] [place] [phone] documented as of this encounter Visit Diagnoses Not on filedocumented in this encounter Additional Health Concerns Infection Onset Date Last Indicated Resolved Time Protective Environment 11/04/2024 11/04/2024 documented as of this encounter Care Teams Dynamometer Tuner Relationship Specialty Start Date End Date Elsewhere, Pcp PCP - General Internal Medicine 09/28/24 documented as of this encounter
--- OUTSIDE RECORDS SUMMARY | 2025-01-20 14:56 | XMS_ITS | CCD ---
Author Name Interface, [id number] Address [place] [address] Organization [facility] Address [place] [address] Care Team Providers Care Raw Hide Trimmer Name Role Phone Nguyễn JOSEPH, [facility], Evan Solis Unavailable Unavail able Allergies and Adverse Reactions Medication/Group Name Reaction Severity Date Penicillins Rash 08/15/2022 Reason for Visit 1552 LAB MD Medications Date Name Route Dose Frequency Instructions Start Date End Date Status Fill Status Indication 08/15 Citalop raúl Oral PO 1.0 tablet daily active 09/10 Progest erone Oral PO 2.0 CAPSULE (S) daily as directed 07/19 inactive 09/10 Travopr ost Ophthal margoth Drops 0.004 % OU 1.0 DROP(S) daily 07/19 inactive Problems Diagnosis Status Date of Diagnosis Resolution Date Body mass index [BMI] 21.0-21.9, adult Inactive 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
--- OUTSIDE RECORDS SUMMARY | 2025-01-20 14:56 | XMS_ITS | Clinical Summary ---
Author Organization [facility] Address [address] [place] [address] Care Team Providers Care Jet Handler Name Role Phone Elsewhere, Pcp Primary Care Provider Unavailabl e Source Comments Patient records contain information from all sites at [facility]. For routine questions regarding patient records, call [phone] during business hours, M-F 8:00 AM - 5:00 PM Central Time. Record requests for emergency care only can be directed to [phone] at any time.[facility] Allergies Active Allergy Reactions Criticality Noted Date Comments Hydrophilic Cream Rash Medium 05/16/2011 Penicillins Rash Medium 09/28/2024 Pollen Extracts Other (see comments) 11/11/2024 Congestion Medications * This document contains information received from the source organization and may not represent a complete record from that organization. multivitamin tablet Take 1 tablet by mouth daily. Active ALPRAZolam (Xanax) 0.5 mg tablet Take 1 tablet by mouth every 12 (twelve) hours as needed for anxiety. 5 Active estradioL (Estrace) 0.1 mg/g (0.01%) vaginal cream Insert 2 g into the vagina every 7 (seven) days. Has not started yet 5 Active apixaban (Eliquis) 5 mg tablet Take 1 tablet (5 mg total) by mouth 2 (two) times a day. 180 tablet 3 5 Active chlorpheniramin e maleate (CHLOR-TRIMETON ORAL) Take by mouth. Activ e acetaminophen (TylenoL) 500 mg tablet Take 1,000 mg by mouth every 6 (six) hours. Active hydrOXYzine (Atarax) 25 mg tablet Take 1 tablet by mouth every 8 (eight) hours as needed for anxiety. Active citalopram (CeleXA) 40 mg tablet Take 1 tablet by mouth daily. Active triamcinolone (Kenalog) 0.1 % cream Apply 1 Application topically 2 (two) times a day. Apply thin layer to areas of rash. 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 on 10/22/2024 Other Coding Director Current Drug Therapy 10/22/2024 Portal Vein Thrombosis 10/09/2024 Anticoagulant Therapy 10/09/2024 Mass Hepatic 10/09/2024 Cancer Uterus Endometrial Personal History 10/09 Malignant Neoplasm Of Uterus Endometrial 018 2017 Overview (10/22/2024): Patient diagnosed with uterine cancer at an outside institution in 2018. She received a total abdominal hysterectomy with oophorectomy. Nine months later she had recurrence, requiring chemotherapy, followed by recurrence, followed by radiation. Her course of radiation finished in July of 2019. Encounters Date Type Department Care Team Description 01/20/2025 Clinical Communication Department of Oncology in [place], [place] [address] [place] [address] Donna Gross R.N., O.C.N. SX - vision issues; SX - right leg weakness 01/14/2025 Clinical Communication Department of Oncology in [place], [place] [address] [place] [address] Donna Gross R.N., O.C.N. sx difficulty with bm 01/12/2025 2:00 PM CDT Telemedicine Department of Oncology in [address] [phone] Yossi Cabrera M.D., Ph.D. Claire Leger M.S., RDN, LD Melanoma Skin (HCC) (Primary Dx) 01/07/2025 2:00 PM CDT Infusion Department of Oncology in [address] [phone] Yossi Cabrera M.D., Ph.D. Melanoma Skin (HCC) (Primary Dx); Other [facility] Current Drug Therapy 01/07/2025 1:00 PM CDT Office Visit Department of Oncology in [address] [phone] Sara Rowan P.A.-C., M.S. Melanoma Skin (HCC) (Primary Dx); Secondary Malignant Neoplasm Brain (HCC); Secondary Malignant Neoplasm Soft Tissue (HCC); Other [facility] Current Drug Therapy; Myalgia 01/07/2025 Clinical Communication Department of Oncology in [address] [phone] Sara Rowan P.A.Giuliano., M.S. 01/06/2025 1:18 PM CDT - 01/06/2025 11:59 PM CDT Hospital Encounter Department of Laboratory Medicine in [address] [phone] Yossi Cabrera M.D., Ph.D. Other Chcf Current Drug Therapy; Melanoma Skin (HCC) Discharge Disposition: Home or Self Care 01/05/2025 1:45 PM CDT Clinical Communication Virtual Review in [address] [phone] Pre-visit Intake 01/02/2025 Clinical Communication Department of Oncology in [address] [phone] Donna Gross R.N., O.C.N. Sx - abdominal pain that comes and goes 12/25/2024 12:20 PM CDT - 12/25/2024 11:59 PM CDT Hospital Encounter Department of Laboratory Medicine in [address] [phone] Sara Rowan P.A.-C., M.S. Melanoma Skin (HCC); Secondary Malignant Neoplasm Brain (HCC); Secondary Malignant Neoplasm Soft Tissue (HCC); Other [facility] Current Drug Therapy Discharge Disposition: Home or Self Care 12/17/2024 3:00 PM CDT Infusion Department of Oncology in [address] [phone] Yossi Cabrera M.D., Ph.D. Melanoma Skin (HCC) (Primary Dx); Other Coding Director Current Drug Therapy 12/17/2024 1:40 PM CDT Office Visit Department of Oncology in [address] [phone] Sara Rowan P.A.-C., M.S. Melanoma Skin (HCC) (Primary Dx); Secondary Malignant Neoplasm Brain (HCC); Secondary Malignant Neoplasm Soft Tissue (HCC); Other Coding Director Current Drug Therapy; Rash; Anemia 12/16/2024 1:20 PM CDT - 12/16/2024 11:59 PM CDT Hospital Encounter Department of Laboratory Medicine in [address] [phone] Yossi Cabrera M.D., Ph.D. Other Coding Director Current Drug Therapy; Melanoma Skin (HCC) Discharge Disposition: Home or Self Care 12/10/2024 Clinical Communication Department of Oncology in [address] [phone] Donna Gross R.N., O.C.N. sx rash 12/09/2024 Clinical Communication Department of Oncology in [address] [phone] Yossi Cabrera M.D., Ph.D. 12/02/2024 Documentation Division of General Internal Medicine in [address] [phone] Naldo Anand M.D., Ph.D. Discharge Summary 12/01/2024 2:00 PM CDT Telemedicine Department of Oncology in [address] [phone] Sara Rowan P.A.-C., M.S. Claire Leger M.S., RDN, LD Melanoma Skin (HCC) (Primary Dx) 11/26/2024 1:00 PM CDT Infusion Department of Oncology in [address] [phone] Yossi Cabrera M.D., Ph.D. Melanoma Skin (HCC) (Primary Dx); Other [facility] Current Drug Therapy 11/26/2024 10:00 AM CDT Office Visit Department of Oncology in [address] [address] Yossi Cabrera M.D., Ph.D. Melanoma Skin (HCC) (Primary Dx); Dysuria 11/25/2024 2:30 PM CDT Clinical Communication Virtual Review in [address] [phone] Pre-visit Intake 11/25/2024 1:16 PM CDT - 11/25/2024 11:59 PM CDT Hospital Encounter Department of Laboratory Medicine in [address] [phone] Yossi Cabrera M.D., Ph.D. Other [facility] Current Drug Therapy; Melanoma Skin (HCC) Discharge Disposition: Home or Self Care 11/13/2024 Clinical Communication Department of Neurologic Surgery in [address] [phone] Shun Vital M.D. 11/13/2024 Clinical Communication Department of Oncology in [address] [phone] Donna Gross R.N., O.C.N. Sx - more shakiness 11/11/2024 12:02 PM CDT - 11/11/2024 1:45 PM CDT Surgery [facility] [address] [place] [phone] Shun Vital M.D. GAMMA KNIFE. 11/11/2024 8:14 AM CDT - 11/11/2024 3:19 PM CDT Hospital Encounter [facility] [address] [place] [phone] Shun Vital M.D. Secondary Malignant Neoplasm Brain (HCC) Discharge Disposition: Home or Self Care 11/11/2024 Orders Only Department of Neurologic Surgery in [place], [place] [address] [place] [phone] Elizabeth Irvin R.N. 11/10/2024 3:58 PM CDT - 11/10/2024 5:39 PM CDT Hospital Encounter Department of Radiation Oncology in [place], [place] [address] [place] [phone] Lindsay Vaughan M.D. Melanoma Skin (HCC) (Primary Dx); Malignant Neoplasm Of Uterus Endometrial (HCC); Secondary Malignant Neoplasm Brain (HCC) 11/10/2024 1:30 PM CDT Comprehensive Visit Department of Neurologic Surgery in [place], [place] [address] [place] [phone] Shun Vital M.D. Secondary Malignant Neoplasm Brain (HCC) (Primary Dx) 11/10/2024 Clinical Communication Department of Radiation Oncology in [place], [place] [address] [place] [phone] Lindsay Vaughan M.D. 11/10/2024 Orders Only Department of Neurologic Surgery in [place], [place] [address] [place] [phone] Elizabeth Irvin RBlu Melanoma Skin (HCC) (Primary Dx) 11/06/2024 Clinical Communication Department of Neurology in [place], [place] [address] [place] [phone] Elizabeth Irvin RBlu 11/05/2024 Clinical Communication Department of Oncology in [place], [place] [address] [place] [phone] Donna Gross R.N., O.C.N. Sx - thigh aching/wondering if ok to take Tylenol 11/05/2024 Orders Only Department of Neurologic Surgery in [place], [place] [address] [place] [phone] Elizabeth Irvin R.N. Secondary Malignant Neoplasm Brain (HCC) (Primary Dx) 11/04/2024 3:00 PM CDT Infusion Department of Oncology in [place], [place] [address] [place] [phone] Yossi Cabrera M.D., Ph.D. Melanoma Skin (HCC) (Primary Dx); Other Coding Director Current Drug Therapy 11/04/2024 2:00 PM CDT Education Department of Oncology in [place], [place] [address] [place] [phone] Yossi Cabrera M.D., Ph.D. Donna Gross R.N., O.C.N. 11/04/2024 1:00 PM CDT Office Visit Department of Oncology in [place], [place] [address] [place] [phone] Sara Rowan P.A.-Dar., M.S. Melanoma Skin (HCC) (Primary Dx); Secondary Malignant Neoplasm Brain (HCC); Secondary Malignant Neoplasm Soft Tissue (HCC); Other Coding Director Current Drug Therapy; Anticoagulant Therapy 11/04/2024 Orders Only Department of Oncology in [address] [phone] Sara Rowan P.Irwin.-Dar., M.S. Secondary Malignant Neoplasm Brain (HCC) (Primary Dx); Melanoma Skin (HCC) 11/03/2024 11:00 AM CDT Admin Visit Department of Oncology in [place], [place] [address] [place] [phone] 10/31/2024 Clinical Communication Department of Radiology, [facility] in [place], [place] [address] [place] [phone] Angelo Berger M.D. Follow-up (Post Procedure Phone Call ) 10/30/2024 11:51 AM CDT - 10/30/2024 3:59 PM CDT Hospital Encounter Department of Radiology, [facility] in [place], [place] [address] [place] [address] Yossi Cabrera M.D., Ph.D. Melanoma Skin (HCC) Discharge Disposition: Home or Self Care 10/23/2024 Orders Only Division of Rheumatology in [place], [place] [address] [place] [phone] Francisca Barron M.D., Ph.D. 10/22/2024 2:00 PM CDT Comprehensive Visit Department of Oncology in [place], [place] [address] [place] [phone] Yossi Cabrera M.D., Ph.D. Other Coding Director Current Drug Therapy (Primary Dx); Melanoma Skin (HCC); Malignant Neoplasm Of Uterus Endometrial (HCC) 10/22/2024 11:20 AM CDT - 10/22/2024 11:59 PM CDT Hospital Encounter Department of Laboratory Medicine and Pathology, [facility] in [place], [place] [address] [place] [address] Geremias Morrison M.B.B.S., M.D. Secondary Malignant Neoplasm Skin Melanoma (HCC) Discharge Disposition: Home or Self Care 10/21/2024 Clinical Communication Department of Oncology in [place], [place] [address] [place] [phone] Sara Rowan P.A.-C., M.S. 10/20/2024 Orders Only Department of Oncology in [place], [place] [address] [place] [phone] Sara Rowan P.A.-C., M.S. Secondary Malignant Neoplasm Skin Melanoma (HCC) (Primary Dx); Secondary Malignant Neoplasm Brain (HCC) 10/20/2024 Results Follow-Up Division of General Internal Medicine in [place], [place] [address] [place] [address] Aide Todd R.N. MR Brain without and with IV Contrast from Last 3 Months Immunizations Immunization Administration Dates Next Due DT, Pediatric 02/10/1999 Influenza, Seasonal, Injectable 03/19/2003 Tdap 05/16/2011 Social History Tobacco Use Types Packs/Day Years Used Date Smoking Tobacco: Never Passive Smoke Exposure: Never Smokeless Tobacco: Never Tobacco Cessation:Counseling Given: Not Answered Alcohol Use Standard Drinks/Week Comments Not Currently 1 (1 standard drink = 0.6 oz pur e alcohol) 1 glass wine per month [facility] Utilities Answer Date Recorded In the past 12 months has e [employer], gas, oil, or water [email or web address] threatened to shut off services in your [...] your living situation today? [facility] 09/30/2024 Comments No Sex and Gender Information Value Date Recorded Sex Assigned at Female 09/30/2024 9:25 AM CDT Legal Sex Female 12:05 PM CDT Gender Identity Female 09/30/2024 9:25 AM CDT Sexual Orientation Straight 09/30/2024 9: 25 AM CDT Last Filed Vital Signs Vital Sign Reading [...] Mass Index 25.21 01/07/2025 1:01 PM CDT Plan of Treatment Upcoming Encounters Date Type Department Care Team (Latest Contact Info) Description 01/23/2025 12:15 PM CDT Clinical Communication Virtual Review in [place], [place] [address] [place] [address] 01/23/2025 2:15 PM CDT Appointment Department of Radiology, [place], [place] [address] [place] [phone] Yossi Cabrera M.D., Ph.D. [address] [place] [phone] 01/26/2025 11:15 AM CDT [facility] [place] [place] [address] [place] [phone] Yossi Cabrera M.D., Ph.D. [address] [place] [phone] 01/26/2025 12:40 PM CDT Lab Department of Laboratory Medicine and Pathology, [facility] in [address] [phone] Yossi Cabrera M.D., Ph.D. [address] [place] [phone] 01/27/2025 1:40 PM CDT Office Visit Department of Oncology in [place], [place] [address] [place] [phone] Sara Rowan P.A.-C., M.S. [address] [place] [phone] 01/27/2025 2:30 PM CDT Infusion Department of Oncology in [place], [place] [address] [place] [address] Yossi Cabrera M.D., Ph.D. [address] [place] [address] 03/16/2025 10:30 AM MUD MIXER Office Visit Department of Oncology in [place], [place] [address] [place] [address] Yossi Cabrera M.D., Ph.D. [address] [place] [address] Health Maintenance Due Date Last Done Comments CT Colonography 1966 Cologuard 1966 Colonoscopy 1966 Colorectal Cancer Screening 1966 FIT 1966 HIV Screening 1966 Hepatitis C Screening 1966 Lipid (Cholesterol) Screening 1966 Mammogram 1966 COVID-19 Vaccine (#1) 1971 Hepatitis A Vaccines (1 of 2 - Risk 2-dose series) 1985 Hepatitis B Vaccines (1 of 3 - 19+ 3-dose series) 1985 Pneumococcal vaccine (50+ years) (1 of 2 - PCV) 1985 Zoster Vaccines (1 of 2) 1985 DTaP,Tdap,and Td Vaccines (4 - Td or Tdap) 05/16/2021 05/16/2011, 04/09/2010, 02/10/1999 Depression Screening (Annual PHQ-2) 04/09/2024 Influenza Vaccine (#1) 2024 03/19/2003 Fasting Glucose for Diabetes Screening 01/07/2028 01/06/2025, 12/16/2024, 11/25/2024, Additional history exists HPV Vaccines Aged Out No longer eligi ble based on patient's age to complete this topic IPV Vaccines Aged Out No longer eligi ble based on patient's age to complete this topic Medical Devices Implanted Type Area Software Product Manager Device Identifier Shelf Expiration Date Model / Serial / Lot Breast Implant Breast Implant Bilateral: Breast Procedures Procedure Name Priority Date/Time Associated Diagnosis Comments CREATINE KINASE (CK), S Routine 01/07/2025 3:29 PM CDT Melanoma Skin (HCC) Secondary Malignant Neoplasm Brain (HCC) Secondary Malignant Neoplasm Soft Tissue (HCC) Other [facility] Current Drug Therapy THYROID FUNCTION CASCADE, S Routine 01/06/2025 1:25 PM CDT Other Ch[facility] Current Drug Therapy Melanoma Skin (HCC) COMPREHENSIVE METABOLIC PANEL, S/P Routine 01/06/2025 1:25 PM CDT Other Ch[facility] Current Drug Therapy Melanoma Skin (HCC) CBC WITH DIFFERENTIAL, B Routine 01/06/2025 1:25 PM CDT Other Coding Director Current Drug Therapy Melanoma Skin (HCC) CBC WITH DIFFERENTIAL, B Routine 12/25/2024 12:26 PM CDT Melanoma Skin (HCC) Secondary Malignant Neoplasm Brain (HCC) Secondary Malignant Neoplasm Soft Tissue (HCC) Other Chcf Current Drug Therapy AURA ONCOEXTRA-GERMLINE Routine 12/16/2024 2:18 PM CDT Melanoma Skin (HCC) THYROID FUNCTION CASCADE, S Routine 12/16/2024 2:18 PM CDT Other Coding Director Current Drug Therapy Melanoma Skin (HCC) COMPREHENSIVE METABOLIC PANEL, S/P Routine 12/16/2024 2:18 PM CDT Other Coding Director Current Drug Therapy Melanoma Skin (HCC) CBC WITH DIFFERENTIAL, B Routine 12/16/2024 2:18 PM CDT Other Coding Director Current Drug Therapy Melanoma Skin (HCC) DIPSTICK, U Routine 11/26/2024 12:41 PM CDT AZ OSMOLALITY ASSAY URINE Routine 11/26/2024 12:41 PM CDT MICROSCOPIC MANUAL Routine 11/26/2024 12 :41 PM CDT PH, RANDOM, U Routine 11/26/2024 12:41 PM CDT URINALYSIS WITH MICROSCOPIC Routine 11/26/2024 12:41 PM CDT Dysuria BACTERIAL CULTURE, AEROBIC + SUSC, URINE Routine 11/26/2024 12:41 PM CDT Dysuria THYROID FUNCTION CASCADE, S Routine 11/25/2024 1:28 PM CDT Other Ch[facility] Current Drug Therapy Melanoma Skin (HCC) COMPREHENSIVE METABOLIC PANEL, S/P Routine 11/25/2024 1:28 PM CDT Other Coding Director Current Drug Therapy Melanoma Skin (HCC) CBC WITH DIFFERENTIAL, B Routine 11/25/2024 1:28 PM CDT Other Coding Director Current Drug Therapy Melanoma Skin (HCC) ARIA DAILY TREATMENT INFORMATION Routine 11/11/2024 2:08 PM CDT MR BRAIN WITH IV CONTRAST RAD - Routine (most inpatients and all outpatients) 11/11/2024 10:53 AM CDT Secondary Malignant Neoplasm Brain (HCC) APPLICATION STEREOTACTIC HEAD FRAME 11/11/2024 9:16 AM CDT Secondary Malignant Neoplasm Brain (HCC) GAMMA KNIFE 11/11/2024 9:16 AM CDT Secondary Malignant Neoplasm Brain (HCC) DIPSTICK, U Routine 11/04/2024 11:55 AM CDT PH, U Routine 11/04/2024 11:55 AM CDT OSMOLALITY, U Routine 11/04/2024 11:55 AM CDT MICROSCOPIC AUTOMATED Routine 11/04/2024 11:55 AM CDT URINALYSIS WITH MICROSCOPIC Routine 11/04/2024 11:55 AM CDT Other Coding Director Current Drug Therapy Melanoma Skin (HCC) C3 AND C4 WITH [id number], IGG, S Routine 11/04/2024 11:41 AM CDT Other [facility] Current Drug Therapy Melanoma Skin (HCC) AB TO EXTRACTABLE NUCLEAR AG EVAL, S Routine 11/04/2024 11:41 AM CDT Other [facility] Current Drug Therapy Melanoma Skin (HCC) DSDNA AB, IGG, S Routine 11/04/2024 11:4 1 AM CDT Other [facility] Current Drug Therapy Melanoma Skin (HCC) ANTINUCLEAR AB, HEP-2, SUBSTRATE, S Routine 11/04/2024 11:41 AM CDT Other Ch[facility] Current Drug Therapy Melanoma Skin (HCC) THYROID FUNCTION CASCADE, S Routine 11/04/2024 11:41 AM CDT Other [facility] Current Drug Therapy Melanoma Skin (HCC) COMPREHENSIVE METABOLIC PANEL, S/P Routine 11/04/2024 11:41 AM CDT Other Coding Director Current Drug Therapy Melanoma Skin (HCC) CBC WITH DIFFERENTIAL, B Routine 11/04/2024 11:41 AM CDT Other Ch[facility] Current Drug Therapy Melanoma Skin (HCC) AURA ONCOEXTRA, TIS Routine 10/30/2024 3 :02 PM CDT Melanoma Skin (HCC) US LIVER BIOPSY RAD - Routine (most inpatients and all outpatients) 10/30/2024 1:46 PM CDT Melanoma Skin (HCC) CYTOLOGY FINE NEEDLE ASPIRATION (INCLUDES CORE BIOPSIES Timed 10/30/2024 1:25 PM CDT Melanoma Skin (HCC) COMPREHENSIVE METABOLIC PANEL, S/P Routine 10/22/2024 12:17 PM CDT Secondary Malignant Neoplasm Skin Melanoma (HCC) CBC WITH DIFFERENTIAL, B Routine 10/22/2024 12:17 PM CDT Secondary Malignant Neoplasm Skin Melanoma (HCC) LACTATE DEHYDROGENASE (LD), S Routine 10/22/2024 12:17 PM CDT Secondary Malignant Neoplasm Skin Melanoma (HCC) from Last 3 Months Results * CK (Creatine Kinase) (01/07/2025 3:29 PM CDT) Pathologist [facility] Creatine Kinase (CK), S 46 26 - 192 U/L 01/07/2025 4:21 PM CDT DT Blood (Blood, Venous) 01/07/2025 3:29 PM CDT 01/07/2025 3:34 PM CDT Sara Rowan P.A.-C. M.S. LAB BLOOD ADD-ON Final Result [facility] [address] [place] [address], [facility] [address] [place] [address] * Thyroid Function [place] (01/06/2025 1:25 PM CDT) Only the most recent of4 resultswithin the time period is included. [facility] TSH, Sensitive 3.2 0.3 - 4.2 mIU/L 01/06/2025 2:36 PM CDT CNOH Blood (Blood, Venous) 01/06/2025 1:25 PM CDT 01/06/2025 1:27 PM CDT Yossi Cabrera M.D., Ph.D. LAB BLOOD ADD-ON Fin al Result [facility] [address] [place] [address], [place] [facility] in [address] [address] * (ABNORMAL) CBC with Differential, Blood (01/06/2025 1:25 PM CDT) Only the most recent of6 resultswithin the time period is included. [facility] Hemoglobin 10.6(L) 11.6 - 15.0 g/dL 01/06/2025 [...] LAB BLOOD ADD-ON Fin al Result [facility] [address] [place] [address], [facility] CNFL [facility] [place] [address] * (ABNORMAL) Comprehensive Metabolic Panel (01/06/2025 1:25 PM CDT) Only the most recent of5 resultswithin the time period is included. Potassium, P 4.6 3.6 - 5.2 mmol/L [...] LAB BLOOD ADD-ON Fin al Result [facility] [address] [place] [address], [facility] RDWG [facility] in [place] [address] [facility] [place] [address] * Aura Exact OncoExTra-[place] - Sent Out Lab (12/16/2024 2:18 PM CDT) Pathologist [facility] Aura OncoExtra-Lazaro mline Collected, Sent to Reference Lab DEFAULT 12/17/2024 7:28 AM CDT AURA Blood (Blood, Peripheral Draw) 12/16/2024 2:18 PM CDT 12/17/2024 7:28 AM CDT Yossi Cabrera M.D., Ph.D. LAB GENETIC TESTING Final Result Performing Organization Address City/[facility]/ZIP Co de Phone Number [facility] [address] [place] [address], [facility] AURA [address] [place] [address] * Osmolality, Urine (11/26/2024 12:41 PM CDT) Osmolality, U 516 150 - 1150 mOsm/kg 11/26/2024 1:47 PM CDT DTL Urine 11/26/2024 12:4 1 PM CDT 11/26/2024 1:00 PM CDT us Yossi Cabrera M.D., Ph.D. LAB URINE ORDERABLES Final Result [facility] [address] [place] [address] * (ABNORMAL) Dipstick, Urine (11/26/2024 12:41 PM CDT) Only the most recent of2 resultswithin the time period is included. Hemoglobin, QL, U Moderate(A) Negative 11/26/2024 1:25 PM CDT DTL Leukocyte Esterase, U Negative Negative 11/26/2024 1:25 PM CDT DTL Nitrite, U Negative Negative 11/26/2024 1:25 PM CDT DTL Ketone, U Negative Negative mg/dL 11/26/2024 1:25 PM CDT DTL Glucose, U Negative Negative mg/dL 11/26/2024 1:25 PM CDT DTL Urine 11/26/2024 12:4 1 PM CDT 11/26/2024 1:00 PM CDT us Yossi Cabrera M.D., Ph.D. LAB URINE ORDERABLES Final Result [facility] [address] [place] [address] * pH, Random, Urine (11/26/2024 12:41 PM CDT) pH, Random, U 7.5 4.5 - 8.0 11/26/2024 1:47 PM CDT DTL Urine 11/26/2024 12:4 1 PM CDT 11/26/2024 1:00 PM CDT us Yossi Cabrera M.D., Ph.D. LAB URINE ORDERABLES Final Result [facility] [address] [place] [address], [place] [address] * (ABNORMAL) Microscopic Manual (11/26/2024 12:41 PM CDT) Microscopy Abnormal 11/26/2024 2:23 PM CDT DTL RBC 41-50(A) <3 /hpf 11/26/2024 2:23 PM CDT DTL Dysmorphic RBC <25 <25 % 11/26/2024 2:23 PM CDT DTL WBC 1-3 /hpf 11/26/2024 2:23 PM CDT DTL Comment: ----REFERENCE VALUE---- <4 (Males) <11 (Females) Crystals Calcium Oxalate crystals present 11/26/2024 2:23 PM CDT DTL Urine 11/26/2024 12:4 1 PM CDT 11/26/2024 1:00 PM CDT us Yossi Cabrera M.D., Ph.D. LAB URINE ORDERABLES Final Result Performing Organization Address [facility] Co de Phone Number [facility] [address] [place] [address] * Bacterial Culture, Aerobic + Susceptibility, Urine (11/26/2024 12:41 PM CDT) Pathologist [facility] Urine Culture Organism present <10,000 cfu/mL, susceptibilities not performed per laboratory criteria. 11/27/2024 7:35 AM CDT DTL Urine (Urine, Midstream) 11/26/2024 12:41 PM CDT 11/26/2024 1:25 PM CDT Comment:Specimen Source Site : Urine us Yossi Cabrera M.D., Ph.D. LAB MICROBIOLOGY - G ENERAL ORDERABLES Final Result Performing Organization Address City/[facility] Co de Phone Number [facility] [address] [place] [address], [facility] [address] [place] [address] * (ABNORMAL) Urinalysis, with Microscopic: Urine, Midstream (11/26/2024 12:41 PM CDT) Only the most recent of2 resultswithin the time period is included. Source Urine, Urine, Midstream 11/26/2024 1:00 PM CDT DTL Color, U Yellow 11/26/2024 1:00 PM CDT DTL Clarity, U Cloudy(A) 11/26/2024 1:00 PM CDT DTL Protein, U 7 <26 mg/dL 11/26/2024 1:50 PM CDT DTL Protein/Osmol ality 0.14 <0.42 ratio 11/26/2024 1:50 PM CDT DTL Predicted 24 HR Protein, U 109 <229 mg/24 h 11/26/2024 1:50 PM CDT DTL Predicted Range 27-442 mg/24 h 11/26/2024 1:50 PM CDT DTL Comment Micro done on <10 mL 11/26/2024 2:12 PM CDT DTL Urine (Urine, Midstream) 11/26/2024 12:41 PM CDT 11/26/2024 1:00 PM CDT Yossi Cabrera M.D., Ph.D. LAB URINE ORDERABLES Final Result Performing Organization Address City/State/[facility] Co de Phone Number [facility] [address] [place] [address], [facility] [address] [place] [address] * Aria Daily Treatment Information (11/11/2024 2:08 PM CDT) Course ID [id number] MCCOY ARIA Course Intent Palliative MCCOY ARIA Course Start Date 11/11/2024 11:30 CDT MCCOY ARIA First Treatment Date 11/11/2024 14:08 CDT MCCOY ARIA Last Treatment Date 11/11/2024 14:08 CDT [facility]OY ARIA Treatment [facility] 1g_RtFrontal [facility] Dosage Given to Date cGy [facility] Session Dosage Given [facility] Plan ID [id number] M[facility]OY ARIA Fractions Treated to Date 1 M[facility]OY ARIA Planned Total Fractions 1 [facility] Prescribed Dose Per Fraction 1999 [facility] Prescription Dose in cGy 1999 [facility] Plan Primary Reference Point 1g_RtFrontal [facility] 11/11/2024 2:08 PM CDT us Provider Not In System RADIATION ONCOLOGY ORDERA BLES Final Result DARIUS HIRSCH na * MR Brain with IV Contrast (11/11/2024 10:53 AM CDT) Anatomical Region Laterality Modality Head, Brain, Neuroradiology RST LOS, Neuroradiology ARZ LOS, Neuroradiology FLA LOS N/A Magnetic Resonance Impressions 11/11/2024 11:07 AM CDT Interval increase in size and number of cerebral metastases. Narrative 11/11/2024 11:07 AM CDT EXAM: MR BRAIN WITH IV CONTRAST COMPARISON: MRI brain without and with IV gadolinium 10/14/2024. FINDINGS: History of metastatic melanoma. Interval enlargement of multiple cerebral metastasis. -21 mm metastasis involving the anterior medial left occipital lobe (series 2, image 80). -14 mm metastasis involving the right superior frontal gyrus (series 2, image 35). -22 mm metastasis involving the posterior medial right temporal lobe (series 2, image 105). This has increased substantially since 10/14/2024, likely due in part to interval hemorrhage. -3 mm metastasis inferior left frontal gyrus (series 2, image 77). -Probable 3 mm metastasis involving the parasagittal inferior left parietal lobe just above the dominant left occipital metastasis best appreciated (series 2 image 67). -Probable 1-2 mm metastasis involving the left frontal pole (series 2, image 92). This was not definitely visualized on 10/14/2024. No additional metastases are identified. Procedure Note Yuri Simpson M.D. - 11/11/2024 EXAM: MR BRAIN WITH IV CONTRAST COMPARISON: MRI brain without and with IV gadolinium 10/14/2024. FINDINGS: History of metastatic melanoma. Interval enlargement of multiplecerebral metastasis. -21 mm metastasis involving the anterior medial left occipital lobe(series 2, image 80). -14 mm metastasis involving the right superior frontal gyrus (series 2,image 35). -22 mm metastasis involving the posterior medial right temporal lobe(series 2, image 105). This has increased substantially since 10/14/2024,likely due in part to interval hemorrhage. -3 mm metastasis inferior left frontal gyrus (series 2, image 77). -Probable 3 mm metastasis involving the parasagittal inferior leftparietal lobe just above the dominant left occipital metastasis bestappreciated (series 2 image 67). -Probable 1-2 mm metastasis involving the left frontal pole (series 2,image 92). This was not definitely visualized on 10/14/2024. No additional metastases are identified. IMPRESSION: Interval increase in size and number of cerebral metastases. Shun Vital M.D. IMG MRI PROCEDURES Final Re sult * Microscopic Automated (11/04/2024 11:55 AM CDT) Microscopy Normal 11/04/2024 1:20 PM CDT DTL RBC None Seen <3 /hpf 11/04/2024 1:20 PM CDT DTL WBC None Seen /hpf 11/04/2024 1:20 PM CDT DTL Comment: ----REFERENCE VALUE---- <4 (Males) <11 (Females) Urine 11/04/2024 11:5 5 AM CDT 11/04/2024 12:34 PM CDT Yossi Cabrera M.D., Ph.D. LAB URINE ORDERABLES Final Result [facility] [address] [place] [address], [facility] DTL [facility] [address] [place] [address] * pH, Urine (11/04/2024 11:55 AM CDT) pH, U 6.8 4.5 - 8.0 11/04/2024 1:0 9 PM CDT DTL Urine 11/04/2024 11:5 5 AM CDT 11/04/2024 12:34 PM CDT us Yossi Cabrera M.D., Ph.D. LAB URINE ORDERABLES Final Result Performing Organization Address City/[facility]/ZIP Co de Phone Number [facility] [address] [place] [address] * Osmolality, Urine (11/04/2024 11:55 AM CDT) Pathologist [facility] Osmolality, U 233 150 - 1150 mOsm/kg 11/04/2024 1:09 PM CDT DTL Urine 11/04/2024 11:5 5 AM CDT 11/04/2024 12:34 PM CDT us Yossi Cabrera M.D., Ph.D. LAB URINE ORDERABLES Final Result Performing Organization Address [facility] Co de Phone Number [facility] [address] [place] [address] * Complement C3 and C4 with Anti-C1q Antibodies (11/04/2024 11:41 AM CDT) [facility] Complement C3, S 164 75 - 175 mg/dL 11/04/2024 3:53 PM CDT [facility] Complement C4, S 40 14 - 40 mg/dL 11/04/2024 3:53 PM CDT [facility] Anti-C1q Antibodies, IgG, S <5 <20 (Negative ) U/mL 11/05/2024 8:13 PM CDT [facility] Comment: ----ADDITIONAL INFORMATION---- This test was developed and its performance characteristics determined by [facility] in a manner consistent with CLIA requirements. This test has not been cleared or approved by the U.S. Food and Drug Administration. Blood (Blood, Venous) 11/04/2024 11:41 AM CDT 11/04/2024 2:59 PM CDT Narrative [facility] - 11/05/2024 8:13 PM CDT Specimen Information: Specimen ID: [id number] Specimen Type: Blood Specimen Collection Start Date: 11/04/2024 11:41 AM Specimen Received Date: 11/04/2024 2:59 PM Specimen ID: [id number] Specimen Type: Blood Specimen Collection Start Date: 11/04/2024 11:41 AM Specimen Received Date: 11/04/2024 2:58 PM Yossi Cabrera M.D., Ph.D. LAB BLOOD ADD-ON Fin al Result Performing Organization Address City/[facility] Co de Phone Number [facility] [address] [place] [address] [place] [id number] [place] [address] * Double-Stranded DNA (dsDNA) Antibodies, IgG (11/04/2024 11:41 AM CDT) Pathologist [facility] dsDNA Ab, IgG, S <10 0 - 99 IU/mL 11/05/2024 1:26 PM CDT [facility] Comment: Interpretation: Negative (<100) Negative for anti-dsDNA IgG antibodies. Results do not rule out a diagnosis of systemic lupus erythematosus (SLE). Consider testing for anti-dsDNA IgG using Crithidia luciliae by indirect immunofluorescence, if clinically indicated. Blood (Blood, Venous) 11/04/2024 11:41 AM CDT 11/04/2024 2:58 PM CDT us Yossi Cabrera M.D., Ph.D. LAB BLOOD ADD-ON Fin al Result Performing Organization Address [facility] Co de Phone Number [facility] [address] [place] [address] [facility] [address] [place] [address] * Antinuclear Antibodies, HEp-2 Substrate, IgG, Serum (11/04/2024 11:41 AM CDT) Antinuclear Ab, HEp-2 Substrate, S <1:80 (Negative ) <1:80 (Negativ e) 11/04/2024 10:10 PM CDT [facility] Comment: ----ADDITIONAL INFORMATION---- Method: Immunofluorescence using HEp-2 cellular substrate. Blood (Blood, Venous) 11/04/2024 11:41 AM CDT 11/04/2024 2:54 PM CDT Yossi Cabrera M.D., Ph.D. LAB BLOOD ADD-ON Fin al Result Performing Organization Address City/[facility]/ZIP Co de Phone Number [facility] [address] [place] [place] [address] [facility] [address] [place] [address] * Antibody to Extractable Nuclear Antigen Evaluation (11/04/2024 11:41 AM CDT) SS-A/Ro Ab, IgG, S 0.2 <1.0 (Negative) U 11/04/2024 3:47 PM CDT [facility] SS-B/La Ab, IgG, S <0.2 <1.0 (Negative) U 11/04/2024 3:47 PM CDT [facility] Sm Ab, IgG, S 0.2 <1.0 (Negative) U 11/04/2024 3:47 PM CDT [facility] SIEBEL ADMINISTRATOR Ab, IgG, S 0.2 <1.0 (Negative) U 11/04/2024 3:47 PM CDT [facility] Scl 70 Ab, IgG, S <0.2 <1.0 (Negative) U 11/04/2024 3:47 PM CDT [facility] Abida 1 Ab, IgG, S <0.2 <1.0 (Negative) U 11/04/2024 3:47 PM CDT [facility] Blood (Blood, Venous) 11/04/2024 11:41 AM CDT 11/04/2024 2:54 PM CDT Yossi Cabrera M.D., Ph.D. LAB BLOOD ADD-ON Fin al Result Performing Organization Address City/[facility]/ZIP Co de Phone Number [facility] [address] [place] [address] [facility] [address] [place] [address] * Aura Exact OncoExTra, Tissue - Sent Out Lab (10/30/2024 3:02 PM CDT) Melissa OncoExtra, Tis Collected, Sent to Reference Lab DEFAULT 12/02/2024 11:14 AM CDT [facility] Tissue (Other, Specify in Comments) 10/30/2024 3:02 PM CDT 12/02/2024 11:14 AM CDT us Yossi Cabrera M.D., Ph.D. LAB GENETIC TESTING Final Result [facility] [address] [place] [address], [facility] [address] [place] [address] * US Liver Biopsy (10/30/2024 1:46 PM CDT) Anatomical Region Laterality Modality Abdomen, Ultrasound RST LOS, Ultrasound ARZ LOS, Procedure FLA LOS, Abdominal FLA LOS, Procedural, Procedural NWWI LOS N/A Ultrasound Impressions 10/30/2024 2:20 PM CDT Ultrasound-guided liver mass biopsy. EP Narrative 10/30/2024 2:20 PM CDT EXAM: US LIVER BIOPSY PRE-PROCEDURE: Patient seen, evaluated, history reviewed, and approved for sedation. Airway, heart, and lung exam satisfactory for sedation. Discussed risks, benefits, alternatives for procedure, and/or sedation. The roles and responsibilities of care team members, residents, and fellows were discussed. Patient understands information and questions answered. Informed consent obtained from the patient. Immediately prior to starting the procedure, in the presence of the assisting personnel, a procedural pause was conducted to verify correct patient identity and verification of procedure to be performed, and as applicable, correct side and site, correct patient position, availability of implants, special equipment, or special requirements, and all image and specimen identification data. INTRAPROCEDURE: Moderate sedation was administered by sedation nurse under my supervision. The patient was continuously monitored with real time oxygen saturation, heart rate, ECG rhythm strip and blood pressure throughout administration of the sedation and performance of the procedure. The total intra-procedural sedation time was: 15 minutes. TECHNIQUE: Sterile. 1% lidocaine for local anesthesia. Ultrasound guidance. Location: A dominant mass in the left hepatic lobe was targeted for biopsy, and corresponds to the anterior subcapsular mass seen on series [address] abdomen 09/26/2024. Needle size: 18-gauge core needle biopsies obtained via 17-gauge introducer needle Number of passes: 6 Complication: None. Blood loss: None. Known portal vein thrombus is seen to better advantage on CT abdomen 09/26/2024 and also PET/CT 10/01/2024 where it demonstrated associated FDG avidity concerning for underlying tumor thrombus. PATIENT INSTRUCTIONS: Patient may be dismissed from the radiology department when dismissal criteria met. POST-PROCEDURE DIAGNOSIS: Liver mass biopsy. Procedure Note Angelo Berger M.D. - 10/30/2024 EXAM: US LIVER BIOPSY PRE-PROCEDURE: Patient seen, evaluated, history reviewed, and approved forsedation. Airway, heart, and lung exam satisfactory for sedation.Discussed risks, benefits, alternatives for procedure, and/or sedation.The roles and responsibilities of care team members, residents, and fellows were discussed. Patient understandsinformation and questions answered. Informed consent obtained from thepatient. Immediately prior to starting the procedure, in the presence ofthe assisting personnel, a procedural pause was conducted to verify correct patient identity and verificationof procedure to be performed, and as applicable, correct side and site,correct patient position, availability of implants, special equipment, orspecial requirements, and all image and specimen identification data. INTRAPROCEDURE: Moderate sedation was administered by sedation nurse undermy supervision. The patient was continuously monitored with real timeoxygen saturation, heart rate, ECG rhythm strip and blood pressurethroughout administration of the sedation and performance of the procedure. The total intra-procedural sedation timewas: 15 minutes. TECHNIQUE: Sterile. 1% lidocaine for local anesthesia. Ultrasoundguidance. Location: A dominant mass in the left hepatic lobe was targeted forbiopsy, and corresponds to the anterior subcapsular mass seen on series 8image [address] abdomen 09/26/2024. Needle size: 18-gauge core needle biopsies obtained via 17-gaugeintroducer needle Number of passes: 6 Complication: None. Blood loss: None. Known portal vein thrombus is seen to better advantage on CT abdomen09/26/2024 and also PET/CT 10/01/2024 where it demonstrated associated FDGavidity concerning for underlying tumor thrombus. PATIENT INSTRUCTIONS: Patient may be dismissed from the radiologydepartment when dismissal criteria met. POST-PROCEDURE DIAGNOSIS: Liver mass biopsy. IMPRESSION: Ultrasound-guided liver mass biopsy. EP us Yossi Cabrera M.D., Ph.D. IMG US PROCEDURES Fi nal Result * (ABNORMAL) Cytology Fine Needle Aspiration (including core biopsies) (10/30/2024 1:25 PM CDT) (A) 10:23 AM CDT DTL Report electronically signed by Kevin Slater M.D. I verify that I have examined all relevant slides/materia ls for the specimen(s) and rendered or confirmed the diagnosis. (A) 11/03/2024 10:23 AM CDT DTL Gross Description Received 6 alcohol-fixed smears and tissue. Additionally, received in formalin labeled with the patient's name, medical record number and liver, mass are multiple pale white-red softtissue cores and fragments, measuring 0.1 cm in average diameter and ranging from 0.2-1.4 cm in length. The specimens are submitteden toto as follows: A1: Three cores A2: Three cores and two fragments A3: One core and five fragments A4: Multiple fragments Grossed by NW. (A) 11/03/2024 10:23 AM CDT DTL Source A. Liver, Mass, fine needle aspiration(A) 11/03/2024 10:23 AM CDT DTL Addendum Aura Exact OncoExtra has been requested by Dr. Yossi Cabrera and will be performed on block A1 at [facility], [place], [place]. Signed by Silverio De Leon M.D. 12/02/2024 8:13 AM (A) 12/02/2024 8:13 AM CDT DTL Comment:REVISED RESULTS Interpretation A. Liver, Mass, fine needle aspiration (smears/core biopsy): Positive for malignancy. Metastatic Melanoma Immunohistoche mical stains were performed at [facility] (block A1). The neoplastic cells are positive for SOX10, while negative for AE1/AE3 (A) 12/02/2024 8:13 AM CDT DTL Tissue (Liver) 10/30/2024 1: 25 PM CDT Yossi Cabrera M.D., Ph.D. LAB SURG PATH ORDERA BLES Edited Result - Final Performing Organization Address [facility] Co de Phone Number [facility] [address] [place] [address], [address] [address] * (ABNORMAL) LD (Lactate Dehydrogenase) (10/22/2024 12:17 PM CDT) Lactate Dehydrogenase (LD), S 467(H) 122 - 222 U/L 10/22/2024 1:49 PM CDT DTL Blood (Blood, Venous) 10/22/2024 12:17 PM CDT 10/22/2024 1:00 PM CDT Geremias Brown M.D. LAB BLOOD NON ADD-O N Final Result Performing Organization Address [facility] Co de Phone Number [address] [address], [address] [address] from Last 3 Months Additional Health Concerns Infection Onset Date Last Indicated Protective Environment 11/04/2024 Insurance [facility] Care Teams Jet Handler Relationship Specialty Start Date End Date Elsewhere, Pcp PCP - General Internal Medicine 09/28/24
--- OUTSIDE RECORDS SUMMARY | 2025-01-20 14:56 | XMS_ITS ---
Author Name Interface, [id number] lity Address [place] [address] [facility] Address More breakthroughs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 [address] [place] [address]. [place] 08/15 CMP BUN mg/dL 7.0 18.0 12 [facility]. [address] [place] [address]. [place] 08/15 CMP Creat inine , mg/dL mg/dL 0.55 1.3 0.83 [facility]. [address] [place] [address]. [place] 08/15 CMP GFR estim ate ml/min /1.73m 2 83 Result based on the eGFR 2020 calculati on.60-89 mL/min/1. 73m^2 without kidney damage may be normal.60 -89 mL/min/1. 73m^2 for 3 months or more, along with kidney damage, mayindica te early kidney disease.C emiliano n modified to the 2020 formula effective 07/08/22. [facility]AL [facility]. [address] [place] [address]. [place] 08/15 CMP BUN/C reati nine ratio 6.0 25.0 14.46% [facility]. [address] [place] [address]. [place] 08/15 CMP Sodiu m mmol/L 136.0 145.0 141 [facility]. [address] [place] [address]. [place] 08/15 CMP Potas sium mmol/L 3.5 5.1 4.2 [facility]. [address] [place] [address]. [place] 08/15 CMP Chlor ben mmol/L 97.0 107.0 103 [facility]. [address] [place] [address]. [place] 08/15 CMP CO2 mmol/L 21.0 32.0 29 [facility]. [address] [place] [address]. [place] 08/15 CMP Calci um mg/dL 8.5 10.1 8.7 [facility]. [address] [place] [address]. [place] 08/15 CMP Total prote in g/dL 6.4 8.2 7.7 [facility]. [address] [place] [address]. [place] 08/15 CMP Album in g/dL 3.4 5.0 3.4 [facility]. [address] [place] [address]. [place] 08/15 CMP Globu shiela g/dL 2.2 4.2 4.3 High [facility]. [address] [place] [address]. [place] 08/15 CMP A/G ratio 0.8 2.0 0.8% FINAL [facility]. [address] [place] [address]. [place] 08/15 CMP Bilir ubin, total mg/dL 0.2 1.0 0.30 FINAL [facility]. [address] [place] [address]. [place] 08/15 CMP Alkal ine phosp hatas e U/L 46.0 116.0 69 FINAL [facility]. [address] [place] [address]. [place] 08/15 CMP AST/S GOT U/L 15.0 37.0 23 FINAL [facility]. [address] [place] [address]. [place] 08/15 CMP ALT/S GPT U/L 14.0 59.0 34 FINAL [facility]. [address] [place] [address]. [place] 08/15 CA 125 panel CA 125, Sieme ns ICMA UNITS/ ML 2.0 30.2 12.1 CA 125 values from different assay methods can not be used interchan geably.Th is assay was performed using the SpeechCycleass ay system. FINAL [facility]. [address] [place] [address]. [place] 08/15 CBC w/ auto diff WBC 10^3/u L 4.8 10.8 4.1 Low FINAL [facility] Whole Blood [facility]. [address] [place] [address] CLIA#[id number] 08/15 CBC w/ auto diff RBC 10^6/u L 4.2 5.4 4.13 Low FINAL [facility] Whole Blood [facility]. [address] [place] [address] CLIA#[id number] 08/15 CBC w/ auto diff HGB g/dL 12.0 16.0 13.2 FINAL [facility] Whole Blood [facility]. [address] [place] [address] CLIA#[id number] 08/15 CBC w/ auto diff HCT % 37.0 47.0 39.6 FINAL [facility] Whole [facility]. [address] [place] [address] CLIA#[id number] 08/15 CBC w/ auto diff MCV fL 81.0 99.0 95.90 FINAL [facility]. [address] [place] [address] CLIA#[id number] 08/15 CBC w/ auto diff MCH pg 27.0 31.0 32.00 High FINAL [facility] Whole [facility]. [address] [place] [address] CLIA#[id number] 08/15 CBC w/ auto diff MCHC g/dL 33.0 37.0 33.30 FINAL [facility] Whole [facility]. [address] [place] [address] CLIA#[id number] 08/15 CBC w/ auto diff RDW % 10.5 14.5 14.40 FINAL [facility]. [address] [place] [address] CLIA#[id number] 08/15 CBC w/ auto diff PLT 10^3/u L 130.0 400.0 244 FINAL [facility]. [address] [place] [address] CLIA#[id number] 08/15 CBC w/ auto diff MPV fL 9.4 12.3 8.3 Low FINAL [facility] Whole [facility]. [address] [place] [address] CLIA#[id number] 08/15 CBC w/ auto diff Jimi % % 40.0 77.0 47.3 FINAL [facility] Whole Blood [facility]. [address] [place] [address] CLIA#[id number] 08/15 CBC w/ auto diff LY % % 15.0 41.0 34.6 FINAL [facility] Whole [facility]. [address] [place] [address] CLIA#[id number] 08/15 CBC w/ auto diff MO % % 3.0 11.0 17.2 High FINAL [facility]. [address] [place] [address] CLIA#[id number] 08/15 CBC w/ auto diff EO % % 0.0 3.0 0.0 FINAL [facility]. [address] [place] [address] CLIA#[id number] 08/15 CBC w/ auto diff BA % % 0.0 1.0 0.70 FINAL [facility] Whole [facility]. [address] [place] [address] CLIA#[id number] 08/15 CBC w/ auto diff IG % % 0.0 0.5 0.20 FINAL [facility]. [address] [place] [address] CLIA#[id number] 08/15 CBC w/ auto diff Jimi # (ANC) 10^3/u L 1.5 6.5 1.9 FINAL [facility] Whole Blood [facility]. [address] [place] [address] CLIA#[id number] 08/15 CBC w/ auto diff LY # 10^3/u L 1.2 3.4 1.4 FINAL [facility] Whole Blood [facility]. [address] [place] [address] CLIA#[id number] 08/15 CBC w/ auto diff MO # 10^3/u L 0.0 0.8 0.7 FINAL [facility] Whole Blood [facility]. [address] [place] [address] CLIA#[id number] 08/15 CBC w/ auto diff EO # 10^3/u L 0.0 0.3 0.0 FINAL [facility] Whole Blood [facility]. [address] [place] [address] CLIA#[id number] 08/15 CBC w/ auto diff BA # 10^3/u L 0.0 0.2 0.03 FINAL [facility] Whole Blood [facility]. [address] [place] [address] CLIA#[id number] 08/15 CBC w/ auto diff IG # 10^3/u L 0.0 0.03 0.01 FINAL [facility] Whole Blood [place] [address] CLIA#[id number] 08/15 CBC w/ auto diff NRBC, absol [place], x 10^3/ uL 0.0 0.01 0.0% FINAL [facility] Whole Blood [place] [address] CLIA#[id number] 08/15 CBC w/ auto diff NRBC, % 0.0 0.2 0.0% FINAL [facility] Whole Blood [place] [address] CLIA#[id number] Medications Date Name Route Dose Frequency Instructions [...] 08/15/2022 Pain Scale 0.00 Notes Section * CASING TIER - Consult Note <html><head></head><body><div style=text-align:center><span class=clinicalNoteMacroHighlighted id=[id number] macroname= PracticeLetterhead spantype=macro title=#PracticeLetterhead><img height=80 [email or web address]=[id number]" vvrve=529></span>

<span class=clinicalNoteMacroHighlighted id=[id number] macroname=LocationPrintingName spantype=macro title=#LocationPrintingName>[facility]</span>
<span class=clinicalNoteMacroHighlighted id=[id number] macroname=LocationAddress spantype=macro title=#LocationAddress>[address] [facility]
[place] [address]</span>
<stron g>P: </strong><span class=clinicalNoteMacroHighlighted id=mac [id number] macroname=LocationPhoneNumber spantype=macro title =#LocationPhoneNumber> </span>
</div><div>&lt ;br>

<strong>PATIENT: </strong><span class=clini calNoteMacroHighlighted id=[id number] macroname=PatientName&quot ; spantype=macro title=#PatientName>ZACK WILL</span>
&l t;strong>MRN: </strong><span class=clinicalNoteMacroHighlighted id= [id number] macroname=PatientMRN spantype=macro title =#PatientMRN>[id number]</span>
<strong>: </strong><span class=clinicalNoteMacroHighlighted id=[id number] macro name=PatientDateOfBirth spantype=macro [...] Diagnosis recognizeconcepts=true spantype=section suppressempty=& quot;true>Principal Diagnosis</span>
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
<span class=clinicalNoteMacroHighlighted id=[id number] macroname=MenopausalStatus spantype=macro title=#MenopausalStatus> </span>
<span class=clinicalN oteMacroHighlighted id=[id number] macroname=OBGYNHx parame ters=ListType:Bulleted spantype=macro title=#OBGYNHx(ListType:Bulleted )> </span>

<span class=clini calNoteSectionShowSeparators clinicalNoteSectionVisible id=[id number]" internalbreaksection=false originalname=FIRE TENDER History* recognizeconcepts=true spantype=section suppressempty=true>FIRE TENDER History*</span>
G4

<span class=clinicalNoteSectionShowSeparators clinicalNoteSectionVisible id=[id number] internalbreaksection=false [...] Assessed)>Karnofsky Not Assessed</span>

<strong>Vital Signs: </strong><span class=clinic alNoteMacrSCighlighted id=[id number] macroname=PatientHeight&q uot; parameters=Label:Height:,LookBackDays:0,ValueIfNull:None Today spantype=macro title=#PatientHeight(Label:Height:,LookBackDays:0,ValueIfNull:None Today)>Heig ht: 64 in</span>; <span class=clinicalNoteMacroHighlighted id=[id number] macroname=PatientWeight parameters=Label:Weight:,LookBackDays:0, ValueIfNull:None Today spantype=macro title=#PatientWeight(Label:Weight:,Loo kBackDays:0,ValueIfNull:None [...] Markers,Label:Tumor Markers,ValueIfNull:None Today)>Tumor Markers None Today</span>
<span class=clinicalNoteMacroHighmontgomery county memorial hospitaled id =[id number] macroname=RecentLabResultsTable parameters=Opti onalFlowsheetCategory:Urine,Label:Urine,ValueIfNull:None Today spantype=macro [...] class=clinicalNoteMacroHighlighted id=[id number] macroname=MyName spantype=macro" title=#MyName>Evan Adrian MD, [facility]</span>

<span class=clinicalNoteMacroHighlighted id=[id number] macron nicho=NoteRecipients spantype=macro title=#NoteRecipients>CLINTW- Nivia - RF</span>

<span class=clinicalNoteSectionShowSeparators clinicalNoteSectionVisible id=[id number] internalbreaksection="false originalname=Send copy of note to: recognizeconcepts=true" spantype=section suppressempty=true>Send copy of note to:</span>
Corey Monroy MD
Reji Hagan MD

.
</div>

<div><span class=eSignSignature>Electronically signed by Evan Adrian MD, [facility] 08/15/2022 14:08 CDT</span></div></body></html>
--- OUTSIDE RECORDS SUMMARY | 2025-01-20 14:56 | XMS_ITS | CCD ---
Author Name Interface, T4Kcrmerl lity Address [place] breakthroughs[place] [address] Organization [facility] Address More breakthroughs. [place] [address] Care Team Providers Care Realty Specialist Name Role Phone Nguyễn JOSEPH, [facility], Evan Solis Unavailable Unavail able Allergies and [...]
--- OUTSIDE RECORDS SUMMARY | 2025-01-20 14:56 | XMS_ITS | Encounter Summary ---
Author Organization [facility] Address [address] [place] [address] Care Team Providers Care Transition Manager Name Role Phone Elsewhere, Pcp Primary Care Provider Unavailabl e Encounter Details Date Type Department Care Team (Late st Contact Info) Description 01/07/2025 Clinical Communication Department of Oncology in [place], [place] [address] [place] [phone] Sara Rowan P.A.-C., M.S. [address] [place] [phone] Social History Tobacco Use Types Packs/Day Years Used Date Smoking Tobacco: Never Passive Smoke Exposure: Never Smokeless Tobacco: Never Alcohol Use Standard Drinks/Week Comments Yes 1 (1 standard drink = 0.6 oz pur e alcohol) 1 glass wine per month [facility] Utilities Answer Date Recorded In the past 12 months has e [employer], gas, oil, or water [employer] threatened to shut off services in your [...] your living situation today? I have a [facility] place to live 09/30/2024 Comments No [...] PM CDT Clinical Communication Virtual Review in [place], [place] [address] [place] [phone] 01/23/2025 2:15 PM CDT Appointment Department of Radiology, [facility] in [place], [place] [address] [place] [phone] Yossi Cabrera M.D., Ph.D. [address] [place] [phone] 01/26/2025 11:15 AM CDT [facility] [place] [place] [address] [place] [phone] Yossi Cabrera M.D., Ph.D. [address] [place] [phone] 01/26/2025 12:40 PM CDT Lab Department of Laboratory Medicine and Pathology, [facility] in [place], [place] [address] [place] [phone] Yossi Cabrera M.D., Ph.D. [address] [place] [phone] 01/27/2025 1:40 PM CDT Office Visit Department of Oncology in [place], [place] [address] [place] [phone] Sara Rowan P.A.-C., M.S. [address] [place] [phone] 01/27/2025 2:30 PM CDT Infusion Department of Oncology in [place], [place] [address] [place] [phone] Yossi Cabrera M.D., Ph.D. [address] [place] [phone] 03/16/2025 10:30 AM SPECIAL CRIMES INVESTIGATOR Office Visit Department of Oncology in [place], [place] [address] [place] [phone] Yossi Cabrera M.D., Ph.D. [address] [place] [phone] documented as of this encounter Visit Diagnoses Not on filedocumented in this encounter Additional Health Concerns Infection Onset Date Last Indicated Resolved Time Protective Environment 11/04/2024 11/04/2024 documented as of this encounter Care Teams Transition Manager Relationship Specialty Start Date End Date Elsewhere, Pcp PCP - General Internal Medicine 09/28/24 documented as of this encounter
--- OUTSIDE RECORDS SUMMARY | 2025-01-20 14:56 | XMS_ITS ---
Author Organization [facility] Address [address] [place] [address] Care Team Providers Care Battery Container Tester Name Role Phone Elsewhere, Pcp Primary Care Provider Unavailabl e Active Problems * This document contains information received from the source organization and may not represent a complete record from that organization. 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 on 10/22/2024 Other Manager Flight Operations Current Drug Therapy 10/22/2024 Portal Vein Thrombosis 10/09/2024 Anticoagulant Therapy 10/09/2024 Mass Hepatic 10/09/2024 Cancer Uterus Endometrial Personal History 10/09 Malignant Neoplasm Of Uterus Endometrial 018 2018 Overview (10/22/2024): Patient diagnosed with uterine cancer at an outside institution in 2018. She received a total abdominal hysterectomy with oophorectomy. Nine months later she had recurrence, requiring chemotherapy, followed by recurrence, followed by radiation. Her course of radiation finished in July of 2019. Current Treatment and Therapy Plans Nivolumab 3 mg/kg / Ipilimumab 1 mg/kg ( Maintenance Cycles 480 mg every 28 days)* Plan Start Date:10/28/2024 Plan Provider:Yossi Cabrera M.D., Ph.D. Linked Problems Other Assisted Current Drug TherapyMelanoma Skin (HCC) Treatment Medications Current Day (Day 1 , Cycle 5 - Planned for 01/28/2025) Next Day (Day 1, Cycle 6 - Planned for 02/25/2025) ipilimumab (Yervoy) IVPB in 50 mL solutionnivolumab (Opdivo)nivolumab (Opdivo) IVPB in 100 mL (Opdivo) nivolumab 480 mg in NaCl 0.9% 148 mL IVPB (Opdivo) nivolumab 480 mg in NaCl 0.9% 148 mL IVPB (Opdivo) Vascular Access Patency - Peripheral Intravenous Catheter and Rapid Infusion Catheter* Plan Start Date:11/26/2024 Linked Problems Melanoma Skin (HCC) Treatment Medications No medications scheduled. Past Treatment and Therapy Plans Flushes/Hydration Plan Name Start Date Discontinue Date Treatment Medications Discontinue Reason Plan Provider Vascular Access Patency - Peripheral Intravenous Catheter and Rapid Infusion Catheter 11/04/2024 11/04/2024 No medications scheduled. Unlisted - Vascular Access Patency - Peripheral Intravenous Catheter and Rapid Infusion Catheter 11/04/2024 11/04/2024 No medications scheduled. Unlisted - Radiation Treatments * Course 1gBrainMtsSRS 11/11/2024 - 11/11/2024 Treatment Period Energy Fraction Dose Fractions Total Dose Plans Planned [id number] 11/11/2024 - 11/11/2024 2,000 cGy 2,000 cGy Reference Points Delivered 1g_RtFrontal 11/11/2024 - 11/11/2024 2,000 cGy
[2025-01-20 14:57] LABS: Lactate* 1.6 mmol/L (0.5-1.9)
[2025-01-20 15:09] LABS: Slide Review Reflex No
[2025-01-20 15:20] LABS: Albumin* 4.0 g/dL (3.3-5.0); Chloride* 101 mmol/L (96-114); Potassium* 4.0 mmol/L (3.6-5.1); Sodium* 133 mmol/L (135-149)
[2025-01-20 15:22] LABS: Blood Urea Nitrogen* 10 mg/dL (7-30); Creatinine* 0.6 mg/dL (0.5-1.5); Est. Creatinine Clearance* 84.54; Estimated Glomerular Filt Rate 104 ml/min
[2025-01-20 15:23] LABS: Alanine Aminotransferase* 17 U/L (4-35); Alkaline Phosphatase* 167 U/L (40-150); Anion Gap 4 mEq/L (7-15); Aspartate Amino Transferase* 29 U/L (12-35); Bilirubin Direct* 0.2 mg/dL (0.0-0.5); Bilirubin Total* 0.4 mg/dL (0.1-1.5); Calcium* 9.4 mg/dL (8.4-10.6); Carbon Dioxide* 28 mmol/L (20-32); Glucose* 106 mg/dL (60-115); Total Protein* 8.3 g/dL (6.0-8.3)
[2025-01-20 15:48] VITALS: BP 142/73; PULSE 79; RESP 16; O2SAT 100
[2025-01-20 17:25] VITALS: BP 124/72; PULSE 79; RESP 16; O2SAT 99
== END 2025-01-20 17:30 | disposition home or self-care (01) ==
PROVIDERS: Emergency Provider Family Medicine; PCP Family Medicine
DX: R26.81 Unsteadiness on feet (principal); G93.6 Cerebral edema; C79.9 Secondary malignant neoplasm of unspecified site
CPT/HCPCS: 36415; 70450; 70496; 70498; 80048; 80076; 81001; 83605; 83735; 84443; 84484; 85025; 86140; 87086; 93005; 99284; 99285; Q9967